=== PATIENT | male | born 1950 | race Caucasian/White ===

== ENCOUNTER 2024-11-26 22:10 | Inpatient (IN) ==
[2024-11-26] MEDS: ASPIRIN CHEW 324 MG ONE (22:35)
[2024-11-26 22:44] LABS: iSTAT Creatinine 1.2 mg/dl (0.6-1.3); iSTAT Hemoglobin 13.9 g/dl (14.0-18.0); iSTAT Ionized Calcium 1.13 mmol/l (1.12-1.32); iSTAT Potassium 4.6 mmol/L (3.3-5.0)
--- NOTE | 2024-11-26 22:50 | Emergency Department Note ---
Impression & Plan STEMI (ST elevation myocardial infarction), Tobacco use disorder, severe, dependence ED Provider Note CHIEF COMPLAINT: Fall, head injury, indigestion HISTORY OF PRESENT ILLNESS: This 74-year-old male patient past medical history of 1-1/2 pack/day smoker presents to the emergency department with complaints of an episode of nausea with dry heaves, subsequent lightheadedness and unwitnessed fall. Son states that the patient reported earlier that he may have lost consciousness for several seconds. He complains of a bit of nasal pain. Patient has been complaining of pain "just above the bellybutton." Patient denies any chest pain at this time. He states he does not have a family doctor, has not seen his doctor in 12 years. REVIEW OF SYSTEMS: A review of systems was performed with positives and pertinent negatives listed in the history of present illness. 10 systems were reviewed and are otherwise negative. ALLERGIES: see below MEDICATIONS: see below PMH: see below SOCIAL HISTORY: see below DDx: Acute coronary syndrome, aortic dissection, vasovagal syncope, cardiac arrhythmia, among others. PHYSICAL EXAM: Vital signs reviewed. General: Generally well-appearing 74-year-old male, in no significant distress. Thin HEENT: No scleral icterus, PERRLA, neck supple. Small contusion noted over the bridge of the nose. Cardiovascular: Bradycardic, occasional ectopy. No extra sounds. Pulmonary: Diminished breath sounds bilaterally, normal work of breathing. Abdomen: Soft, nontender, nondistended, positive bowel sounds. Musculoskeletal: Atraumatic, no peripheral edema. Neurologic: Patient awake alert and oriented x 3, speech is clear Skin: Warm, dry, no rash EMERGENCY DEPARTMENT COURSE/MDM: This patient was evaluated and appeared to be in no significant distress. Small contusion is noted over the bridge of the nose. The patient is complaining of some mid abdominal "indigestion" but no significant pain. He denies pain in through his back. EKG reveals large ST elevations consistent with ST elevation ID. A heart alert was called. Patient was given [address] imaging of the head and neck were performed due to his head injury/Syncope. CT imaging of the chest was performed to rule out dissection which is negative. Patient was informed of the findings and plan. Dr. Woods arrived at the patient's bedside with the Child Watch Attendant team. The patient was taken to the Child Watch Attendant for definitive management. Dr. Nuñez of the hospitalist service was contacted for admission and further management. MONITORING: An order for cardiac monitoring was placed and the patient is noted to be in a normal sinus rhythm at 71 beats per minute. RADIOLOGY: CT imaging of the head to my interpretation is negative for acute process, otherwise defer to radiology's over read. CT of the cervical spine is negative for acute fracture per radiology. Otherwise defer to radiology over read below CT imaging of the chest reveals no evidence of aortic dissection to my interpretation, otherwise see radiology's over read below. EKG: To my interpretation reveals a sinus bradycardia at [address] elevations in the anterior septal distribution, ST elevation ID. QTc of 477, no PVC, no PAC. DISPOSITION: Child Watch Attendant I have personally spent greater than 35 minutes of critical care time in the direct management of this patient. This includes bedside care, interpretation of diagnostic studies, and testing, discussion with consultants, patient, and family members, and other required patient management activities. This 35 minutes is in excess of all separately billable procedures. Past Med/Surg History Problem List (Updated 11/27/24 @ 12:16 by Michelle Herrera MD) COPD with emphysema NSVT (nonsustained ventricular tachycardia) Transaminitis Pulmonary nodule Elevated troponin Hypothyroidism (acquired) Tobacco use disorder, severe, dependence (Acute) STEMI (ST elevation myocardial infarction) (Acute) Social History Smoking Status: Current every day smoker Tobacco Type: Cigarettes Cigarettes Per Day: 30; Do You Dip or Chew Tobacco: No; Hx Alcohol Use: Yes Hx Substance Use: No Preferred Language: [place] Communication Ability: Effective Block Feeder Required: No Beliefs That Will Affect Care: None Current Living Situation: Spouse Feels Safe at Home: Yes Safety Concerns: Feels Safe At This Time Assistive Devices: Denture - Upper, Denture - Lower and Glasses Allergies Allergies Allergy/AdvReac Type Severity Reaction Status Date / Time No Known Allergies Allergy Unverified 11/27/24 00:59 Results & Data (ED) Vital Signs Vital Signs - 24 hr 11/26/24 22:13 11/26/24 22:29 11/26/24 22:30 Temperature 36.1 C L Temperature Source Temporal Artery Scan Pulse Rate 121 H 71 Pulse Rate [Apical] Pulse Rate from SpO2 Sensor Pulse Rhythm Pulse Rhythm [Apical] Pulse Strength [Apical] Respiratory Rate 14 Respiratory Effort / Characteristics Non-Labored Respiratory Depth Normal Respiratory Pattern Regular Blood Pressure 129/94 128/98 Blood Pressure [Right Radial Artery] Blood Pressure Mean 105 103 Blood Pressure Mean [Right Radial Artery] Blood Pressure Position [Right Radial Artery] Pulse Oximetry 99 Oxygen Delivery Method Room Air Oxygen Flow Rate Sepsis Recent Fever Within 48 Hours Yes Sepsis New/Unexplained Change in Mental Status N/A Sepsis Action Taken by Nursing No Action Required 11/26/24 22:38 11/26/24 22:45 11/26/24 22:46 Temperature Temperature Source Pulse Rate 85 Pulse Rate [Apical] Pulse Rate from SpO2 Sensor Pulse Rhythm Irregular Pulse Rhythm [Apical] Regular Pulse Strength [Apical] Normal Respiratory Rate 17 18 Respiratory Effort / Characteristics Non-Labored Respiratory Depth Normal Respiratory Pattern Regular Blood Pressure Blood Pressure [Right Radial Artery] 123/74 Blood Pressure Mean Blood Pressure Mean [Right Radial Artery] 90 Blood Pressure Position [Right Radial Artery] Sitting Pulse Oximetry 96 96 Oxygen Delivery Method Room Air Room Air Room Air Oxygen Flow Rate 96 Sepsis Recent Fever Within 48 Hours Sepsis New/Unexplained Change in Mental Status Sepsis Action Taken by Nursing 11/26/24 22:52 11/26/24 22:52 11/26/24 22:57 Temperature Temperature Source Pulse Rate 79 Pulse Rate [Apical] Pulse Rate from SpO2 Sensor 78 Pulse Rhythm Pulse Rhythm [Apical] Pulse Strength [Apical] Respiratory Rate 14 Respiratory Effort / Characteristics Respiratory Depth Respiratory Pattern Blood Pressure 151/107 H 151/107 H Blood Pressure [Right Radial Artery] Blood Pressure Mean 124 124 Blood Pressure Mean [Right Radial Artery] Blood Pressure Position [Right Radial Artery] Pulse Oximetry 97 Oxygen Delivery Method Oxygen Flow Rate Sepsis Recent Fever Within 48 Hours Sepsis New/Unexplained Change in Mental Status Sepsis Action Taken by Nursing 11/26/24 22:58 11/26/24 22:58 Temperature Temperature Source Pulse Rate Pulse Rate [Apical] 76 Pulse Rate from SpO2 Sensor Pulse Rhythm Pulse Rhythm [Apical] Pulse Strength [Apical] Respiratory Rate 20 Respiratory Effort / Characteristics Respiratory Depth Respiratory Pattern Blood Pressure 148/105 H Blood Pressure [Right Radial Artery] 148/105 H Blood Pressure Mean 117 Blood Pressure Mean [Right Radial Artery] 119 Blood Pressure Position [Right Radial Artery] Pulse Oximetry 95 Oxygen Delivery Method Room Air Oxygen Flow Rate Sepsis Recent Fever Within 48 Hours Sepsis New/Unexplained Change in Mental Status Sepsis Action Taken by Detention Medications Current Medication List: was personally reviewed by me Laboratory Data Attestation: I reviewed the patient's lab results. 11/27/24 04:22 11/27/24 04:22 Lab Results 11/26/24 11/26/24 Range/Units 22:28 22:31 WBC 13.24 H (4.8-10.8) K/ul RBC 4.72 (4.70-6.10) M/uL Hgb 13.6 L (14.0-18.0) g/dl POC Hgb 13.9 L (14.0-18.0) g/dl Hct 40.5 L (42.0-52.0) % POC Hct 41 L (42-52) % MCV 85.8 (80.0-100.0) fL MCH 28.8 (25.0-34.0) pg MCHC 33.6 (32.0-36.0) g/dL RDW Std Deviation 46.3 (36.4-46.3) fL RDW Coeff of Roseanne 14.6 H (11.5-14.5) % Plt Count 266 (130-400) K/uL MPV 9.1 L (9.4-12.4) fL Immature Gran % (Auto) 0.7 % Neut % (Auto) 74.7 % Lymph % (Auto) 16.5 % Harris % (Auto) 5.2 % Eos % (Auto) 2.1 % Baso % (Auto) 0.8 % Neut # (Auto) 9.89 H (1.40-6.50) K/uL Lymph # (Auto) 2.18 (1.20-3.40) K/uL Harris # (Auto) 0.69 H (0.11-0.59) K/uL Eos # (Auto) 0.28 (0.00-0.50) K/uL Baso # (Auto) 0.11 (0.00-0.20) K/uL Immature Gran # (Auto) 0.09 (0.01-0.20) K/uL PT 10.7 (9.0-12.0) Seconds INR 1.0 (0.9-1.1) APTT 24 (21-31) Seconds PTT Ratio 0.9 POC Sodium 139 (135-144) mmol/L Sodium 139 (136-145) mmol/L POC Potassium 4.6 (3.3-5.0) mmol/L Potassium 4.6 (3.5-5.1) mmol/L POC Chloride 107 (101-112) mmol/L Chloride 107 (98-107) mmol/L Carbon Dioxide 21 (21-32) mmol/L POC Total CO2 19 L (24-31) mmol/L Anion Gap 11 (3-11) POC Anion Gap 18.0 (16-25) mmol/L POC BUN 20 H (7-18) mg/dl BUN 21 (6-23) mg/dl Creatinine 1.21 (0.6-1.4) mg/dl POC Creatinine 1.2 (0.6-1.3) mg/dl Est Cr Clr Drug Dosing 44.4 ml/min eGFR 62.83 BUN/Creatinine Ratio 17.4 (10-20) Glucose 106 H (70-99(Fasting)) mg/dl POC Glucose (other) 100 H (70-99) mg/dl Calcium 9.6 (8.6-10.3) mg/dl POC Ioniz Calcium Dave 1.13 (1.12-1.32) mmol/l Magnesium 2.2 (1.7-2.4) mg/dl Total Bilirubin 0.5 (0.2-1.0) mg/dl AST 15 (13-39) U/L ALT 11 (7-52) U/L Alkaline Phosphatase 63 (34-104) U/L Total Creatine Kinase 152 (30-223) U/L Troponin I High Sens 108.3 H* (0-20) pg/ml B-Natriuretic Peptide 196 H (0-100) pg/ml Total Protein 7.6 (6.0-8.3) gm/dl Albumin 4.2 (3.4-5.0) gm/dl Globulin 3.4 (2.5-4.0) gm/dl Albumin/Globulin Ratio 1.2 (0.9-2) Lipase 18 (11-82) U/L TSH 10.959 H (0.300-4.500) uIu/ml Free T4 1.12 (0.61-1.60) ng/dl Administered Medications Aspirin ([facility]spirin 81 Mg Ectab) [facility] [place]: 12/27/24 08:59 Last Admin: 11/27/24 09:38 Dose: 81 mg Documented By: JAXSON Atorvastatin Calcium (Atorvastatin 40 Mg Tab) [address] [facility] Stop: 12/27/24 08:59 Last Admin: 11/27/24 09:37 Dose: 80 mg Documented By: JAXSON Lisinopril (Lisinopril 5 Mg Tab) [facility] [place] Stop: 12/27/24 08:59 Last Admin: 11/27/24 09:36 Dose: Not Given Documented By: JAXSON Metoprolol Tartrate (Metoprolol Tartrate 25 Mg Tab) 12.5 mg PO BID [facility] Stop: 12/27/24 08:59 Last Admin: 11/27/24 11:13 Dose: 12.5 mg Documented By: JAXSON Miscellaneous (Icu Protocol For Hyperglycemia) 1 each N/A ACHS [facility] Stop: 11/29/24 07:29 Last Admin: 11/27/24 11:14 Dose: Not Given Documented By: Admin: 11/27/24 08:00 Dose: Not Given Documented By: JAXSON Nicotine (Nicotine 21 Mg/24 Hr Tdsy) [address] [facility] Stop: 12/27/24 08:59 Last Admin: 11/27/24 09:38 Dose: Not Given Documented By: JAXSON Umeclidinium Pyote (Umeclidinium Pyote 62.5mcg/Blister 7 Puffs/Inhaler) 1 puffs INH DAILY [facility] Stop: 12/27/24 08:59 Last Admin: 11/27/24 09:38 Dose: Not Given Documented By: JAXSON Discontinued Medications Amiodarone HCl/Dextrose (Amiodarone 150mg / 100ml D5w) Confirm Administered Dose 150 mg IV .STK-MED ONE Stop: 11/26/24 23:15 Last Admin: 11/27/24 02:23 Dose: Not Given Documented By: SHADY Aspirin (Aspirin Chew 324 Mg) Confirm Administered Dose 324 mg .ROUTE .STK-MED ONE Stop: 11/26/24 22:35 Last Admin: 11/26/24 22:35 Dose: 324 mg Documented By: JULISA Aspirin (Aspirin Chew 324 Mg) 324 mg PO NOW STA Stop: 11/26/24 22:39 Last Admin: 11/26/24 22:51 Dose: Not Given Documented By: JULISA Eptifibatide (Eptifibatide 2 Mg/Ml 10 Ml Vial (Child Watch Attendant Use Only)) Confirm Administered Dose 20 mg IV .STK-MED ONE Stop: 11/26/24 23:30 Last Admin: 11/26/24 23:48 Dose: 20 mg Documented By: LOCO Eptifibatide (Eptifibatide 0.75 Mg/Ml 75mg Vial (Child Watch Attendant Use Only)) Confirm Administered Dose 75 mg IV .STK-MED ONE Stop: 11/26/24 23:30 Last Admin: 11/26/24 23:48 Dose: 75 mg Documented By: LOCO Fentanyl Citrate (Fentanyl Citrate Pf 100 Mcg/2 Ml Vial) Confirm Administered Dose 100 mcg .ROUTE .STK-MED ONE Stop: 11/26/24 22:51 Last Admin: 11/27/24 02:22 Dose: Not Given Documented By: SHADY Heparin Sodium (Porcine) (Heparin (Porcine) 1000 Unit/Ml 10 Ml (Child Watch Attendant Use Only)) Confirm Administered Dose 10,000 units .ROUTE .STK-MED ONE Stop: 11/26/24 22:51 Last Admin: 11/27/24 02:23 Dose: Not Given Documented By: SHADY Heparin Sodium/Sodium Chloride (Heparin In Nss Infusion 1000 Unit/500 Ml (2 U/Ml) Bag) Confirm Administered Dose 3,000 units IV .STK-MED ONE Stop: 11/26/24 22:51 Last Admin: 11/26/24 23:19 Dose: 3,000 units Documented By: CEDRIC Eptifibatide (Integrilin) 75 mg in 100 mls @ 4.688 mls/hr IV .[id number] [facility]; Protocol Stop: 11/27/24 02:30 Last Infusion: 11/27/24 02:21 Dose: Infused Documented By: SHADY Co-signed By: DAYRON Admin: 11/27/24 01:15 Dose: 1 mcg/kg/min, 4.7 mls/hr Documented By: SHADY Co-signed By: DAYRON Pantoprazole Sodium (Protonix) 40 mg in 10 mls @ 5 mls/min IV Q24H [facility] Stop: 12/27/24 08:59 Last Admin: 11/27/24 09:38 Dose: Not Given Documented By: JAXSON Ioversol (Optiray 350) Confirm Administered Dose 1 ml .ROUTE .STK-MED ONE Stop: 12/31/24 22:51 Last Admin: 11/27/24 02:23 Dose: Not Given Documented By: SHADY Ioversol (Optiray 320 125ml) 118 ml IV ONCE ONE Stop: 11/26/24 22:55 Last Admin: 11/26/24 22:55 Dose: 118 ml Documented By: WILFRED Metoprolol Tartrate (Metoprolol Tartrate 25 Mg Tab) 12.5 mg PO DAILY [facility] Stop: 11/26/24 22:38 Last Admin: 11/26/24 22:55 Dose: Not Given Documented By: JULISA Midazolam HCl (Midazolam Hcl 1 Mg/Ml 2ml Vial) Confirm Administered Dose 2 mg .ROUTE .STK-MED ONE Stop: 11/26/24 22:51 Last Admin: 11/27/24 02:23 Dose: Not Given Documented By: SHADY Nicardipine HCl (Nicardipine 2,000 Mcg/20 Ml Syr) Confirm Administered Dose 2,000 mcg .ROUTE .STK-MED ONE Stop: 11/26/24 22:52 Last Admin: 11/26/24 23:19 Dose: 2,000 mcg Documented By: CEDRIC Nitroglycerin/Dextrose (Nitroglycerin/D5w 100mcg/Ml 20ml Syr) Confirm Administered Dose 2,000 mcg .ROUTE .STK-MED ONE Stop: 11/26/24 22:52 Last Admin: 11/26/24 23:19 Dose: 2,000 mcg Documented By: CEDRIC Norepinephrine Bitartrate (Norepinephrine/D5w 4 Mg/250 Ml) Confirm Administered Dose 4 mg IV .STK-MED ONE Stop: 11/26/24 23:39 Last Admin: 11/26/24 23:49 Dose: 4 mg Documented By: LOCO Co-signed By: NATALIE Norepinephrine Bitartrate (Norepinephrine/D5w 4 Mg/250 Ml) Confirm Administered Dose 4 mg IV .STK-MED ONE Stop: 11/26/24 23:40 Last Admin: 11/26/24 23:49 Dose: Not Given Documented By: LOCO Ondansetron HCl (Ondansetron Inj 2 Mg/Ml 2 Ml Vial) Confirm Administered Dose 4 mg .ROUTE .STK-MED ONE Stop: 11/26/24 22:53 Last Admin: 11/26/24 22:54 Dose: 4 mg Documented By: JULISA Ondansetron HCl (Ondansetron Inj 2 Mg/Ml 2 Ml Vial) 4 mg IV NOW STA Stop: 11/26/24 22:54 Last Admin: 11/26/24 23:48 Dose: 4 mg Documented By: LOCO Oxymetazoline HCl (Oxymetazoline 0.05% 30 Ml Btl) 1 sprays NA NOW ONE Stop: 11/27/24 02:39 Last Admin: 11/27/24 03:19 Dose: 1 sprays Documented By: SHADY Pantoprazole Sodium (Pantoprazole 40 Mg Tab) 40 mg PO NOW STA Stop: 11/27/24 09:50 Last Admin: 11/27/24 11:13 Dose: Not Given Documented By: JAXSON Ticagrelor (Ticagrelor 90 Mg Tab) Confirm Administered Dose 180 mg .ROUTE .STK- MED ONE Stop: 11/26/24 23:04 Last Admin: 11/26/24 23:19 Dose: 180 mg Documented By: LOCO Discharge Plan Visit Data Chief Complaint: Abdominal Pain Stated Complaint: LIGHTHEADED, FELL ON FACE, SOB, ABD PAIN ED Provider: Michelle Herrera Discharge Problem: STEMI (ST elevation myocardial infarction), Tobacco use disorder, severe, dependence Discharge Instructions Interventions: ED Discharge Assessment Last Done: 11/26/24 22:58 Discharge Problem: STEMI (ST elevation myocardial infarction) Qualifiers: Involved coronary artery: LAD coronary artery Qualified Code(s): I21.02 - ST elevation (STEMI) myocardial infarction involving left anterior descending coronary artery
[2024-11-26] MEDS: ASPIRIN CHEW 324 MG PO STA (22:51)
[2024-11-26] MEDS: METOPROLOL TARTRATE 25 MG TAB PO STA (22:51)
[2024-11-26 22:53] LABS: Basophils # (auto) 0.11 K/uL (0.00-0.20); Basophils % (auto) 0.8 %; Eosinophils # (auto) 0.28 K/uL (0.00-0.50); Eosinophils % (auto) 2.1 %; Hematocrit (blood only) 40.5 % (42.0-52.0); Hemoglobin 13.6 g/dl (14.0-18.0); Immature Granulocytes # (auto) 0.09 K/uL (0.01-0.20); Immature Granulocytes % (auto) 0.7 %; Lymphocytes # (auto) 2.18 K/uL (1.20-3.40); Lymphocytes % (auto) 16.5 %; Mean Corpuscular Hemoglobin 28.8 pg (25.0-34.0); Mean Corpuscular Hgb Conc 33.6 g/dL (32.0-36.0); Mean Corpuscular Volume 85.8 fL (80.0-100.0); Mean Platelet Volume 9.1 fL (9.4-12.4); Monocytes # (auto) 0.69 K/uL (0.11-0.59); Monocytes % (auto) 5.2 %; Neutrophils # (auto) 9.89 K/uL (1.40-6.50); Neutrophils % (auto) 74.7 %; Platelet Count 266 K/uL (130-400); RDW Coefficient of Variation 14.6 % (11.5-14.5); RDW Standard Deviation 46.3 fL (36.4-46.3); Red Blood Count 4.72 M/uL (4.70-6.10); White Blood Count 13.24 K/ul (4.8-10.8)
[2024-11-26] MEDS: ONDANSETRON INJ 2 MG/ML 2 ML VIAL ONE (22:54)
[2024-11-26] MEDS: OPTIRAY 320 125ml IV ONE (22:55)
--- NOTE | 2024-11-26 23:07 | History & Physical Report ---
Date of Service November 26, 2024 Assessment & Plan (1) Tobacco use disorder, severe, dependence: (2) Hypothyroidism (acquired): (3) Elevated troponin: (4) STEMI (ST elevation myocardial infarction): Plan The patient is a 74-year-old male with past medical history significant for 1- 1/2 pack/day smoking, and has not been involved with medical care for the past 12 years. He presents to the emergency department with symptoms of an episode of nausea with dry heaves, lightheadedness, and had an unwitnessed fall. Upon presentation to the emergency department initial workup included an EKG, which showed STEMI involving inferior and lateral chest leads. He was given aspirin 324 mg, metoprolol tartrate 12.5 mg, and heart alert was called at that time. He was then taken to the cardiac catheterization lab by Dr. Vicente Woods, interventional cardiology, with separate report to follow #NSTEMI/heart alert- Admitted to intensive care unit Initial troponin 108.3 Order complete echocardiogram and serial laboratories Patient received stents x 2 for mid LAD occlusion There is an additional 75% circumflex lesion that patient may need to be taken back to the [facility] later in hospitalization He received aspirin 3 and 24 mg in the ED Continue aspirin 81 mg daily Metoprolol tartrate 12.5 mg p.o. twice daily Brilinta 90 mg p.o. twice daily Atorvastatin 80 mg daily Lisinopril 5 mg daily All of the cardiac medications per Dr. Woods Check a fasting lipid panel and hemoglobin A1c #Syncopal episode- CT scan of brain without contrast was unremarkable CT scan of cervical spine showed reversal of normal lordosis. Hypertrophic degenerative changes. Mild multilevel disc protrusions CTA PE protocol was negative for PE #Tobacco use disorder- 1.5 packs/day currently use NicoDerm patch #Hypothyroidism- Routine labs showed TSH 10.959 Can be addressed in the outpatient setting History of Present Illness Chief Complaint: The patient presented to the emergency department with an episode of nausea with dry heaves, lightheadedness, and then an unwitnessed fall. He was unsure of the length of time they have lost consciousness, but thinks was for several seconds. He also had complaint of nasal pain. Primary Care Provider: NO PCP The patient is a 74-year-old male with past medical history significant for 1- 1/2 pack/day smoking, and has not been involved with medical care for the past 12 years. He presents to the emergency department with symptoms of an episode of nausea with dry heaves, lightheadedness, and had an unwitnessed fall. Upon presentation to the emergency department initial workup included an EKG, which showed STEMI involving inferior and lateral chest leads. He was given aspirin 324 mg, metoprolol tartrate 12.5 mg, and heart alert was called at that time. He was then taken to the cardiac catheterization lab by Dr. Vicente Woods, interventional cardiology, with separate report to follow Allergies Allergy/AdvReac Type Severity Reaction Status Date / Time No Known Allergies Allergy Unverified 11/27/24 00:59 Past Med/Surg History Problem List (Updated 11/27/24 @ 04:57 by Mejia Anthony MD) Elevated troponin Hypothyroidism (acquired) Tobacco use disorder, severe, dependence STEMI (ST elevation myocardial infarction) Social History Smoking Status: Current every day smoker Tobacco Type: Cigarettes Cigarettes Per Day: 30; Do You Dip or Chew Tobacco: No; Hx Alcohol Use: Yes Hx Substance Use: No Preferred Language: Comoran Communication Ability: Effective Boiler Tender Required: No Beliefs That Will Affect Care: None Current Living Situation: Spouse Feels Safe at Home: Yes Safety Concerns: Feels Safe At This Time Assistive Devices: Denture - Upper, Denture - Lower and Glasses Review of Systems Review of Systems: The patient denies palpitations, lower extremity swelling, sore throat, fevers, chills, sweats, weight change, fatigue, nausea, vomiting, diarrhea , constipation, abdominal pain, pelvic pain, blood in urine or stool, dysuria, urinary frequency or urgency, lightheadedness, dizziness, headache, rash, abnormal bruising or bleeding, focal weakness, numbness or tingling in arms or legs, generalized arthralgias or myalgias, back or neck pain, or night sweats. The review of systems is otherwise negative other than for that already noted above, and at least 10 systems have been reviewed. Physical Exam Physical Exam: The patient is awake, alert and oriented 3, well developed and well nourished, normocephalic and atraumatic, lying in bed and in no acute distress. HEENT--PERRL, EOMI, mucous membranes and oropharynx mildly dry. Neck--supple. No JVD. No bruits. Thyroid normal, trachea midline, no adenopathy. Heart--normal S1 and S2. No murmurs, rubs or gallops. Lungs--decreased breath sounds throughout. No respiratory distress, no accessory muscle use. Abdomen--normal bowel sounds and soft. Nontender. Nondistended, no hernias or masses, no organomegaly. Extremities--no cyanosis or clubbing. No edema. There are good distal pulses b/l. Dermatologic--normal skin turgor, normal color, no abnormal lymph nodes, no rash. Neurologic--cranial nerves II through XII grossly intact. Rheumatologic--normal range of motion. Psychiatric--normal affect. Results & Data Results & Data Vital Signs (Past 12 Hours) Vital Signs Temp Pulse Pulse Resp BP BP Pulse Ox 11/26/24 22:58 76 20 148/105 H 95 11/26/24 22:46 18 123/74 96 11/26/24 22:45 11/26/24 22:38 85 17 96 11/26/24 22:30 71 11/26/24 22:13 36.1 C L 121 H 14 129/94 99 O2 Del Method O2 Flow Rate 11/26/24 22:58 Room Air 11/26/24 22:46 Room Air 11/26/24 22:45 Room Air 96 11/26/24 22:38 Room Air 11/26/24 22:30 11/26/24 22:13 Room Air Laboratory Results Laboratory Results WBC 13.47 K/ul (4.8-10.8) H 11/27/24 04:22 RBC 4.32 M/uL (4.70-6.10) L 11/27/24 04:22 Hgb 12.5 g/dl (14.0-18.0) L 11/27/24 04:22 POC Hgb 13.9 g/dl (14.0-18.0) L 11/26/24 22:31 Hct 37.3 % (42.0-52.0) L 11/27/24 04:22 POC Hct 41 % (42-52) L 11/26/24 22:31 MCV 86.3 fL (80.0-100.0) 11/27/24 04:22 MCH 28.9 pg (25.0-34.0) 11/27/24 04:22 MCHC 33.5 g/dL (32.0-36.0) 11/27/24 04:22 RDW Std Deviation 46.5 fL (36.4-46.3) H 11/27/24 04:22 RDW Coeff of Roseanne 14.6 % (11.5-14.5) H 11/27/24 04:22 Plt Count 260 K/uL (130-400) 11/27/24 04:22 MPV 8.9 fL (9.4-12.4) L 11/27/24 04:22 Immature Gran % (Auto) 0.4 % 11/27/24 04:22 Neut % (Auto) 82.7 % 11/27/24 04:22 Lymph % (Auto) 10.4 % 11/27/24 04:22 O'Brien % (Auto) 5.6 % 11/27/24 04:22 Eos % (Auto) 0.4 % 11/27/24 04:22 Baso % (Auto) 0.5 % 11/27/24 04:22 Neut # (Auto) 11.12 K/uL (1.40-6.50) H 11/27/24 04:22 Lymph # (Auto) 1.40 K/uL (1.20-3.40) 11/27/24 04:22 O'Brien # (Auto) 0.76 K/uL (0.11-0.59) H 11/27/24 04:22 Eos # (Auto) 0.06 K/uL (0.00-0.50) 11/27/24 04:22 Baso # (Auto) 0.07 K/uL (0.00-0.20) 11/27/24 04:22 Immature Gran # (Auto) 0.06 K/uL (0.01-0.20) 11/27/24 04:22 PT 10.7 Seconds (9.0-12.0) 11/26/24 22:28 INR 1.0 (0.9-1.1) 11/26/24 22: APTT 24 Seconds (21-31) 11/26/24 22: PTT Ratio 0.9 11/26/24 22:28 POC Sodium 139 mmol/L (135-144) 11/26/24 22:31 Sodium 139 mmol/L (136-145) 11/26/24 22:28 POC Potassium 4.6 mmol/L (3.3-5.0) 11/26/24 22: Potassium 4.6 mmol/L (3.5-5.1) 11/26/24 22:28 POC Chloride 107 mmol/L (101-112) 11/26/24 22: Chloride 107 mmol/L (98-107) 11/26/24 22:28 Carbon Dioxide 21 mmol/L (21-32) 11/26/24 22: POC Total CO2 19 mmol/L (24-31) L 11/26/24 22: Anion Gap 11 (3-11) 11/26/24 22:28 POC Anion Gap 18.0 mmol/L (16-25) 11/26/24 22:31 POC BUN 20 mg/dl (7-18) H 11/26/24 22: BUN 21 mg/dl (6-23) 11/26/24 22: Creatinine 1.21 mg/dl (0.6-1.4) 11/26/24 22: POC Creatinine 1.2 mg/dl (0.6-1.3) 11/26/24 22: Est Cr Clr Drug Dosing 44.4 ml/min 11/26/24 22: eGFR 62.83 11/26/24 22:28 BUN/Creatinine Ratio 17.4 (10-20) 11/26/24 22:28 Glucose 106 mg/dl (70-99(Fasting)) H 11/26/24 22:28 POC Glucose 101 mg/dl (70-99) H 11/27/24 01:24 POC Glucose (other) 100 mg/dl (70-99) H 11/26/24 22: Calcium 9.6 mg/dl (8.6-10.3) 11/26/24 22:28 POC Ioniz Calcium Dave 1.13 mmol/l (1.12-1.32) 11/26/24 22: Magnesium 2.2 mg/dl (1.7-2.4) 11/26/24 22:28 Total Bilirubin 0.5 mg/dl (0.2-1.0) 11/26/24 22:28 AST 15 U/L (13-39) 11/26/24 22: ALT 11 U/L (7-52) 11/26/24 22:28 Alkaline Phosphatase 63 U/L (34-104) 11/26/24 22:28 Total Creatine Kinase 152 U/L (30-223) 11/26/24 22:28 Troponin I High Sens 702353.2 pg/ml (0-20) H* D 11/27/24 00:34 B-Natriuretic Peptide 196 pg/ml (0-100) H 11/26/24 22:28 Total Protein 7.6 gm/dl (6.0-8.3) 11/26/24 22:28 Albumin 4.2 gm/dl (3.4-5.0) 11/26/24 22:28 Globulin 3.4 gm/dl (2.5-4.0) 11/26/24 22:28 Albumin/Globulin Ratio 1.2 (0.9-2) 11/26/24 22:28 Lipase 18 U/L (11-82) 11/26/24 22:28 TSH 10.959 uIu/ml (0.300-4.500) H 11/26/24 22:28 Free T4 1.12 ng/dl (0.61-1.60) 11/26/24 22:28 Nasal Screen MRSA (PCR) Negative (Negative) 11/27/24 00:[address] 11/26/24 22:24 Exam(s): CT C SPINE EXAM: CT Cervical Spine Without Intravenous Contrast CLINICAL HISTORY: Reason for exam: trauma. TECHNIQUE: Axial computed tomography images of the cervical spine without intravenous contrast. Automated exposure control was utilized for the study. A dose lowering technique was utilized adhering to the principles of ALARA. COMPARISON: No relevant prior studies available. FINDINGS: Vertebrae: There is reversal of the normal cervical lordosis. No acute fracture. There are hypertrophic degenerative changes. Discs/spinal canal/neural foramina: There are mild multilevel disc protrusions.. Soft tissues: There are retained foodstuffs within the esophagus. IMPRESSION: Reversal of normal cervical lordosis. Hypertrophic degenerative changes. There are mild multilevel disc protrusions. If further evaluation is clinically necessary, consider correlation with MRI Electronically signed by: Osmani Rosa MD 11/26/24 23:[address] 11/26/24 22:24 Exam(s): CT HEAD Without Contrast EXAM: CT Head Without Intravenous Contrast CLINICAL HISTORY: Reason for exam: CHI. TECHNIQUE: Axial computed tomography images of the head/brain without intravenous contrast. Automated exposure control was utilized for the study. A dose lowering technique was utilized adhering to the principles of ALARA. COMPARISON: No relevant prior studies available. FINDINGS: Brain: No acute intracranial hemorrhage. No significant white matter disease. No edema. Ventricles: Unremarkable. No ventriculomegaly. Bones/joints: Unremarkable. No acute fracture. Soft tissues: Unremarkable. Sinuses: There is a retention polyp or cyst noted within the left maxillary sinus.. Mastoid air cells: Unremarkable as visualized. No mastoid effusion. IMPRESSION: Unremarkable noncontrast CT scan of the brain Electronically signed by: Osmani Rosa MD 11/26/24 23:25 PM Chest CTA 11/26/24 22:33 Exam(s): CTA CHEST W/WO Contrast IV Amt: 118 cc's optiray 320 EXAM: CT Angiography Chest Without and With Intravenous Contrast CLINICAL HISTORY: Reason for exam: CP, STEMI, ABD pain. TECHNIQUE: Axial computed tomographic angiography images of the chest without and with intravenous contrast. CTDI is 8.88 mGy and DLP is 1888.58 mGy-cm. Automated exposure control was utilized for the study. A dose lowering technique was utilized adhering to the principles of ALARA. MIP reconstructed images were created and reviewed. CONTRAST: Patient received 118 cc's optiray 320 of IV contrast COMPARISON: No relevant prior studies available. FINDINGS: Aorta: There is ectasia and calcification noted of the thoracic aorta.. No thoracic aortic aneurysm or dissection is seen. Lungs: There are emphysematous changes. There is dependent atelectasis with possible bibasilar scarring.. Pleural space: No significant effusion. No pneumothorax. Heart: The heart is normal in size.. Bones/joints: There are degenerative changes in the spine. Soft tissues: Unremarkable. Lymph nodes: No enlarged lymph nodes. IMPRESSION: No thoracic aortic aneurysm or dissection is seen. See discussion above Electronically signed by: Osmani Rosa MD 11/26/24 23:14 PM Code Status & VTE Plan Code Status Full code VTE Prophylaxis Plan VTE Prophylaxis will be ordered: Yes Critical Care Time 50 minutes PG Care Time/CCT Total # of Minutes Spent Total Time Spent with Patient: Total time spent is greater than 50% in coordination of care (as documented) at patient's floor/unit and/or counseling patient: Coding Level of Care Code 82105 INT INP/OBS CARE MIN Diagnoses Tobacco use disorder, severe, dependence F17.200 Hypothyroidism (acquired) E03.9 Elevated troponin R79.89 STEMI (ST elevation myocardial infarction) I21.3
--- NOTE | 2024-11-26 23:09 | Pre Anesthesia Assessment ---
Date of Service November 26, 2024 Pre Sedation Assessment Vital Signs Temp Pulse Pulse Resp BP BP Pulse Ox 11/26/24 22:58 76 20 148/105 H 95 11/26/24 22:46 18 123/74 96 11/26/24 22:45 11/26/24 22:38 85 17 96 11/26/24 22:30 71 11/26/24 22:13 97.0 F L 121 H 14 129/94 99 O2 Del Method O2 Flow Rate 11/26/24 22:58 Room Air 11/26/24 22:46 Room Air 11/26/24 22:45 Room Air 96 11/26/24 22:38 Room Air 11/26/24 22:30 11/26/24 22:13 Room Air Cardiovascular + regular rate Respiratory + respiratory effort normal Pre-Sedation Airway Assessment Smoking Status: Current every day smoker Hx Sleep Apnea: No Hx Difficult Intubation: No Short, Thick Neck: No Thyromental Distance: < 3.5 Finger Breadths Oral Cavity: + WNL Mallampati Class: III ASA: ASA4 Procedure Planning Contraindications for Sedation: none Current Medications Reviewed: Yes Notes The planned sedation has been discussed with the patient. Informed Consent was obtained. I have identified the patient, determined the appropriateness of sedation and have assessed the patient immediately prior to the procedure. All medicine(s) and interventions are by my order.
[2024-11-26 23:11] LABS: Albumin Globulin Ratio 1.2 (0.9-2); Albumin Level 4.2 gm/dl (3.4-5.0); BUN Creatinine Ratio 17.4 (10-20); Bilirubin,Total 0.5 mg/dl (0.2-1.0); Calcium 9.6 mg/dl (8.6-10.3); Creatinine Clr Calc Pharmacy 44.4 ml/min; Globulin 3.4 gm/dl (2.5-4.0); Magnesium 2.2 mg/dl (1.7-2.4); Potassium 4.6 mmol/L (3.5-5.1); Total Protein 7.6 gm/dl (6.0-8.3)
--- NOTE | 2024-11-26 23:12 | Cardiology Consultation ---
Date of Consultation November 26, 2024 Assessment & Plan (1) STEMI (ST elevation myocardial infarction): Unusual presentation but ECG consistent with inferolateral STEMI and having increased ventricular ectopy on telemetry. Recommend proceeding with emergent cardiac catheterization and likely primary PCI. No apparent contraindications to procedure. Discussed risks, benefits, alternatives of procedure with patient and they are willing to proceed. Further recommendations pending findings of coronary angiography. History of Present Illness History of Present Illness 74-year-old man here with abdominal pain, vomiting and abnormal ECG consistent with inferolateral [place]. Patient seen emergently in the ED after heart alert activated in ED. No prior cardiac history. Cardiac risk factors include ongoing tobacco use (1 to 1.5 packs/day). Other medical issues include prostate issues, colonic polyps with rare GI bleeding but takes no medications and does not see a doctor regularly. Denies any recent chest pain. States he has been having intermittent epigastric abdominal pain more so after meals for months. Symptoms worse over the last 2 days. Has been limiting food intake to reduce symptoms. Tonight developed discomfort followed by nausea with dry heaving. Went to bathroom where while trying to vomit seem to pass out striking his nose on floor/toilet. Continued to have epigastric pain and brought to the ED by son. On arrival here still chest pain-free. ECG showed sinus rhythm with ST elevation inferior and greater than 3 mm laterally. Initial HS TropI 108, BNP 196. Head CT unremarkable. Chest CT negative for dissection. Family history: No history of premature CAD Social history: Active long-term smoker. Drinks more than 50 ounces of coffee a day. 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 . Patient History Social History Smoking Status: Current every day smoker Tobacco Type: Cigarettes Preferred Language: Albanian Feels Safe at Home: Yes Review of Systems Review of Systems: Not obtained in the setting of emergent situation Physical Exam Physical Exam: General: Comfortable HEENT: Sclerae anicteric Lungs: Clear anteriorly Cardiac: Regular rate and rhythm, no murmurs. Vascular: 2+ radial Abdomen: Soft, tender in epigastric region Extremities: Well perfused, no peripheral edema Neuro: Nonfocal Psych: Alert orient x3, normal affect and mood Results & Data Vital Signs (Past 12 Hours) Vital Signs Temp Pulse Pulse Resp BP BP Pulse Ox 11/26/24 22:58 76 20 148/105 H 95 11/26/24 22:46 18 123/74 96 11/26/24 22:45 11/26/24 22:38 85 17 96 11/26/24 22:30 71 11/26/24 22:13 97.0 F L 121 H 14 129/94 99 O2 Del Method O2 Flow Rate 11/26/24 22:58 Room Air 11/26/24 22:46 Room Air 11/26/24 22:45 Room Air 96 11/26/24 22:38 Room Air 11/26/24 22:30 11/26/24 22:13 Room Air PG Care Time/CCT Total # of Minutes Spent Total Time Spent with Patient: Total time spent is greater than 50% in coordination of care (as documented) at patient's floor/unit and/or counseling patient: Coding Level of Care Code 82603 OFFICE CONSULT LVL Diagnoses STEMI (ST elevation myocardial infarction) I21.3
--- NOTE | 2024-11-26 23:16 | CT Scan Report ---
Exam(s): CTA CHEST W/WO Contrast IV Amt: 118 cc's optiray 320 EXAM: CT Angiography Chest Without and With Intravenous Contrast CLINICAL HISTORY: Reason for exam: CP, STEMI, ABD pain. TECHNIQUE: Axial computed tomographic angiography images of the chest without and with intravenous contrast. CTDI is 8.88 mGy and DLP is 1888.58 mGy-cm. Automated exposure control was utilized for the study. A dose lowering technique was utilized adhering to the principles of ALARA. MIP reconstructed images were created and reviewed. CONTRAST: Patient received 118 cc's optiray 320 of IV contrast COMPARISON: No relevant prior studies available. FINDINGS: Aorta: There is ectasia and calcification noted of the thoracic aorta.. No thoracic aortic aneurysm or dissection is seen. Lungs: There are emphysematous changes. There is dependent atelectasis with possible bibasilar scarring.. Pleural space: No significant effusion. No pneumothorax. Heart: The heart is normal in size.. Bones/joints: There are degenerative changes in the spine. Soft tissues: Unremarkable. Lymph nodes: No enlarged lymph nodes. IMPRESSION: No thoracic aortic aneurysm or dissection is seen. See discussion above Electronically signed by: Osmani Rosa MD 11/26/24 23:14 PM
[2024-11-26] MEDS: niCARdipine 2,000 MCG/20 ML SYR ONE (23:19)
[2024-11-26] MEDS: NITROGLYCERIN/D5W 100MCG/ML 20ML SYR ONE (23:19)
[2024-11-26] MEDS: TICAGRELOR 90 MG TAB ONE (23:19)
--- NOTE | 2024-11-26 23:26 | CT Scan Report ---
Exam(s): CT HEAD Without Contrast EXAM: CT Head Without Intravenous Contrast CLINICAL HISTORY: Reason for exam: CHI. TECHNIQUE: Axial computed tomography images of the head/brain without intravenous contrast. Automated exposure control was utilized for the study. A dose lowering technique was utilized adhering to the principles of ALARA. COMPARISON: No relevant prior studies available. FINDINGS: Brain: No acute intracranial hemorrhage. No significant white matter disease. No edema. Ventricles: Unremarkable. No ventriculomegaly. Bones/joints: Unremarkable. No acute fracture. Soft tissues: Unremarkable. Sinuses: There is a retention polyp or cyst noted within the left maxillary sinus.. Mastoid air cells: Unremarkable as visualized. No mastoid effusion. IMPRESSION: Unremarkable noncontrast CT scan of the brain Electronically signed by: Osmani Rosa MD 11/26/24 23:25 PM
[2024-11-26 23:27] LABS: Thyroid Stimulating Hormone 10.959 uIu/ml (0.300-4.500)
[2024-11-26 23:28] LABS: Troponin I High Sensitivity 108.3 pg/ml (0-20)
--- NOTE | 2024-11-26 23:30 | CT Scan Report ---
Exam(s): CT C SPINE EXAM: CT Cervical Spine Without Intravenous Contrast CLINICAL HISTORY: Reason for exam: trauma. TECHNIQUE: Axial computed tomography images of the cervical spine without intravenous contrast. Automated exposure control was utilized for the study. A dose lowering technique was utilized adhering to the principles of ALARA. COMPARISON: No relevant prior studies available. FINDINGS: Vertebrae: There is reversal of the normal cervical lordosis. No acute fracture. There are hypertrophic degenerative changes. Discs/spinal canal/neural foramina: There are mild multilevel disc protrusions.. Soft tissues: There are retained foodstuffs within the esophagus. IMPRESSION: Reversal of normal cervical lordosis. Hypertrophic degenerative changes. There are mild multilevel disc protrusions. If further evaluation is clinically necessary, consider correlation with MRI Electronically signed by: Osmani Rosa MD 11/26/24 23:29 PM
[2024-11-26 23:32] LABS: Partial Thromboplastin Ratio 0.9; Partial Thromboplastin Time 24 Seconds (21-31); Prothrombin Time 10.7 Seconds (9.0-12.0)
[2024-11-26] MEDS: ONDANSETRON INJ 2 MG/ML 2 ML VIAL IV STA (23:48)
[2024-11-26] MEDS: EPTIFIBATIDE 0.75 MG/ML 75MG VIAL (CATH LAB USE ONLY) IV ONE (23:48)
[2024-11-26] MEDS: EPTIFIBATIDE 2 MG/ML 10 ML VIAL (CATH LAB USE ONLY) IV ONE (23:48)
[2024-11-26] MEDS: NOREPINEPHRINE/D5W 4 MG/250 ML IV ONE ×2 (23:49)
[2024-11-27 00:02] LABS: T4 Free Thyroxine 1.12 ng/dl (0.61-1.60)
[2024-11-27] MEDS ORDERED: ACETAMINOPHEN 325 MG TAB PO PRN (00:17)
[2024-11-27] MEDS ORDERED: EPTIFIBATIDE BOLUS/DRIP IV STA (00:21)
[2024-11-27] MEDS ORDERED: ONDANSETRON INJ 2 MG/ML 2 ML VIAL IV PRN ×2 (00:21→00:59)
--- NOTE | 2024-11-27 00:31 | Post Anesthesia Assessment ---
Date of Service November 27, 2024 Post Sedation Assessment Vital Signs Temp Pulse Pulse Resp BP BP Pulse Ox 11/26/24 22:58 76 20 148/105 H 95 11/26/24 22:46 18 123/74 96 11/26/24 22:45 11/26/24 22:38 85 17 96 11/26/24 22:30 71 11/26/24 22:13 97.0 F L 121 H 14 129/94 99 O2 Del Method O2 Flow Rate 11/26/24 22:58 Room Air 11/26/24 22:46 Room Air 11/26/24 22:45 Room Air 96 11/26/24 22:38 Room Air 11/26/24 22:30 11/26/24 22:13 Room Air Recovery Score Activity: Moves 4 extremities Respiration: Deep Breath/Cough Circulation: +/-20% PreAnes Value Consciousness: Fully Awake Oxygen Saturation: O2 needed for >90% Discharge Sedation Level of Care: Fast Track Phase II Post Sedation Plan On clinical assessment, the patient appears to have tolerated the sedation without complications. Patient is recovering as anticipated. Patient will continue to be monitored by nursing and may be discharged when sedation discharge criteria are met per below protocol. Upon Completions of procedure up to 15 minutes continue every 5 minute vital signs and the P.A.R. score; then discharge to a Phase I or Fast Track to Phase II per the following guidelines: * Discharge Patient to appropriate Phase II area if PAR is 8 or greater or return to pre- procedure baseline. The post - procedure orders will be as directed. * If PAR score is less than 8 or not return to pre-procedure baseline then patient will follow Phase I monitoring till PAR is reached for Phase II. The Phase I may be done in procedure room or may call to secure a Phase I area. * If naloxone or flumazenil are used for reversal, hold in Phase I for continued monitoring from when last reversal dose was given for a minimum of 60 minutes or longer pending the nurse and/or physician discretion of patient condition before discharge to Phase II. Please call the Sedation Physician to re-evaluate and complete post-note for discharge to Phase II area. Do NOT discharge from procedure sedation or Phase 1 until post- sedation evaluation note is complete by procedure /sedation MD Sedation Discharge Instructions to be given to the patient at discharge to home.
--- NOTE | 2024-11-27 00:37 | Cardiac Catheterization ---
[facility] Data: [facility] [employer] Cardiac Status Clinical evaluation leading to the procedure CAD Presenation: STEMI Anginal Classification: CCS IV Diagnostic Physicians Name: Vicente Woods MD Closure Device Recommendations: PCI without planned CABG Cardiac Cath Procedure Full Procedure Date November 27, 2024 Pre-Procedure Diagnosis Pre-Procedure Diagnosis: STEMI AUC Score AUC Score: 9 Post-Procedure Diagnosis Post-Procedure Diagnosis: Severe CAD Procedure(s) Performed Procedure(s) Performed: Coronary Angiography, Left Heart Cath and Drug Eluting Stent Inspector Circuitry Negative Vicente Woods MD Emergency Services Dispatcher(s) Vince Estimated Blood Loss Estimated Blood Loss: 15 Medication(s) Medication(s): Fentanyl, Heparin, Integrilin, Lidocaine 1%, Nicardipine, Nitroglycerin, Norepinephrine and Versed Medication(s): ticagrelor Summary of Findings Indication: STEMI/Heart Alert Access: 6 Fr right radial artery Catheters: [employer] left 3.5 guide Findings: LM -normal caliber, no significant disease LAD -large-caliber, acute 100% mid occlusion Circumflex -dominant, large caliber, 70-80% mid stenosis just after takeoff of OM 2. Remainder of AV groove circumflex without significant disease. PLB and small left PDA without significant disease. Bifurcating OM 2 with 60% proximal stenosis RCA -smallmedium, nondominant, 50% proximal, small distal vessel without significant disease LVEDP -20 -- PCI -- Antithrombotic therapy: Heparin, ticagrelor, Integrilin Procedure: Left main cannulated with Ikari left 3.5 guide Mapper 50 wire passed across lesion into what was initially thought to be LAD but later noted to be septal Mid LAD gently dilated with 2.5 balloon Second wire (BMW) navigated into true LAD and mid LAD predilated with 2.5 traction power engineer 50 redirected into small to medium caliber second diagonal Ostium of D2 dilated with 2.0 balloon Dilated LAD lesion stented with 3.0 x 22 mm [place] drug-eluting stent Stent post-dilated with 3.5 noncompliant balloon IC vasodilators administered for spasm Sluggish flow with haziness in mid segment just after stent Second JESUS (2.5 x 18 mm Óscar) placed to mid LAD overlapping distal aspect of initial stent Stent postdilated with stent balloon to high atmospheres Post procedure ELÍAS 3 flow, stents well expanded with minimal residual stenosis. Residual stenosis in jailed smallmedium D2 but ELÍAS-3 flow and no other apparent cardiac complications. Arterial Closure: TR band Summary: 1. Acute 100% mid segment occlusion of large wraparound LAD 2. Severe non-culprit coronary artery disease -70-80% mid circumflex after takeoff of OM2. 60% proximal OM2 50% proximal nondominant RCA 3. Elevated intracardiac filling pressure 4. Successful PCI of mid LAD with 2 drug-eluting stents (3.0 x 22, 2.5 x [address] [place] [address]: Postdilated with 3.5 NC). Recommendations: Admit to ICU for continued monitoring Loaded with ticagrelor 180 mg in [employer] Continue Integrilin infusion for 2 hours Continue dual-antiplatelet therapy for at least 1 year. Trend troponins until peak, Check Echo Uptitrate beta-bhupinder/EVA as BP allows High-dose statin Consult cardiac Rehab Smoking cessation Hemodynamics Rest Ao:: 111/68/85 Final Ao: 119/63/79 LV: 112/20 Recommendations Recommendations: PCI without planned CABG Radiation Exposure (mGy) Fasciotomy Contrast (mls) 150 Anesthesia Moderate 6804-6593 Procedural Complication(s) None Disposition ICU I attest to the content of the Intraoperative Record and any orders documented therein. Any exceptions are noted below. [facility] Card Cath Procedure Codes Cardiac Catheterization Procedure 1: Cardiovascular Cath Procedures: 09746 Coronaries and LHC (+/-LV) Moderate Sedation Procedure 1: Sedation/Anesthesia: 69984 Mod Sedation by the same physician;Init15 Min Child Age 5 & Up Procedure 2: Sedation/Anesthesia: 50995 Mod Sedation by the same physician; Ea [id number] Minutes Stenting Procedure 1: Cardiovascular Stent Procedures: 35195 Perc transluminal revascularization of acute sub/total occl, aMI PG Care Time/CCT Total # of Minutes Spent Total Time Spent with Patient: Total time spent is greater than 50% in coordination of care (as documented) at patient's floor/unit and/or counseling patient:
[2024-11-27] MEDS ORDERED: ACETAMINOPHEN 1000 MG/100 ML IV IV PRN (00:59)
[2024-11-27] MEDS ORDERED: ALBUT/IPRATROP 3MG/0.5MG NEB 3 ML VIAL NEB PRN (00:59)
[2024-11-27] MEDS: EPTIFIBATIDE 75 MG/100 ML VIAL IV SCH (01:15)
[2024-11-27] MEDS: fentaNYL citrate PF 100 MCG/2 ML VIAL ONE (02:22)
[2024-11-27] MEDS: AMIODARONE 150MG / 100ML D5W IV ONE (02:23)
[2024-11-27] MEDS: HEPARIN (PORCINE) 1000 UNIT/ML 10 ML (CATH LAB USE ONLY) ONE (02:23)
[2024-11-27] MEDS: MIDAZOLAM HCL 1 MG/ML 2ML VIAL ONE (02:23)
[2024-11-27] MEDS: OPTIRAY 350 ONE (02:23)
[2024-11-27] MEDS: OXYMETAZOLINE 0.05% 30 ML BTL ONE (03:19)
[2024-11-27 04:51] LABS: Basophils # (auto) 0.07 K/uL (0.00-0.20); Basophils % (auto) 0.5 %; Eosinophils # (auto) 0.06 K/uL (0.00-0.50); Eosinophils % (auto) 0.4 %; Hematocrit (blood only) 37.3 % (42.0-52.0); Hemoglobin 12.5 g/dl (14.0-18.0); Immature Granulocytes # (auto) 0.06 K/uL (0.01-0.20); Immature Granulocytes % (auto) 0.4 %; Lymphocytes % (auto) 10.4 %; Mean Corpuscular Hemoglobin 28.9 pg (25.0-34.0); Mean Corpuscular Hgb Conc 33.5 g/dL (32.0-36.0); Mean Corpuscular Volume 86.3 fL (80.0-100.0); Mean Platelet Volume 8.9 fL (9.4-12.4); Monocytes # (auto) 0.76 K/uL (0.11-0.59); Monocytes % (auto) 5.6 %; Neutrophils # (auto) 11.12 K/uL (1.40-6.50); Neutrophils % (auto) 82.7 %; Platelet Count 260 K/uL (130-400); RDW Coefficient of Variation 14.6 % (11.5-14.5); RDW Standard Deviation 46.5 fL (36.4-46.3); Red Blood Count 4.32 M/uL (4.70-6.10); White Blood Count 13.47 K/ul (4.8-10.8)
--- NOTE | 2024-11-27 05:07 | Billing Data ---
Date of Service November 27, 2024 Coding Level of Care Code 66398 CRITICAL CARE
[2024-11-27 05:09] LABS: Albumin Globulin Ratio 1.3 (0.9-2); Albumin Level 3.7 gm/dl (3.4-5.0); BUN Creatinine Ratio 18.8 (10-20); Bilirubin,Total 0.6 mg/dl (0.2-1.0); Calcium 8.7 mg/dl (8.6-10.3); Chol HDL Ratio 3.7 (0-5); Creatinine Clr Calc Pharmacy 47.8 ml/min; Globulin 2.8 gm/dl (2.5-4.0); Magnesium 2.2 mg/dl (1.7-2.4); Potassium 4.8 mmol/L (3.5-5.1); Total Protein 6.5 gm/dl (6.0-8.3)
[2024-11-27 05:18] LABS: Partial Thromboplastin Time 28 Seconds (21-31); Prothrombin Time 10.8 Seconds (9.0-12.0)
--- NOTE | 2024-11-27 06:08 | Critical Care Consultation ---
Date of Consultation November 26, 2024 Assessment & Plan (1) STEMI (ST elevation myocardial infarction): EKG with inferior ST elevation. Now presents to the ICU s/p cardiac cath where he underwent PCI with JESUS x 2 to the LAD. Patient also noted to have 70 to 80% stenosis of the circumflex artery. May require additional PCI. - And continue Integrilin drip for 2 hours per cardiology recommendations - Statin, EVA, BB, Brilinta, ASA - Follow-up TTE -Trend troponins for peak - Continuous monitoring on telemetry. Will monitor in ICU overnight. (2) Tobacco use disorder, severe, dependence: Encouraged cessation. Patient may have underlying COPD and would likely benefit from PFTs in the outpatient. History of Present Illness Attending Physician: Mejia Anthony MD History of Present Illness Patient is a 74-year-old male H significant for cigarette smoking ( 1-1.5 PPD for 50 years) who presented to the emergency department earlier today with intermittent epigastric pain, development of nausea and vomiting, and syncopal episode in the bathroom which she struck his nose on the toilet. EKG showed ST elevation in inferior leads, and initial troponin was elevated at 108. CTA chest was negative for dissection. He was taken to the [facility] emergently and underwent PCI x 2 to the LAD. Patient also noted to have 70 to 80% occlusion of the circumflex artery. Patient now admitted to ICU post cath. On arrival to the ICU the patient is alert and oriented, no acute distress, and hemodynamically stable. He is currently maintaining oxygen saturations on room air. He denies chest pain or palpitations, shortness of breath, abdominal pain, further nausea or vomiting, diarrhea. He denies headache, dizziness, sore throat, fevers. He denies any changes in gait or swelling of feet. He is noted to have ecchymosis of the nose from fall earlier this evening. Patient reports having a cough when she was treated with antibiotics in September but is otherwise been in his normal state of health. Allergies Allergy/AdvReac Type Severity Reaction Status Date / Time No Known Allergies Allergy Unverified 11/27/24 00:59 Patient History Social History Smoking Status: Current every day smoker Tobacco Type: Cigarettes Cigarettes Per Day: 30; Do You Dip or Chew Tobacco: No; Hx Alcohol Use: Yes Hx Substance Use: No Preferred Language: Slovak Communication Ability: Effective Java Manager Required: No Beliefs That Will Affect Care: None Current Living Situation: Spouse Feels Safe at Home: Yes Safety Concerns: Feels Safe At This Time Assistive Devices: Denture - Upper, Denture - Lower and Glasses Review of Systems Review of Systems: All systems reviewed & are unremarkable except as noted in HPI & below Physical Exam Constitutional: cooperative and comfortable Eyes: PERRL, conjunctivae normal, anicteric sclerae ENMT: external ear and nose normal, oropharynx normal Neck: trachea midline, no thyromegaly Respiratory: normal respiratory effort, lungs clear to auscultation Cardiovascular: RRR, no murmur, no edema Gastrointestinal (Abdomen): normal bowel sounds, soft, nontender, no hepatosplenomegaly Musculoskeletal: no cyanosis or clubbing, extremities motor strength 5/5 Skin: no rashes, warm and dry Neurologic: PERRL, EOMI, accommodation nl, no face palsy, no dysarthria Psychiatric: A+Ox3, euthymic affect Results & Data Results & Data Vital Signs (Past 12 Hours) Vital Signs Temp Pulse Pulse Resp BP BP BP 11/27/24 02:25 107/84 11/27/24 02:25 107/84 11/27/24 02:21 76 12 11/27/24 02:00 71 14 11/27/24 01:59 114/79 11/27/24 01:59 114/79 11/27/24 01:57 76 17 11/27/24 01:37 36.4 C L 76 12 112/47 L 11/27/24 01:27 74 14 11/27/24 01:27 76 18 97/71 L 11/27/24 01:25 97/71 L 11/27/24 01:25 97/71 L 11/27/24 01:15 74 18 11/27/24 01:09 77 12 11/27/24 00:59 72 11/27/24 00:26 112/47 L 11/27/24 00:26 112/47 L 11/27/24 00:26 112/47 L 11/27/24 00:26 112/47 L 11/27/24 00:26 36.4 C 75 16 112/47 L 11/26/24 22:58 148/105 H 11/26/24 22:58 76 20 148/105 H 11/26/24 22:57 79 14 11/26/24 22:52 151/107 H 11/26/24 22:52 151/107 H 11/26/24 22:46 18 123/74 11/26/24 22:45 11/26/24 22:38 85 17 11/26/24 22:30 71 11/26/24 22:29 128/98 11/26/24 22:13 36.1 C L 121 H 14 129/94 Pulse Ox O2 Del Method O2 Flow Rate 11/27/24 02:25 11/27/24 02:25 11/27/24 02:21 96 11/27/24 02:00 97 11/27/24 01:59 11/27/24 01:59 11/27/24 01:57 97 11/27/24 01:37 99 Room Air 11/27/24 01:27 97 11/27/24 01:27 97 Room Air 11/27/24 01:25 11/27/24 01:25 11/27/24 01:15 98 11/27/24 01:09 97 11/27/24 00:59 11/27/24 00:26 11/27/24 00:26 11/27/24 00:26 11/27/24 00:26 11/27/24 00:26 98 Room Air 11/26/24 22:58 11/26/24 22:58 95 Room Air 11/26/24 22:57 97 11/26/24 22:52 11/26/24 22:52 11/26/24 22:46 96 Room Air 11/26/24 22:45 Room Air 96 11/26/24 22:38 96 Room Air 11/26/24 22:30 11/26/24 22:29 11/26/24 22:13 99 Room Air Coding Level of Care Code 42735 IN/OBS CONSULT LVL 2,35M Diagnoses STEMI (ST elevation myocardial infarction) I21.3 Tobacco use disorder, severe, dependence F17.200 Time Spent (min) 43
[2024-11-27 07:06] LABS: Estimated Average Glucose 117 mg/dl; Hemoglobin A1C 5.7 % (4.5-5.6)
--- NOTE | 2024-11-27 07:47 | Hospitalist Progress Note ---
Date of Service November 27, 2024 Assessment & Plan (1) Tobacco use disorder, severe, dependence: (2) Hypothyroidism (acquired): (3) Elevated troponin: (4) STEMI (ST elevation myocardial infarction): Plan The patient is a 74-year-old male with past medical history significant for 1-1 /2 pack/day smoking, and has not been involved with medical care for the past 12 years. He presents to the emergency department with symptoms of an episode of nausea with dry heaves, lightheadedness, and had an unwitnessed fall. Upon presentation to the emergency department initial workup included an EKG, which showed STEMI involving inferior and lateral chest leads. He was given aspirin 324 mg, metoprolol tartrate 12.5 mg, and heart alert was called at that time. He was then taken to the cardiac catheterization lab by Dr. Vicente Woods, interventional cardiology, with separate report to follow #STEMI - currently in ICU - initial trop 108.3 - ECHO showing EF: 25-30%, apical akinesis, mid anterior / anteroseptal / septal akinesis, severely hypokinetic mid inferior / lateral segments, BNP 196, HA1c: 5.7 - cards on board, s/p 2 stents to mid LAD occlusion - poss return to cath lab technologist later in hospitalization for 75% circumflex lesion - s/p aspirin 324mg in the ED, cont asp 81 mg daily - cont metoprolol tartrate 12.5mg BID - Brilinta 90mg po BID - fasting lipid panel reviewed, cont atorvastatin 80mg daily - lisinopril 5mg daily #Syncopal episode - CT brain w/o contrast unremarkable - CT C-spine showed reversal of normal lordosis, hypertrophic degenerative changes, mild multilevel disc protrusions - CTA PE neg for PE #Abnormal AST / ALT - normal on admission - hep C ab negative - like in the setting of STEMI - trend at this time #Tobacco use d/o - currently 1/2 ppd smoker - nicoderm patch #Hypothyroidism - TSH 10.959 - follow up as outpatient #Syncopal episode- - CT scan of brain without contrast was unremarkable - CT scan of cervical spine showed reversal of normal lordosis. Hypertrophic degenerative changes. Mild multilevel disc protrusions - CTA PE protocol was negative for PE #Tobacco use disorder- - 1.5 packs/day currently use - NicoDerm patch #Hypothyroidism- - Routine labs showed TSH 10.959 / FT4: 1.12 - Can be addressed in the outpatient setting Admission and Anticipated Discharge Date Admission Date: November 26, 2024 Subjective Cardiac stent placed yesterday Currently no new complaints. states he is anxious to get home Review of Systems Review of Systems: Comprehensive ROS neg Physical Exam Physical Exam: Gen: NAD, lying in bed comfortable HEENT: wound on the nose healing, MMM CVS: s1s2nl, RRR Lungs: CTAB Abd: soft, NT, nl BS Ext: no edema Results & Data Results & Data Vital Signs (Past 12 Hours) Vital Signs Temp Pulse Pulse Resp BP BP BP 11/27/24 06:00 62 20 101/71 11/27/24 05:07 36.7 C 66 16 98/69 L 11/27/24 04:07 78 18 94/71 L 11/27/24 03:37 98/73 L 11/27/24 03:33 66 16 11/27/24 03:27 93 H 17 11/27/24 03:07 99/67 L 11/27/24 02:57 63 13 11/27/24 02:36 72 27 H 11/27/24 02:25 107/84 11/27/24 02:25 107/84 11/27/24 02:21 76 12 11/27/24 02:00 71 14 11/27/24 01:59 114/79 11/27/24 01:59 114/79 11/27/24 01:57 76 17 11/27/24 01:37 36.4 C L 76 12 112/47 L 11/27/24 01:27 74 14 11/27/24 01:27 76 18 97/71 L 11/27/24 01:25 97/71 L 11/27/24 01:25 97/71 L 11/27/24 01:15 74 18 11/27/24 01:09 77 12 11/27/24 00:59 72 11/27/24 00:30 11/27/24 00:26 112/47 L 11/27/24 00:26 112/47 L 11/27/24 00:26 112/47 L 11/27/24 00:26 112/47 L 11/27/24 00:26 36.4 C 75 16 112/47 L 11/26/24 22:58 148/105 H 11/26/24 22:58 76 20 148/105 H 11/26/24 22:57 79 14 11/26/24 22:52 151/107 H 11/26/24 22:52 151/107 H 11/26/24 22:46 18 123/74 11/26/24 22:45 11/26/24 22:38 85 17 11/26/24 22:30 71 11/26/24 22:29 128/98 11/26/24 22:13 36.1 C L 121 H 14 129/94 Pulse Ox O2 Del Method O2 Flow Rate 11/27/24 06:00 98 Room Air 11/27/24 05:07 99 Room Air 11/27/24 04:07 98 Room Air 11/27/24 03:37 11/27/24 03:33 99 11/27/24 03:27 96 11/27/24 03:07 11/27/24 02:57 97 11/27/24 02:36 96 11/27/24 02:25 11/27/24 02:25 11/27/24 02:21 96 11/27/24 02:00 97 11/27/24 01:59 11/27/24 01:59 11/27/24 01:57 97 11/27/24 01:37 99 Room Air 11/27/24 01:27 97 11/27/24 01:27 97 Room Air 11/27/24 01:25 11/27/24 01:25 11/27/24 01:15 98 11/27/24 01:09 97 11/27/24 00:59 11/27/24 00:30 Room Air 11/27/24 00:26 11/27/24 00:26 11/27/24 00:26 11/27/24 00:26 11/27/24 00:26 98 Room Air 11/26/24 22:58 11/26/24 22:58 95 Room Air 11/26/24 22:57 97 11/26/24 22:52 11/26/24 22:52 11/26/24 22:46 96 Room Air 11/26/24 22:45 Room Air 96 11/26/24 22:38 96 Room Air 11/26/24 22:30 11/26/24 22:29 11/26/24 22:13 99 Room Air PG Care Time/CCT Total # of Minutes Spent Total Time Spent with Patient: Total time spent is greater than 50% in coordination of care (as documented) at patient's floor/unit and/or counseling patient: Coding Level of Care Code 44980 SUB INP/OBS CARE 2/35MIN Diagnoses Tobacco use disorder, severe, dependence F17.200 Hypothyroidism (acquired) E03.9 Elevated troponin R79.89 STEMI (ST elevation myocardial infarction) I21.02 Involved coronary artery: LAD coronary artery (4) STEMI (ST elevation myocardial infarction) Involved coronary artery: LAD coronary artery Qualified Code(s): I21.02 - ST elevation (STEMI) myocardial infarction involving left anterior descending coronary artery
[2024-11-27] MEDS: ICU Protocol for HYPERglycemia SCH (08:00)
--- NOTE | 2024-11-27 08:51 | Critical Care Progress Note ---
Date of Service November 27, 2024 Assessment & Plan (1) STEMI (ST elevation myocardial infarction): (2) Tobacco use disorder, severe, dependence: Plan: Encouraged cessation. Patient may have underlying COPD and would likely benefit from PFTs in the outpatient. (3) Pulmonary nodule: (4) Transaminitis: (5) NSVT (nonsustained ventricular tachycardia): (6) COPD with emphysema: Plan CT chest 11/26/2024 personally reviewed: Centrilobular and paraseptal emphysema appreciated bilaterally Left upper lobe peripheral mixed nodule already Dependent atelectasis bilateral lower lobes No significant mediastinal lymphadenopathy -- STEMI S/p PCI with JESUS x 2 to the LAD 11/26/2024 S/p Integrilin drip Continue with statin, EVA, BB, Brilinta, ASA Continue to trend troponin --Nonsustained V. tach Likely secondary to cardiac intervention Continue with beta-blockers --COPD with emphysema, active smoker Not on any inhalers at home Recommend Stiolto or Anoro to be used on discharge --Left upper lobe pulmonary nodule Would recommend to have a repeat CAT scan of the chest in 3 months --Transaminitis Elevation of AST as well as ALT Could be a sequela to STEMI Continue to monitor --Prophylaxis VTE: IPC GI: Pantoprazole Lines: Peripheral Diet: Cardiac Plan: In/out: -524, urine output 800 mL Start the patient on Incruse while in the hospital On discharge recommend Stiolto or Anoro Repeat CAT scan of the chest in 3 months for the pulmonary nodule Continue with beta-bhupinder, statin, lisinopril Please note the above document was generated using voice recognition software. It may contain grammatical, syntax or spelling errors.Any formal questions or concerns about the content, text or information contained within the body of this dictation should be directly addressed to the provider for clarification. Admission and Anticipated Discharge Date Admission Date: November 26, 2024 Subjective Patient seen and examined at bedside. No acute distress, no adverse events overnight He did have some nonsustained V. tach Denied any chest pain, no shortness of breath Saturating 97% on room air Systolic blood pressure was in the 118, MAP in the high 60s to low 70s Denied any nausea or vomiting, fair appetite Review of Systems 2 Review of Systems: All systems reviewed & are unremarkable except as noted in Subjective Physical Exam 2 Physical Exam: Constitutional: No acute distress HEENT: EOMI, PERRLA Respiratory system: Decreased air entry bilaterally, no wheeze, no rhonchi, mild crackles bilateral lower lobes CVS: S1-S2 positive, no murmurs or gallops Abdomen: Soft, nontender, nondistended, positive bowel sounds x4 Extremities: +2 pulses bilaterally radialis/ dorsalis pedis, no cyanosis, no edema Neuro: Awake alert oriented x3 Psych: Normal mood and affect G/U: No Bolanos Skin: no rashes, warm and dry Lymphatic: no cervical or axillary lymphadenopathy Results & Data Results & Data Vital Signs (Past 12 Hours) Vital Signs Temp Pulse Pulse Resp BP BP BP 11/27/24 07:37 109/79 11/27/24 07:30 78 18 11/27/24 07:18 65 17 11/27/24 07:07 112/77 11/27/24 06:00 62 20 101/71 11/27/24 05:07 36.7 C 66 16 98/69 L 11/27/24 04:07 78 18 94/71 L 11/27/24 03:37 98/73 L 11/27/24 03:33 66 16 11/27/24 03:27 93 H 17 11/27/24 03:07 99/67 L 11/27/24 02:57 63 13 11/27/24 02:36 72 27 H 11/27/24 02:25 107/84 11/27/24 02:25 107/84 11/27/24 02:21 76 12 11/27/24 02:00 71 14 11/27/24 01:59 114/79 11/27/24 01:59 114/79 11/27/24 01:57 76 17 11/27/24 01:37 36.4 C L 76 12 112/47 L 11/27/24 01:27 74 14 11/27/24 01:27 76 18 97/71 L 11/27/24 01:25 97/71 L 11/27/24 01:25 97/71 L 11/27/24 01:15 74 18 11/27/24 01:09 77 12 11/27/24 00:59 72 11/27/24 00:30 11/27/24 00:26 112/47 L 11/27/24 00:26 112/47 L 11/27/24 00:26 112/47 L 11/27/24 00:26 112/47 L 11/27/24 00:26 36.4 C 75 16 112/47 L 11/26/24 22:58 148/105 H 11/26/24 22:58 76 20 148/105 H 11/26/24 22:57 79 14 11/26/24 22:52 151/107 H 11/26/24 22:52 151/107 H 11/26/24 22:46 18 123/74 11/26/24 22:45 11/26/24 22:38 85 17 11/26/24 22:30 71 11/26/24 22:29 128/98 11/26/24 22:13 36.1 C L 121 H 14 129/94 Pulse Ox O2 Del Method O2 Flow Rate 11/27/24 07:37 11/27/24 07:30 97 11/27/24 07:18 97 11/27/24 07:07 11/27/24 06:00 98 Room Air 11/27/24 05:07 99 Room Air 11/27/24 04:07 98 Room Air 11/27/24 03:37 11/27/24 03:33 99 11/27/24 03:27 96 11/27/24 03:07 11/27/24 02:57 97 11/27/24 02:36 96 11/27/24 02:25 11/27/24 02:25 11/27/24 02:21 96 11/27/24 02:00 97 11/27/24 01:59 11/27/24 01:59 11/27/24 01:57 97 11/27/24 01:37 99 Room Air 11/27/24 01:27 97 11/27/24 01:27 97 Room Air 11/27/24 01:25 11/27/24 01:25 11/27/24 01:15 98 11/27/24 01:09 97 11/27/24 00:59 11/27/24 00:30 Room Air 11/27/24 00:26 11/27/24 00:26 11/27/24 00:26 11/27/24 00:26 11/27/24 00:26 98 Room Air 11/26/24 22:58 11/26/24 22:58 95 Room Air 11/26/24 22:57 97 11/26/24 22:52 11/26/24 22:52 11/26/24 22:46 96 Room Air 11/26/24 22:45 Room Air 96 11/26/24 22:38 96 Room Air 11/26/24 22:30 11/26/24 22:29 11/26/24 22:13 99 Room Air Laboratory Results 11/27/24 04:22 11/27/24 04:22 Coding Level of Care Code 23726 SUB INP/OBS CARE 3/50MIN Diagnoses STEMI (ST elevation myocardial infarction) I21.3 Tobacco use disorder, severe, dependence F17.200 Pulmonary nodule R91.1 Transaminitis R74.01 NSVT (nonsustained ventricular tachycardia) I47.29 COPD with emphysema J43.9
[2024-11-27] MEDS ORDERED: ATORVASTATIN 40 MG TAB PO SCH (09:00)
[2024-11-27] MEDS: lisinopril 5 MG TAB PO SCH (09:36)
[2024-11-27] MEDS: ATORVASTATIN 40 MG TAB PO SCH (09:37)
[2024-11-27] MEDS: PANTOprazole 40 MG/10 ML SYR IV SCH (09:38)
[2024-11-27] MEDS: UMECLIDINIUM BROMIDE 62.5MCG/BLISTER 7 PUFFS/INHALER INH SCH (09:38)
[2024-11-27] MEDS: ASPIRIN 81 MG ECTAB PO SCH (09:38)
[2024-11-27] MEDS: NICOTINE 21 MG/24 HR TDSY TD SCH (09:38)
--- NOTE | 2024-11-27 11:07 | XCELERA ---
[id number] [id number]
[2024-11-27] MEDS: PANTOprazole 40 MG TAB PO STA (11:13)
[2024-11-27] MEDS: METOPROLOL TARTRATE 25 MG TAB PO SCH (11:13)
[2024-11-27] MEDS: TICAGRELOR 90 MG TAB PO ONE (16:46)
[2024-11-27] MEDS: HEPARIN SODIUM/DEXTROSE 25,000 UNITS/500 ML BAG IV SCH (16:46)
[2024-11-27] MEDS: Heparin IV Adult Wt-Based Low-Dose w/ INITIAL Bolus Protocol IV SCH (16:49)
[2024-11-27] MEDS: HEPARIN SOD (PORCINE) 1000 UNIT/ML IV ONE (17:52)
[2024-11-27] MEDS: TICAGRELOR 90 MG TAB PO SCH (20:34)
--- NOTE | 2024-11-27 20:57 | Cardiology Progress Note ---
Date of Service November 27, 2024 Assessment & Plan (1) CAD (coronary artery disease): Plan: Acute MI100% mid LADpost 2 JESUS 80% mid LCx. 60% OM 2 2. Severe LV dysfunctionEF 25 to 30% with apical akinesis 3. Nonsustained VT 4. Tobacco abuse 5. Hypothyroidism 6. Transaminitis 7. Small pericardial effusion 8. Mild pulmonary hypertension Chest pain-free today Significant troponin elevation, >200, but now downtrending No signs of heart failure on exam. No apparent access site complications Frequent NSVT on telemetry Large anterior/apical wall motion abnormality with dense akinesis on echofeel he is high risk to develop LV thrombus Will start heparin infusion today. Long-term plan on anticoagulation with Eliquis Continue DAPT with aspirin/ticagrelor. Likely home on dual therapy (clopidogrel, Xarelto) Up titrate metoprolol as able Start lisinopril as BP allows Will consider spironolactone tomorrow. Add SGLT2 at some point Monitor need for additional diuretic. Likely home 1. Lasix Continue current statin Plan for staged PCI of severe mid circumflex disease tomorrow. Please keep n.p.o. past midnight. Hold heparin on-call to [facility]. Will plan on repeating echo later in hospitalization but discussed possible need of LifeVest. He and his will discuss. Appreciate ICU and hospital medicine team care. Admission and Anticipated Discharge Date Admission Date: November 26, 2024 Subjective Patient seen this morning. Denied any chest pain. Reported feeling tired. No abdominal pain. Telemetryfrequent runs of nonsustained VT, longest run 10 beats per Review of Systems Review of Systems: All systems reviewed & are unremarkable except as noted in HPI & below Physical Exam Physical Exam: General: Comfortable HEENT: Sclerae anicteric Lungs: Clear to auscultation bilaterally Cardiac: Regular rate and rhythm, no murmurs. Vascular: Right radial artery access site with no ecchymosis, hematoma. Distal pulse and sensation intact. Abdomen: Soft, nontender Extremities: Well perfused, no peripheral edema Neuro: Nonfocal Psych: Alert orient x3, normal affect and mood Results & Data Vital Signs (Past 12 Hours) Vital Signs Pulse Resp BP Pulse Ox 11/27/24 20:00 74 26 H 96 11/27/24 19:37 101/72 01/01/25 19:37 101/72 11/27/24 19:36 64 20 96 11/27/24 19:30 78 12 96 11/27/24 19:03 67 22 95 11/27/24 11:07 104/77 11/27/24 11:03 78 22 96 11/27/24 10:07 101/70 11/27/24 10:00 61 23 97 11/27/24 09:37 108/77 11/27/24 09:33 70 19 98 PG Care Time/CCT Total # of Minutes Spent Total Time Spent with Patient: Total time spent is greater than 50% in coordination of care (as documented) at patient's floor/unit and/or counseling patient: Coding Level of Care Code 61743 SUB INP/OBS CARE 3/50MIN Diagnoses CAD (coronary artery disease) I25.10
--- NOTE | 2024-11-27 23:13 | Electrocardiogram Report ---
Test Reason : Blood Pressure : */* mmHG Vent. Rate : 59 BPM Atrial Rate : 59 BPM P-R Int : 162 ms QRS Dur : 70 ms QT Int : 452 ms P-R-T Axes : 75 13 73 degrees QTcB Int : 447 ms Sinus bradycardia Low voltage QRS Acute Anterior infarct ST elevation consider anterior injury or acute infarct Inferolateral injury pattern ACUTE [place] / STEMI Abnormal ECG No previous ECGs available Confirmed by Jose Alicea ([id number]) on 11/27/2024 11:13:21 PM Referred By: NO PCP Confirmed By: Jose Alicea
--- NOTE | 2024-11-27 23:14 | Electrocardiogram Report ---
Test Reason : Blood Pressure : */* mmHG Vent. Rate : 75 BPM Atrial Rate : 74 BPM P-R Int : 168 ms QRS Dur : 70 ms QT Int : 424 ms P-R-T Axes : 68 -50 54 degrees QTcB Int : 473 ms Sinus rhythm Premature ventricular complexes Left axis deviation Anterior infarct When compared with ECG of 26-Nov-2024 22:24, QRS axis Shifted left Questionable change in initial forces of Septal leads ST no longer elevated in Inferior leads ST less elevated in Anterior leads T wave inversion now evident in Anterior leads Confirmed by Jose Alicea ([id number]) on 11/27/2024 11:14:08 PM Referred By: MELVIN PCP Confirmed By: Jose Alicea
[2024-11-28 04:54] LABS: Basophils # (auto) 0.06 K/uL (0.00-0.20); Basophils % (auto) 0.5 %; Eosinophils # (auto) 0.15 K/uL (0.00-0.50); Eosinophils % (auto) 1.4 %; Hematocrit (blood only) 35.4 % (42.0-52.0); Hemoglobin 12.1 g/dl (14.0-18.0); Immature Granulocytes # (auto) 0.04 K/uL (0.01-0.20); Immature Granulocytes % (auto) 0.4 %; Lymphocytes # (auto) 2.02 K/uL (1.20-3.40); Lymphocytes % (auto) 18.5 %; Mean Corpuscular Hgb Conc 34.2 g/dL (32.0-36.0); Mean Corpuscular Volume 84.9 fL (80.0-100.0); Mean Platelet Volume 9.2 fL (9.4-12.4); Monocytes # (auto) 0.87 K/uL (0.11-0.59); Neutrophils # (auto) 7.77 K/uL (1.40-6.50); Neutrophils % (auto) 71.2 %; Platelet Count 228 K/uL (130-400); RDW Coefficient of Variation 14.6 % (11.5-14.5); RDW Standard Deviation 45.6 fL (36.4-46.3); Red Blood Count 4.17 M/uL (4.70-6.10); White Blood Count 10.91 K/ul (4.8-10.8)
[2024-11-28 05:09] LABS: Albumin Globulin Ratio 1.2 (0.9-2); Albumin Level 3.4 gm/dl (3.4-5.0); Bilirubin,Total 0.7 mg/dl (0.2-1.0); Calcium 8.6 mg/dl (8.6-10.3); Creatinine Clr Calc Pharmacy 45.1 ml/min; Globulin 2.9 gm/dl (2.5-4.0); Magnesium 2.2 mg/dl (1.7-2.4); Potassium 4.1 mmol/L (3.5-5.1); Total Protein 6.3 gm/dl (6.0-8.3)
[2024-11-28 05:44] LABS: ANTI-Xa, UFH(UnfractionatedHep 0.13 IU/ml (0.3-0.7); Partial Thromboplastin Ratio 1.1; Partial Thromboplastin Time 30 Seconds (21-31); Prothrombin Time 10.9 Seconds (9.0-12.0)
[2024-11-28] MEDS: HEPARIN IV BOLUS 2,000 UNITS in SYRINGE 0 ML IV STA (06:44)
--- NOTE | 2024-11-28 07:29 | Hospitalist Progress Note ---
Date of Service November 28, 2024 Assessment & Plan (1) Tobacco use disorder, severe, dependence: (2) Hypothyroidism (acquired): (3) Elevated troponin: (4) STEMI (ST elevation myocardial infarction): Plan The patient is a 74-year-old male with past medical history significant for 1-1 /2 pack/day smoking, and has not been involved with medical care for the past 12 years. He presents to the emergency department with symptoms of an episode of nausea with dry heaves, lightheadedness, and had an unwitnessed fall. Upon presentation to the emergency department initial workup included an EKG, which showed STEMI involving inferior and lateral chest leads. He was given aspirin 324 mg, metoprolol tartrate 12.5 mg, and heart alert was called at that time. He was then taken to the cardiac catheterization lab by Dr. Vicente Woods, interventional cardiology, with separate report to follow #STEMI #Severe LV dysfunction #Nonsustained VTach - currently in ICU - initial trop 108.3, peaked to > 200k (in the setting of intervention) but now downtrending - ECHO showing EF: 25-30%, apical akinesis, mid anterior / anteroseptal / septal akinesis, severely hypokinetic mid inferior / lateral segments, BNP 196, HA1c: 5.7 - cards on board, s/p 2 stents to mid LAD occlusion - s/p stent to mid circ lesion on 11/28/24 - rpt ECHO tomorrow - s/p aspirin 324mg in the ED, cont asp 81mg and brilinta - cont metoprolol tartrate 12.5mg BID and lisinopril 2.5mg - started on Empagliflozin - fasting lipid panel reviewed, cont atorvastatin 80mg daily - hep gtt transitioned to Eliquis by cardiology for severe LV dysfunction and increased risk of LV thrombus #Syncopal episode - CT brain w/o contrast unremarkable - CT C-spine showed reversal of normal lordosis, hypertrophic degenerative changes, mild multilevel disc protrusions - CTA PE neg for PE #Abnormal AST / ALT - improving - normal on admission - hep C ab negative - like in the setting of STEMI - trending down #Tobacco use d/o #COPD with emphysema #Pulmonary nodule - currently 1/2 ppd smoker - nicoderm patch - pulm on board, recs Stiolto or Anoro on discharge , PFTs as outpatient - repeat CT chest in 3 months for pulm nodule eval #Hypothyroidism - TSH 10.959 - follow up as outpatient Dispo: potential d/c on 11/29 once pt gets lifevest and cardiology clearance 11/28: and children at bedside Admission and Anticipated Discharge Date Admission Date: November 26, 2024 Subjective Pt currently stable Not offering any new complaints Review of Systems Review of Systems: Comprehensive ROS neg Physical Exam Physical Exam: Gen: NAD, lying in bed comfortable HEENT: wound on the nose healing, MMM CVS: s1s2nl, RRR Lungs: CTAB Abd: soft, NT, nl BS Ext: no edema Results & Data Results & Data Vital Signs (Past 12 Hours) Vital Signs Temp Pulse Resp BP Pulse Ox O2 Del Method 11/28/24 06:39 64 21 98 11/28/24 06:39 36.7 C 91/55 L 11/28/24 06:39 91/55 L 11/28/24 06:39 91/55 L 11/28/24 06:27 62 20 96 11/28/24 05:37 111/75 11/28/24 05:37 111/75 11/28/24 05:33 63 12 98 11/28/24 05:27 63 20 98 11/28/24 04:37 102/69 11/28/24 04:15 58 L 16 96 11/28/24 04:00 74 11 L 96 11/28/24 03:12 36.5 C 79 25 H 96 11/28/24 02:37 101/73 11/28/24 02:36 73 21 98 11/28/24 02:15 60 21 97 11/28/24 01:37 96/67 L 11/28/24 01:37 96/67 L 11/28/24 01:27 56 L 13 99 11/28/24 01:12 66 17 95 11/28/24 01:04 94/72 L 11/28/24 00:39 59 L 21 96 11/28/24 00:37 102/68 11/28/24 00:37 102/68 11/28/24 00:36 60 20 95 11/28/24 00:30 61 22 95 11/28/24 00:27 56 L 11/28/24 00:00 36.5 C 56 L 18 97 11/27/24 23:45 63 13 98 11/27/24 23:37 95/70 L 11/27/24 23:12 56 L 16 97 11/27/24 23:06 60 19 99 11/27/24 22:37 93/63 L 11/27/24 22:37 93/63 L 11/27/24 22:37 93/63 L 11/27/24 22:36 62 22 98 11/27/24 22:30 58 L 13 97 11/27/24 22:03 36.8 C 65 21 97 11/27/24 21:42 61 21 97 11/27/24 21:30 73 23 118/86 97 Room Air 11/27/24 21:00 66 21 97 11/27/24 20:37 99/72 L 11/27/24 20:37 99/72 L 11/27/24 20:37 99/72 L 11/27/24 20:37 99/72 L 11/27/24 20:33 63 20 97 11/27/24 20:33 102/74 11/27/24 20:00 74 26 H 96 11/27/24 19:37 101/72 11/27/24 19:37 101/72 11/27/24 19:36 64 20 96 11/27/24 19:30 78 12 96 PG Care Time/CCT Total # of Minutes Spent Total Time Spent with Patient: Total time spent is greater than 50% in coordination of care (as documented) at patient's floor/unit and/or counseling patient: Coding Level of Care Code 72630 SUB INP/OBS CARE 3/50MIN Diagnoses Tobacco use disorder, severe, dependence F17.200 Hypothyroidism (acquired) E03.9 Elevated troponin R79.89 STEMI (ST elevation myocardial infarction) I21.02 Involved coronary artery: LAD coronary artery (4) STEMI (ST elevation myocardial infarction) Involved coronary artery: LAD coronary artery Qualified Code(s): I21.02 - ST elevation (STEMI) myocardial infarction involving left anterior descending coronary artery
[2024-11-28] MEDS: PANTOprazole 40 MG TAB PO SCH (07:42)
--- NOTE | 2024-11-28 07:49 | Critical Care Progress Note ---
Date of Service November 28, 2024 Assessment & Plan (1) STEMI (ST elevation myocardial infarction): (2) Tobacco use disorder, severe, dependence: Plan: Encouraged cessation. Patient may have underlying COPD and would likely benefit from PFTs in the outpatient. (3) Pulmonary nodule: (4) Transaminitis: (5) NSVT (nonsustained ventricular tachycardia): (6) COPD with emphysema: Plan CT chest 11/26/2024 personally reviewed: Centrilobular and paraseptal emphysema appreciated bilaterally Left upper lobe peripheral mixed nodule already Dependent atelectasis bilateral lower lobes No significant mediastinal lymphadenopathy -- STEMI S/p PCI with JESUS x 2 to the LAD 11/26/2024 S/p Integrilin drip Continue with statin, EVA, BB, Brilinta, ASA Continue to trend troponin --Nonsustained V. tach Likely secondary to cardiac intervention Continue with beta-blockers --COPD with emphysema, active smoker Not on any inhalers at home Recommend Stiolto or Anoro to be used on discharge --Left upper lobe pulmonary nodule Would recommend to have a repeat CAT scan of the chest in 3 months --Transaminitis Elevation of AST as well as ALT Could be a sequela to STEMI Continue to monitor --Prophylaxis VTE: Heparin drip GI: Pantoprazole Lines: Peripheral Diet: Cardiac Plan: In/out: -691, urine output 1250 Patient is supposed to go for cardiac cath today Repeat CAT scan of the chest in 3 months for the pulmonary nodule Continue with beta-bhupinder, statin, lisinopril Disposition as per cardiology and primary team Please note the above document was generated using voice recognition software. It may contain grammatical, syntax or spelling errors.Any formal questions or concerns about the content, text or information contained within the body of this dictation should be directly addressed to the provider for clarification. Admission and Anticipated Discharge Date Admission Date: November 26, 2024 Subjective Patient seen and examined at bedside. No acute distress, no adverse events overnight Denied any chest pain No shortness of breath Is n.p.o. for cardiac cath today Denies any abdominal pain Review of Systems 2 Review of Systems: All systems reviewed & are unremarkable except as noted in Subjective Physical Exam 2 Physical Exam: Constitutional: No acute distress HEENT: EOMI, PERRLA Respiratory system: Decreased air entry bilaterally, no wheeze, no rhonchi, mild crackles bilateral lower lobes CVS: S1-S2 positive, no murmurs or gallops Abdomen: Soft, nontender, nondistended, positive bowel sounds x4 Extremities: +2 pulses bilaterally radialis/ dorsalis pedis, no cyanosis, no edema Neuro: Awake alert oriented x3 Psych: Normal mood and affect G/U: No Bolanos Skin: no rashes, warm and dry Lymphatic: no cervical or axillary lymphadenopathy Results & Data Results & Data Vital Signs (Past 12 Hours) Vital Signs Temp Pulse Resp BP Pulse Ox O2 Del Method 11/28/24 06:39 64 21 98 11/28/24 06:39 36.7 C 91/55 L 11/28/24 06:39 91/55 L 11/28/24 06:39 91/55 L 11/28/24 06:27 62 20 96 11/28/24 05:37 111/75 11/28/24 05:37 111/75 11/28/24 05:33 63 12 98 11/28/24 05:27 63 20 98 11/28/24 04:37 102/69 11/28/24 04:15 58 L 16 96 11/28/24 04:00 74 11 L 96 11/28/24 03:12 36.5 C 79 25 H 96 11/28/24 02:37 101/73 11/28/24 02:36 73 21 98 11/28/24 02:15 60 21 97 11/28/24 01:37 96/67 L 11/28/24 01:37 96/67 L 11/28/24 01:27 56 L 13 99 11/28/24 01:12 66 17 95 11/28/24 01:04 94/72 L 11/28/24 00:39 59 L 21 96 11/28/24 00:37 102/68 11/28/24 00:37 102/68 11/28/24 00:36 60 20 95 11/28/24 00:30 61 22 95 11/28/24 00:27 56 L 11/28/24 00:00 36.5 C 56 L 18 97 11/27/24 23:45 63 13 98 11/27/24 23:37 95/70 L 11/27/24 23:12 56 L 16 97 11/27/24 23:06 60 19 99 11/27/24 22:37 93/63 L 11/27/24 22:37 93/63 L 11/27/24 22:37 93/63 L 11/27/24 22:36 62 22 98 11/27/24 22:30 58 L 13 97 11/27/24 22:03 36.8 C 65 21 97 11/27/24 21:42 61 21 97 11/27/24 21:30 73 23 118/86 97 Room Air 11/27/24 21:00 66 21 97 11/27/24 20:37 99/72 L 11/27/24 20:37 99/72 L 11/27/24 20:37 99/72 L 11/27/24 20:37 99/72 L 11/27/24 20:33 63 20 97 11/27/24 20:33 102/74 11/27/24 20:00 74 26 H 96 Laboratory Results 11/28/24 04:28 11/28/24 04:28 Coding Level of Care Code 18310 SUB INP/OBS CARE 3/50MIN Diagnoses STEMI (ST elevation myocardial infarction) I21.02 Involved coronary artery: LAD coronary artery Tobacco use disorder, severe, dependence F17.200 Pulmonary nodule R91.1 Transaminitis R74.01 NSVT (nonsustained ventricular tachycardia) I47.29 COPD with emphysema J43.9 (1) STEMI (ST elevation myocardial infarction) Involved coronary artery: LAD coronary artery Qualified Code(s): I21.02 - ST elevation (STEMI) myocardial infarction involving left anterior descending coronary artery
--- NOTE | 2024-11-28 09:15 | Pre Anesthesia Assessment ---
Date of Service November 28, 2024 Pre Sedation Assessment Vital Signs Temp Pulse Resp BP Pulse Ox O2 Del Method 11/28/24 08:00 74 18 103/73 97 11/28/24 07:36 57 L 17 95/62 L 96 11/28/24 06:39 64 21 98 11/28/24 06:39 98.1 F 91/55 L 11/28/24 06:39 91/55 L 11/28/24 06:39 91/55 L 11/28/24 06:27 62 20 96 11/28/24 05:37 111/75 11/28/24 05:37 111/75 11/28/24 05:33 63 12 98 11/28/24 05:27 63 20 98 11/28/24 04:37 102/69 11/28/24 04:15 58 L 16 96 11/28/24 04:00 74 11 L 96 11/28/24 03:12 97.7 F 79 25 H 96 11/28/24 02:37 101/73 11/28/24 02:36 73 21 98 11/28/24 02:15 60 21 97 11/28/24 01:37 96/67 L 11/28/24 01:37 96/67 L 11/28/24 01:27 56 L 13 99 11/28/24 01:12 66 17 95 11/28/24 01:04 94/72 L 11/28/24 00:39 59 L 21 96 11/28/24 00:37 102/68 11/28/24 00:37 102/68 11/28/24 00:36 60 20 95 11/28/24 00:30 61 22 95 11/28/24 00:27 56 L 11/28/24 00:00 97.7 F 56 L 18 97 11/27/24 23:45 63 13 98 11/27/24 23:37 95/70 L 11/27/24 23:12 56 L 16 97 11/27/24 23:06 60 19 99 11/27/24 22:37 93/63 L 11/27/24 22:37 93/63 L 11/27/24 22:37 93/63 L 11/27/24 22:36 62 22 98 11/27/24 22:30 58 L 13 97 11/27/24 22:03 98.2 F 65 21 97 11/27/24 21:42 61 21 97 11/27/24 21:30 73 23 118/86 97 Room Air 11/27/24 21:00 66 21 97 11/27/24 20:37 99/72 L 11/27/24 20:37 99/72 L 11/27/24 20:37 99/72 L 11/27/24 20:37 99/72 L 11/27/24 20:33 63 20 97 11/27/24 20:33 102/74 11/27/24 20:00 74 26 H 96 11/27/24 19:37 101/72 11/27/24 19:37 101/72 11/27/24 19:36 64 20 96 11/27/24 19:30 78 12 96 11/27/24 19:03 67 22 95 11/27/24 11:07 104/77 11/27/24 11:03 78 22 96 11/27/24 10:07 101/70 11/27/24 10:00 61 23 97 11/27/24 09:37 108/77 11/27/24 09:33 70 19 98 Cardiovascular + regular rate Respiratory + respiratory effort normal Pre-Sedation Airway Assessment Smoking Status: Current every day smoker Hx Sleep Apnea: No Hx Difficult Intubation: No Short, Thick Neck: No Thyromental Distance: < 3.5 Finger Breadths Oral Cavity: + WNL Mallampati Class: III ASA: ASA4 Procedure Planning Contraindications for Sedation: none Current Medications Reviewed: Yes Notes The planned sedation has been discussed with the patient. Informed Consent was obtained. I have identified the patient, determined the appropriateness of sedation and have assessed the patient immediately prior to the procedure. All medicine(s) and interventions are by my order.
[2024-11-28] MEDS: niCARdipine 2,000 MCG/20 ML SYR ONE (09:23)
[2024-11-28] MEDS: NITROGLYCERIN/D5W 100MCG/ML 20ML SYR ONE (09:24)
[2024-11-28] MEDS: OPTIRAY 350 ONE (09:51)
[2024-11-28] MEDS: HEPARIN (PORCINE) 1000 UNIT/ML 10 ML (CATH LAB USE ONLY) ONE (09:51)
[2024-11-28] MEDS: MIDAZOLAM HCL 1 MG/ML 2ML VIAL ONE (09:51)
[2024-11-28] MEDS: fentaNYL citrate PF 100 MCG/2 ML VIAL ONE (09:51)
--- NOTE | 2024-11-28 10:00 | Post Anesthesia Assessment ---
Date of Service November 28, 2024 Post Sedation Assessment Vital Signs Temp Pulse Resp BP Pulse Ox O2 Del Method 11/28/24 08:00 74 18 103/73 97 11/28/24 07:36 57 L 17 95/62 L 96 11/28/24 06:39 64 21 98 11/28/24 06:39 98.1 F 91/55 L 11/28/24 06:39 91/55 L 11/28/24 06:39 91/55 L 11/28/24 06:27 62 20 96 11/28/24 05:37 111/75 11/28/24 05:37 111/75 11/28/24 05:33 63 12 98 11/28/24 05:27 63 20 98 11/28/24 04:37 102/69 11/28/24 04:15 58 L 16 96 11/28/24 04:00 74 11 L 96 11/28/24 03:12 97.7 F 79 25 H 96 11/28/24 02:37 101/73 11/28/24 02:36 73 21 98 11/28/24 02:15 60 21 97 11/28/24 01:37 96/67 L 11/28/24 01:37 96/67 L 11/28/24 01:27 56 L 13 99 11/28/24 01:12 66 17 95 11/28/24 01:04 94/72 L 11/28/24 00:39 59 L 21 96 11/28/24 00:37 102/68 11/28/24 00:37 102/68 11/28/24 00:36 60 20 95 11/28/24 00:30 61 22 95 11/28/24 00:27 56 L 11/28/24 00:00 97.7 F 56 L 18 97 11/27/24 23:45 63 13 98 11/27/24 23:37 95/70 L 11/27/24 23:12 56 L 16 97 11/27/24 23:06 60 19 99 11/27/24 22:37 93/63 L 11/27/24 22:37 93/63 L 11/27/24 22:37 93/63 L 11/27/24 22:36 62 22 98 11/27/24 22:30 58 L 13 97 11/27/24 22:03 98.2 F 65 21 97 11/27/24 21:42 61 21 97 11/27/24 21:30 73 23 118/86 97 Room Air 11/27/24 21:00 66 21 97 11/27/24 20:37 99/72 L 11/27/24 20:37 99/72 L 11/27/24 20:37 99/72 L 11/27/24 20:37 99/72 L 11/27/24 20:33 63 20 97 11/27/24 20:33 102/74 11/27/24 20:00 74 26 H 96 11/27/24 19:37 101/72 11/27/24 19:37 101/72 11/27/24 19:36 64 20 96 11/27/24 19:30 78 12 96 11/27/24 19:03 67 22 95 11/27/24 11:07 104/77 11/27/24 11:03 78 22 96 11/27/24 10:07 101/70 Recovery Score Activity: Moves 4 extremities Respiration: Deep Breath/Cough Circulation: +/-20% PreAnes Value Consciousness: Fully Awake Oxygen Saturation: O2 needed for >90% Discharge Sedation Level of Care: Fast Track Phase II Post Sedation Plan On clinical assessment, the patient appears to have tolerated the sedation without complications. Patient is recovering as anticipated. Patient will continue to be monitored by nursing and may be discharged when sedation discharge criteria are met per below protocol. Upon Completions of procedure up to 15 minutes continue every 5 minute vital signs and the P.A.R. score; then discharge to a Phase I or Fast Track to Phase II per the following guidelines: * Discharge Patient to appropriate Phase II area if PAR is 8 or greater or return to pre- procedure baseline. The post - procedure orders will be as directed. * If PAR score is less than 8 or not return to pre-procedure baseline then patient will follow Phase I monitoring till PAR is reached for Phase II. The Phase I may be done in procedure room or may call to secure a Phase I area. * If naloxone or flumazenil are used for reversal, hold in Phase I for continued monitoring from when last reversal dose was given for a minimum of 60 minutes or longer pending the nurse and/or physician discretion of patient condition before discharge to Phase II. Please call the Sedation Physician to re-evaluate and complete post-note for discharge to Phase II area. Do NOT discharge from procedure sedation or Phase 1 until post- sedation evaluation note is complete by procedure /sedation MD Sedation Discharge Instructions to be given to the patient at discharge to home.
--- NOTE | 2024-11-28 10:11 | Cardiac Catheterization ---
[facility] Data: Data Warehouse Consultant Cardiac Status Clinical evaluation leading to the procedure CAD Presenation: STEMI Diagnostic Physicians Name: Vicente Woods MD Closure Device Recommendations: PCI without planned CABG Cardiac Cath Procedure Full Procedure Date November 28, 2024 Pre-Procedure Diagnosis Pre-Procedure Diagnosis: CAD AUC Score AUC Score: 7 Post-Procedure Diagnosis Post-Procedure Diagnosis: Severe CAD, Successful PCI and Elevated Intracardiac Pressures Procedure(s) Performed Procedure(s) Performed: Coronary Angiography, Left Heart Cath and Drug Eluting Stent Card Feeder Vicente Woods MD Manager Architectural(s) Vince Estimated Blood Loss Estimated Blood Loss: 5 Medication(s) Medication(s): Fentanyl, Heparin, Nicardipine, Nitroglycerin and Versed Medication(s): Ticagrelor Summary of Findings Indication: Staged PCI of mid circumflex Access: 6 Fr right radial artery Catheters: EBU 3.5 guide, pigtail Findings: LM -normal caliber, no significant disease LAD -large-caliber, mLAD stents widely patent, distal vessel with sluggish flow (ELÍAS II-III) but widely patent and wraps around apex. Small jailed D2 with 90+% ostial stenosis but similar ELÍAS II-III flow as LAD. Circumflex -dominant, large caliber, 70-80% mid stenosis just after takeoff of OM 2. Remainder of AV groove circumflex without significant disease. PLB and small left PDA without significant disease. Bifurcating OM2 with 60% proximal stenosis RCA -not visualized on current study. Previously noted to be smallmedium caliber, nondominant, 50% proximal, small distal vessel without significant disease LVEDP - 22 -- PCI -- Antithrombotic therapy: Heparin, ticagrelor Procedure: Left main cannulated with EBU 3.5 guide [place] blue wire placed into distal circumflex Commercial Sales Consultant 50 wire navigated into OM 2 Mid circumflex dilated with 3.0 balloon Dilated mid circumflex stented with 3.5 x 18 mm Ector drug-eluting stent Stent post-dilated with 4.0 noncompliant balloon Post procedure ELÍAS 3 flow, stent well expanded with minimal residual stenosis. Mild ostial stenosis of OM 2 but ELÍAS-3 flow and no other apparent cardiac complications. Arterial Closure: TR band Summary: 1. Successful staged PCI of mid circumflex with single drug-eluting stent (3.5 x 18 mm [place]scar [place]: Postdilated with 4.0 NC). 2. Widely patent LAD stents. Jailed small D2 with 90% ostial stenosis 3. Elevated intracardiac filling pressure Recommendations: Medically manage small jailed diagonal. Continue antiplatelet therapy with ticagrelor, aspirin Anticoagulation with Eliquis starting this evening Continue GDMT for ICM Hemodynamics Rest Ao:: 88/50/65 Final Ao: 98/55/75 LV: 100/22 Recommendations Recommendations: PCI without planned CABG Radiation Exposure (mGy) 1145 Contrast (mls) 65 Anesthesia Moderate 1261-1683 Procedural Complication(s) None Disposition ICU I attest to the content of the Intraoperative Record and any orders documented therein. Any exceptions are noted below. [facility] Card Cath Procedure Codes Cardiac Catheterization Procedure 1: Cardiovascular Cath Procedures: 62051 Left Heart Cath (+/-LV) Moderate Sedation Procedure 1: Sedation/Anesthesia: 86414 Mod Sedation by the same physician;Init15 Min Child Age 5 & Up Procedure 2: Sedation/Anesthesia: 48914 Mod Sedation by the same physician; Ea [id number] Minutes Stenting Procedure 1: Cardiovascular Stent Procedures: 25251 Perc transcatheter placement of intracoronary stent(s), with ang PG Care Time/CCT Total # of Minutes Spent Total Time Spent with Patient: Total time spent is greater than 50% in coordination of care (as documented) at patient's floor/unit and/or counseling patient:
--- NOTE | 2024-11-28 10:39 | Cardiology Progress Note ---
Date of Service November 28, 2024 Assessment & Plan (1) CAD (coronary artery disease): Plan: Acute MI100% mid LADpost 2 JESUS 80% mid LCx. Post staged PCI with additional JESUS 11/28/2024 2. Severe LV dysfunctionEF 25 to 30% with apical akinesis 3. Nonsustained VT 4. Tobacco abuse 5. Hypothyroidism 6. Transaminitisresolved 7. Small pericardial effusion 8. Mild pulmonary hypertension Post successful staged PCI of circumflex today Remains chest pain-free LV filling pressures mildly elevated Blood pressures remain relatively low Plan on medically managing remaining CAD (60% OM, jailed diagonal) Will continue triple therapy while in hospital (ticagrelor, aspirin, anticoagulation). Stop heparin drip, start Eliquis tonight. Continue current metoprolol, Toprol-XL on discharge Start low-dose lisinopril 2.5 mg today Start empagliflozin 10 mg daily Continue current statin With elevated LVEDP If dyspnea recommend diuresis. Likely home with as needed Lasix Okay with transfer to telemetry today Plan on repeat limited echo tomorrow. Will need LifeVest for possible discharge tomorrow. Appreciate ICU and hospital medicine team care. Admission and Anticipated Discharge Date Admission Date: November 26, 2024 Subjective Feeling well this morning. Denies any chest pain. No abdominal pain. Appetite near baseline. Underwent successful PCI of mid circumflex this morning. Review of Systems Review of Systems: All systems reviewed & are unremarkable except as noted in HPI & below Physical Exam Physical Exam: General: Comfortable HEENT: Sclerae anicteric Lungs: Clear to auscultation bilaterally Cardiac: Regular rate and rhythm, no murmurs. Vascular: Right radial artery access site with mild ecchymosis, no hematoma. Distal pulse and sensation intact. Abdomen: Soft, nontender Extremities: Well perfused, no peripheral edema Neuro: Nonfocal Psych: Alert orient x3, normal affect and mood Results & Data Vital Signs (Past 12 Hours) Vital Signs Temp Pulse Pulse Resp BP BP Pulse Ox 11/28/24 10:22 59 L 14 91/72 L 94 11/28/24 10:07 59 L 14 94 11/28/24 08:00 74 18 103/73 97 11/28/24 07:36 57 L 17 95/62 L 96 11/28/24 06:39 64 21 98 11/28/24 06:39 98.1 F 91/55 L 11/28/24 06:39 91/55 L 11/28/24 06:39 91/55 L 11/28/24 06:27 62 20 96 11/28/24 05:37 111/75 11/28/24 05:37 111/75 11/28/24 05:33 63 12 98 11/28/24 05:27 63 20 98 11/28/24 04:37 102/69 11/28/24 04:15 58 L 16 96 11/28/24 04:00 74 11 L 96 11/28/24 03:12 97.7 F 79 25 H 96 11/28/24 02:37 101/73 11/28/24 02:36 73 21 98 11/28/24 02:15 60 21 97 11/28/24 01:37 96/67 L 11/28/24 01:37 96/67 L 11/28/24 01:27 56 L 13 99 11/28/24 01:12 66 17 95 11/28/24 01:04 94/72 L 11/28/24 00:39 59 L 21 96 11/28/24 00:37 102/68 11/28/24 00:37 102/68 11/28/24 00:36 60 20 95 11/28/24 00:30 61 22 95 11/28/24 00:27 56 L 11/28/24 00:00 97.7 F 56 L 18 97 11/27/24 23:45 63 13 98 11/27/24 23:37 95/70 L 11/27/24 23:12 56 L 16 97 11/27/24 23:06 60 19 99 11/27/24 22:37 93/63 L 11/27/24 22:37 93/63 L 11/27/24 22:37 93/63 L 11/27/24 22:36 62 22 98 O2 Del Method 11/28/24 10:22 Room Air 11/28/24 10:07 Room Air 11/28/24 08:00 11/28/24 07:36 11/28/24 06:39 11/28/24 06:39 11/28/24 06:39 11/28/24 06:39 11/28/24 06:27 11/28/24 05:37 11/28/24 05:37 11/28/24 05:33 11/28/24 05:27 11/28/24 04:37 11/28/24 04:15 11/28/24 04:00 11/28/24 03:12 11/28/24 02:37 11/28/24 02:36 11/28/24 02:15 11/28/24 01:37 11/28/24 01:37 11/28/24 01:27 11/28/24 01:12 11/28/24 01:04 11/28/24 00:39 11/28/24 00:37 11/28/24 00:37 11/28/24 00:36 11/28/24 00:30 11/28/24 00:27 11/28/24 00:00 11/27/24 23:45 11/27/24 23:37 11/27/24 23:12 11/27/24 23:06 11/27/24 22:37 11/27/24 22:37 11/27/24 22:37 11/27/24 22:36 PG Care Time/CCT Total # of Minutes Spent Total Time Spent with Patient: Total time spent is greater than 50% in coordination of care (as documented) at patient's floor/unit and/or counseling patient: Coding Level of Care Code 42760 SUB INP/OBS CARE 3/50MIN Diagnoses CAD (coronary artery disease) I25.10
[2024-11-28] MEDS: EMPAGLIFLOZIN 10 MG TAB PO SCH (11:41)
[2024-11-28] MEDS: lisinopril 2.5 MG TAB PO SCH (11:41)
--- NOTE | 2024-11-28 14:16 | Electrocardiogram Report ---
Test Reason : Blood Pressure : */* mmHG Vent. Rate : 54 BPM Atrial Rate : 54 BPM P-R Int : 162 ms QRS Dur : 98 ms QT Int : 516 ms P-R-T Axes : 82 -75 256 degrees QTcB Int : 489 ms Poor data quality, interpretation may be adversely affected Sinus bradycardia Left axis deviation Low voltage QRS Inferior infarct , possibly acute Anterior infarct , possibly acute ACUTE [place] / STEMI Abnormal ECG When compared with ECG of 27-Nov-2024 01:37, Significant changes have occurred Confirmed by Mau Hernández ([id number]) on 11/28/2024 2:15:42 PM Referred By: NO PCP Confirmed By: Mau Hernández
[2024-11-28] MEDS: APIXABAN 5 MG TABLET PO SCH (20:08)
[2024-11-28] MEDS ORDERED: NITROGLYCERIN SL 0.4 MG/TAB TAB SL PRN (22:56)
[2024-11-28] MEDS: METOPROLOL TARTRATE 25 MG TAB PO STA (23:46)
[2024-11-29] LABS: BUN Creatinine Ratio 24.5 (10-20); Calcium 8.8 mg/dl (8.6-10.3); Magnesium 2.2 mg/dl (1.7-2.4); Potassium 4.4 mmol/L (3.5-5.1)
--- NOTE | 2024-11-29 04:18 | Communication Note ---
Date of Service: November 29, 2024 Was notified by nursing that patient appeared to be in a junctional rhythm on telemetry, no p waves visible. I ordered an EKG which was obtained, automatic read was anteroseptal infarct, acute ME/STEMI. Patient reported to nurse he was having some mild left sided epigastric pain. I went to bedside, patient in no acute distress- CV- regular rate and rhythm on auscultation, no abdominal pain on exam. Patient reports that he thinks it was just some discomfort after eating, is resolved. I contacted the on-call cardiology laboratory chemist physician, I shared the images of the EKG and tele strips. On-call physician advised that the tele monitor was showing accelerated idioventricular rhythm which can happen with ME. Electrolytes were checked, mag and K at goal. Recommended to maximize beta-bhupinder, additional 12.5 of metoprolol was administered. Encouraged patient contact nurse with any changes in symptoms. Resident Activity Tracking Resident Involvement: Resident Care Provided Care Provided: Adult Hospital Medicine
[2024-11-29 07:39] LABS: Basophils # (auto) 0.07 K/uL (0.00-0.20); Basophils % (auto) 0.7 %; Eosinophils # (auto) 0.18 K/uL (0.00-0.50); Eosinophils % (auto) 1.8 %; Hematocrit (blood only) 35.6 % (42.0-52.0); Hemoglobin 11.9 g/dl (14.0-18.0); Immature Granulocytes # (auto) 0.05 K/uL (0.01-0.20); Immature Granulocytes % (auto) 0.5 %; Lymphocytes # (auto) 1.96 K/uL (1.20-3.40); Lymphocytes % (auto) 19.7 %; Mean Corpuscular Hemoglobin 28.9 pg (25.0-34.0); Mean Corpuscular Hgb Conc 33.4 g/dL (32.0-36.0); Mean Corpuscular Volume 86.4 fL (80.0-100.0); Mean Platelet Volume 9.5 fL (9.4-12.4); Monocytes # (auto) 0.78 K/uL (0.11-0.59); Monocytes % (auto) 7.9 %; Neutrophils # (auto) 6.89 K/uL (1.40-6.50); Neutrophils % (auto) 69.4 %; Platelet Count 227 K/uL (130-400); RDW Coefficient of Variation 14.5 % (11.5-14.5); RDW Standard Deviation 46.5 fL (36.4-46.3); Red Blood Count 4.12 M/uL (4.70-6.10); White Blood Count 9.93 K/ul (4.8-10.8)
[2024-11-29 07:55] LABS: Partial Thromboplastin Time 27 Seconds (21-31); Prothrombin Time 10.9 Seconds (9.0-12.0)
[2024-11-29 07:59] LABS: Albumin Globulin Ratio 1.3 (0.9-2); Albumin Level 3.6 gm/dl (3.4-5.0); Bilirubin,Total 0.6 mg/dl (0.2-1.0); Calcium 8.7 mg/dl (8.6-10.3); Creatinine Clr Calc Pharmacy 37.2 ml/min; Globulin 2.8 gm/dl (2.5-4.0); Magnesium 2.3 mg/dl (1.7-2.4); Total Protein 6.4 gm/dl (6.0-8.3)
--- NOTE | 2024-11-29 13:27 | Electrocardiogram Report ---
Test Reason : Blood Pressure : */* mmHG Vent. Rate : 67 BPM Atrial Rate : 67 BPM P-R Int : 154 ms QRS Dur : 72 ms QT Int : 458 ms P-R-T Axes : 75 -56 108 degrees QTcB Int : 483 ms Normal sinus rhythm Left axis deviation Low voltage QRS Inferior infarct , age undetermined Anterior infarct ACUTE [place] / STEMI Abnormal ECG When compared with ECG of 28-Nov-2024 10:36, Significant changes have occurred Confirmed by Mau Hernández ([id number]) on 11/29/2024 1:27:07 PM Referred By: NO PCP Confirmed By: Mau Hernández
--- NOTE | 2024-11-29 15:55 | Cardiology Progress Note ---
Date of Service November 29, 2024 Assessment & Plan (1) CAD (coronary artery disease): Plan: Acute MI100% mid LADpost 2 JESUS 80% mid LCx. Post staged PCI with additional JESUS 11/28/2024 60% OM, jailed diagonalmedical management 2. Severe LV dysfunctionEF 25 to 30% with apical akinesis. LifeVest in place 3. Nonsustained VT/AIVR 4. Tobacco abuse 5. Hypothyroidism 6. Transaminitisresolved 7. Small pericardial effusionresolved on repeat echo 8. Mild pulmonary hypertension 9. Mild TYRESE Remains chest pain-free. Blood pressure is borderline in the 80s to 90s but asymptomatic. Periods of brief NSVT and accelerated idioventricular rhythm on telemetry, again asymptomatic. Plan to monitor on telemetry overnight with target discharge tomorrow morning if BP stable, no significant ventricular ectopy. Home on dual therapy with ticagrelor, Eliquis GDMT with Toprol-XL 25 mg daily, empagliflozin. Unable to tolerate EVA, MRA due to low BP, TYRESE, borderline potassium. Continue current statin Monitor daily weights. Lasix 20 mg as needed as needed for weight gain >2 pounds in a day. Discharged with LifeVest. Repeat echo to assess LV function 1 month Follow-up with me in 1 week Appreciate hospital medicine team care. Admission and Anticipated Discharge Date Admission Date: November 26, 2024 Subjective Feeling well today. Denies any chest pain. Blood pressure is borderline in the 80s to 90s with no associated symptoms. States has been up walking to the bathroom without dizziness/lightheadedness. Telemetry reviewedbrief NSVT. Periods of accelerated idioventricular rhythm yesterday evening. Per report had some mild epigastric discomfort at that time. Reviewed repeat echocardiogram today. LV function unchanged. Still with apical akinesis and signs of stagnant apical blood flow (smoke). Review of Systems Review of Systems: All systems reviewed & are unremarkable except as noted in HPI & below Physical Exam Physical Exam: General: Comfortable HEENT: Sclerae anicteric Lungs: Clear to auscultation bilaterally Cardiac: Regular rate and rhythm, no murmurs. Vascular: Right radial artery access site with mild ecchymosis, no hematoma. Distal pulse and sensation intact. Abdomen: Soft, nontender Extremities: Well perfused, no peripheral edema Neuro: Nonfocal Psych: Alert orient x3, normal affect and mood Results & Data Vital Signs (Past 12 Hours) Vital Signs Temp Pulse Pulse Resp BP BP Pulse Ox 11/29/24 15:51 97.2 F L 77 19 109/71 96 11/29/24 14:00 72 11/29/24 12:16 97.5 F L 70 18 92/64 L 93 11/29/24 10:00 86/58 L 84/58 L 11/29/24 09:30 76/48 L 84/56 L 11/29/24 07:46 97.5 F L 70 20 91/57 L 93 11/29/24 07:00 O2 Del Method 11/29/24 15:51 Room Air 11/29/24 14:00 11/29/24 12:16 Room Air 11/29/24 10:00 11/29/24 09:30 11/29/24 07:46 Room Air 11/29/24 07:00 Room Air PG Care Time/CCT Total # of Minutes Spent Total Time Spent with Patient: Total time spent is greater than 50% in coordination of care (as documented) at patient's floor/unit and/or counseling patient: Coding Level of Care Code 71034 SUB INP/OBS CARE 3/50MIN Diagnoses CAD (coronary artery disease) I25.10
--- NOTE | 2024-11-29 18:11 | Hospitalist Progress Note ---
Date of Service November 29, 2024 Assessment & Plan (1) Tobacco use disorder, severe, dependence: (2) Hypothyroidism (acquired): (3) Elevated troponin: (4) STEMI (ST elevation myocardial infarction): Plan The patient is a 74-year-old male with past medical history significant for 1-1 /2 pack/day smoking, and has not been involved with medical care for the past 12 years. He presents to the emergency department with symptoms of an episode of nausea with dry heaves, lightheadedness, and had an unwitnessed fall. Upon presentation to the emergency department initial workup included an EKG, which showed STEMI involving inferior and lateral chest leads. He was given aspirin 324 mg, metoprolol tartrate 12.5 mg, and heart alert was called at that time. He was then taken to the cardiac catheterization lab by Dr. Vicente Woods, interventional cardiology, with separate report to follow #STEMI #Severe LV dysfunction #Nonsustained VTach - medsurge tele - initial trop 108.3, peaked to > 200k (in the setting of intervention) but now downtrending - ECHO showing EF: 25-30%, apical akinesis, mid anterior / anteroseptal / septal akinesis, severely hypokinetic mid inferior / lateral segments, BNP 196, HA1c: 5.7 - cards on board, s/p 2 stents to mid LAD occlusion - s/p stent to mid circ lesion on 11/28/24 - rpt ECHO unchanged - s/p aspirin 324mg in the ED, cont brilinta, asp discontinued - cont metoprolol tartrate 12.5mg BID (XL 25mg daily starting tomorrow), and lisinopril 2.5mg discontinued due to hypotension - started on Empagliflozin - fasting lipid panel reviewed, cont atorvastatin 80mg daily - Eliquis by cardiology for severe LV dysfunction and increased risk of LV thrombus - pt fitted for lifevest #Syncopal episode - CT brain w/o contrast unremarkable - CT C-spine showed reversal of normal lordosis, hypertrophic degenerative changes, mild multilevel disc protrusions - CTA PE neg for PE #Abnormal AST / ALT - improving - normal on admission - hep C ab negative - like in the setting of STEMI - trending down #Tobacco use d/o #COPD with emphysema #Pulmonary nodule - currently 1/2 ppd smoker - nicoderm patch - pulm on board, recs Stiolto or Anoro on discharge , PFTs as outpatient - repeat CT chest in 3 months for pulm nodule eval #Hypothyroidism - TSH 10.959 - follow up as outpatient Dispo: potential d/c on 11/30 1: and children at bedside 11/29: and son at bedside Admission and Anticipated Discharge Date Admission Date: November 26, 2024 Subjective During the day, he had SBP in the 80s without symptoms Review of Systems Review of Systems: Comprehensive ROS neg Physical Exam Physical Exam: Gen: NAD, lying in bed comfortable HEENT: wound on the nose healing, MMM CVS: s1s2nl, RRR Lungs: CTAB Abd: soft, NT, nl BS Ext: no edema Results & Data Results & Data Vital Signs (Past 12 Hours) Vital Signs Temp Pulse Pulse Resp BP BP Pulse Ox 11/29/24 15:51 36.2 C L 77 19 109/71 96 11/29/24 14:00 72 11/29/24 12:16 36.4 C L 70 18 92/64 L 93 11/29/24 10:00 86/58 L 84/58 L 11/29/24 09:30 76/48 L 84/56 L 11/29/24 07:46 36.4 C L 70 20 91/57 L 93 11/29/24 07:00 O2 Del Method 11/29/24 15:51 Room Air 11/29/24 14:00 11/29/24 12:16 Room Air 11/29/24 10:00 11/29/24 09:30 11/29/24 07:46 Room Air 11/29/24 07:00 Room Air PG Care Time/CCT Total # of Minutes Spent Total Time Spent with Patient: Total time spent is greater than 50% in coordination of care (as documented) at patient's floor/unit and/or counseling patient: Coding Level of Care Code 05666 SUB INP/OBS CARE 3/50MIN Diagnoses Tobacco use disorder, severe, dependence F17.200 Hypothyroidism (acquired) E03.9 Elevated troponin R79.89 STEMI (ST elevation myocardial infarction) I21.02 Involved coronary artery: LAD coronary artery (4) STEMI (ST elevation myocardial infarction) Involved coronary artery: LAD coronary artery Qualified Code(s): I21.02 - ST elevation (STEMI) myocardial infarction involving left anterior descending coronary artery
--- NOTE | 2024-11-29 23:20 | XCELERA ---
[id number]
[2024-11-30 07:15] VITALS: RESP 18
[2024-11-30] MEDS: METOPROLOL SUCC 25MG EXT REL TAB PO SCH (09:24)
[2024-11-30 11:19] VITALS: PULSE 73; TEMP 97.6; O2SAT 94
--- NOTE | 2024-11-30 12:47 | Discharge Summary ---
Discharge Summary Date of Service November 30, 2024 Principal Dx & Hospital Course #1 = Principal Diagnosis (1) Tobacco use disorder, severe, dependence: (2) Hypothyroidism (acquired): (3) Elevated troponin: (4) STEMI (ST elevation myocardial infarction): Plan The patient is a 74-year-old male with past medical history significant for 1- 1/2 pack/day smoking, and has not been involved with medical care for the past 12 years. He presents to the emergency department with symptoms of an episode of nausea with dry heaves, lightheadedness, and had an unwitnessed fall. Upon presentation to the emergency department initial workup included an EKG, which showed STEMI involving inferior and lateral chest leads. He was given aspirin 324 mg, metoprolol tartrate 12.5 mg, and heart alert was called at that time. He was then taken to the cardiac catheterization lab by Dr. Vicente Woods, interventional cardiology, with separate report to follow #STEMI #Severe LV dysfunction #Nonsustained VTach - medsurge tele - initial trop 108.3, peaked to > 200k (in the setting of intervention) but now downtrending - ECHO showing EF: 25-30%, apical akinesis, mid anterior / anteroseptal / septal akinesis, severely hypokinetic mid inferior / lateral segments, BNP 196, HA1c: 5.7 - cards on board, s/p 2 stents to mid LAD occlusion - s/p stent to mid circ lesion on 11/28/24 - rpt ECHO unchanged - discharge on brilinta, metoprolol xl 25mg daily, empagliflozin, atorvastatin - Eliquis by cardiology for severe LV dysfunction and increased risk of LV thrombus - pt fitted for lifevest #Syncopal episode - CT brain w/o contrast unremarkable - CT C-spine showed reversal of normal lordosis, hypertrophic degenerative changes, mild multilevel disc protrusions - CTA PE neg for PE #Abnormal AST / ALT - improving - normal on admission - hep C ab negative - like in the setting of STEMI - trending down #Tobacco use d/o #COPD with emphysema #Pulmonary nodule - currently 1/2 ppd smoker - nicoderm patch - pulm on board, recs Stiolto or Anoro on discharge , PFTs as outpatient - repeat CT chest in 3 months for pulm nodule eval #Hypothyroidism - TSH 10.959 - follow up as outpatient Dispo: potential d/c on 11/30 1: and children at bedside 11/29: and son at bedside Admission HPI Per Admitting Provider The patient is a 74-year-old male with past medical history significant for 1- 1/2 pack/day smoking, and has not been involved with medical care for the past 12 years. He presents to the emergency department with symptoms of an episode o f nausea with dry heaves, lightheadedness, and had an unwitnessed fall. Upon presentation to the emergency department initial workup included an EKG, which showed STEMI involving inferior and lateral chest leads. He was given aspirin 324 mg, metoprolol tartrate 12.5 mg, and heart alert was called at that time. He was then taken to the cardiac catheterization lab by Dr. Vicente Woods, interventional cardiology, with separate report to follow Discharge Plan Discharge Items Patient Disposition: Home - Self-Care Reason For Visit: STEMI Discharge Diagnosis: STEMI Activity: As commented below Activity Comment: very minimal activity until cleared by cardiology Lifting: No more than 5 pounds Non-emergency contact: Graduate Student Instructor Call non-emergency contact if: you have any medication questions and your symptoms worsen Follow-up/Referrals: Chris Howell, [Primary Care Provider] - Diet: Heart Healthy and Low Sodium (2gm) Addtl Attending Provider Instructions: 1. Follow up with Dr. Vicente Woods (cardiology) within one week 2. Do not return to work until cleared by cardiology 3. <2g of salt to prevent water retention in your body 4. Weigh daily in the morning on empty bladder and minimal to no clothing 5. If chest pain or shortness of breath develops, return to hospital 6. Maintain LifeVest as instructed 7. Monitor your blood pressure daily 8. 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 Quit smoking Pending Studies at Discharge: No Stand-Alone Forms: My [facility], Smoking Cessation Medications and DC Order Prescriptions: New nicotine [Nicoderm CQ] 21 mg/24 hr Patch 24 Hour 1 patch transdermal QAM Qty: 28 0RF Stiolto Respimat 2.5-2.5 mcg/actuation mist 2 puff inhalation DAILY Qty: 4 0RF atorvastatin 40 mg Tablet 80 mg PO QAM Qty: 30 0RF pantoprazole 40 mg Tablet,Delayed Release (Dr/Ec) 40 mg PO QAM Qty: 30 0RF nitroglycerin [Nitrostat] 0.4 mg Tablet, Sublingual 0.4 mg sublingual Q5M PRN (Reason: chest pain) Qty: 30 0RF metoprolol succinate 25 mg Tablet Extended Release 24 Hr 25 mg PO QAM Qty: 30 0RF Brilinta 90 mg Tablet 90 mg PO BID Qty: 60 0RF Eliquis 5 mg Tablet 5 mg PO BID Qty: 60 0RF Jardiance 10 mg Tablet 10 mg PO DAILY Qty: 30 0RF Continued .Prevagen 1 tab PO DAILY Discontinued naproxen sodium 220 mg Tablet 220 mg PO BID PRN (Reason: Pain) Admission Data Admit Date/Time: 11/26/24 23:05 Attending Provider: Joellen Le Admit Provider: Mejia Anthony Primary Care Provider: Chris Howell Other Providers: Mejia Anthony; Raleigh Guo; Daniel Kerns; Cam Barker; Mau Hernández; Rafael Thompson; Adonis Jenkins; Orlando Centeno Jr; Jose Alicea; Monica Rocha; Bianka Raza; Vicente Woods; Vicente Mota; Sanjeev Yanez; Silvia Cabrera; Prince Parra; Sunshine Zeng; Fadi Brown; Prince Whitten; Jones Lopes; Estiven Marinelli Hospital Stay Data Consultations 11/26/24 23:07 ED Decision to Admit Stat 11/27/24 00:59 Consult Senior Mainframe Developer Routine 11/27/24 19:25 Consult Cardiology Routine Procedures Performed Operation Date: 11/28/24 10:30 Actual Procedures p Cineradiography w/Routine Exam - Vicente Woods MD p Drug Eluting Stent SGl Vessel - Vicente Woods MD Diagnostic Imagining Performed 11/26/24 22:24 CT cervical spine wo con Stat CT head/brain wo con Stat 11/26/24 22:33 CT angio chest dissec wo/w con Stat 11/26/24 22:49 CL Cath Imgs for PACS use only Stat 11/28/24 08:48 CL Cath Imgs for PACS use only Routine Discharge Instructions Given to Patient (Per Discharging Provider) 1. Follow up with Dr. Vicente Woods (cardiology) within one week 2. Do not return to work until cleared by cardiology 3. <2g of salt to prevent water retention in your body 4. Weigh daily in the morning on empty bladder and minimal to no clothing 5. If chest pain or shortness of breath develops, return to hospital 6. Maintain LifeVest as instructed 7. Monitor your blood pressure daily 8. 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 Quit smoking Total Time Total Time Spent Total Time Spent (In Minutes): 50 Coding Level of Care Code 16217 INP/OBS DISCH >30 MIN Diagnoses Tobacco use disorder, severe, dependence F17.200 Hypothyroidism (acquired) E03.9 Elevated troponin R79.89 STEMI (ST elevation myocardial infarction) I21.02 Involved coronary artery: LAD coronary artery
[2024-11-30 13:07] VITALS: BP 101/68
[2024-11-30] MEDS ORDERED: TICAGRELOR 90 MG HOME PACK PO SCH (13:41)
[2024-11-30] MEDS ORDERED: TICAGRELOR 90 MG HOME PACK PO STA (13:41)
[2024-11-30] MEDS ORDERED: APIXABAN 5 MG TABLET PO SCH ×2 (13:45→21:00)
[2024-11-30] MEDS ORDERED: TICAGRELOR 90 MG TAB PO SCH (21:00)
--- NOTE | 2024-11-30 21:22 | Cardiology Progress Note ---
Date of Service November 30, 2024 Assessment & Plan (1) CAD (coronary artery disease): Plan: Acute MI100% mid LADpost 2 JESUS 80% mid LCx. Post staged PCI with additional JESUS 11/28/2024 60% OM, jailed diagonalmedical management 2. Severe LV dysfunctionEF 25 to 30% with apical akinesis. LifeVest in place 3. Nonsustained VT/AIVR 4. Tobacco abuse 5. Hypothyroidism 6. Transaminitisresolved 7. Small pericardial effusionresolved on repeat echo 8. Mild pulmonary hypertension 9. Mild TYRESE Remains chest pain-free. Blood pressure stable Electrically stable. From a cardiac standpoint okay with discharge today. Home on dual therapy with ticagrelor, Eliquis GDMT with Toprol-XL 25 mg daily, empagliflozin. Unable to tolerate EVA, MRA due to low BP, TYRESE, borderline potassium. Will try to restart as an outpatient. Continue current statin Monitor daily weights. Lasix 20 mg as needed as needed for weight gain >2 pounds in a day. Discharged with LifeVest. Repeat echo to assess LV function 1 month Follow-up with me in 1 week Appreciate hospital medicine team care. Admission and Anticipated Discharge Date Admission Date: November 26, 2024 Subjective Feeling well today. No new concerns. Electrically stable overnight. No hypotension today. Review of Systems Review of Systems: All systems reviewed & are unremarkable except as noted in HPI & below Physical Exam Physical Exam: General: Comfortable HEENT: Sclerae anicteric Lungs: LifeVest in place. Clear to auscultation bilaterally Cardiac: Regular rate and rhythm, no murmurs. Vascular: Right radial artery access site with mild ecchymosis, no hematoma. Distal pulse and sensation intact. Abdomen: Soft, nontender Extremities: Well perfused, no peripheral edema Neuro: Nonfocal Psych: Alert orient x3, normal affect and mood Results & Data Vital Signs (Past 12 Hours) Vital Signs Temp Pulse Pulse Resp BP BP Pulse Ox 11/30/24 13:59 97.6 F 73 18 101/68 94 11/30/24 13:03 97.6 F 73 18 101/68 94 11/30/24 11:17 97.6 F 73 18 90/54 L 94 11/30/24 10:49 66 O2 Del Method 11/30/24 13:59 11/30/24 13:03 11/30/24 11:17 Room Air 11/30/24 10:49 PG Care Time/CCT Total # of Minutes Spent Total Time Spent with Patient: Total time spent is greater than 50% in coordination of care (as documented) at patient's floor/unit and/or counseling patient: Coding Level of Care Code 89213 SUB INP/OBS CARE 2/35MIN Diagnoses CAD (coronary artery disease) I25.10
== END 2024-11-30 15:03 | disposition home or self-care (01) | DRG 322 ==
LOC: ED 22:10 → 1E 23:05 → SUATTDRO 23:05 → 2S 11-28 21:21

== ENCOUNTER 2024-12-15 21:25 | Inpatient (IN) ==
[2024-12-15 21:53] LABS: Basophils % (auto) 0.8 %; Eosinophils # (auto) 0.15 K/uL (0.00-0.50); Eosinophils % (auto) 1.2 %; Hematocrit (blood only) 34.9 % (42.0-52.0); Hemoglobin 11.9 g/dl (14.0-18.0); Immature Granulocytes # (auto) 0.07 K/uL (0.01-0.20); Immature Granulocytes % (auto) 0.5 %; Lymphocytes # (auto) 1.71 K/uL (1.20-3.40); Lymphocytes % (auto) 13.3 %; Mean Corpuscular Hemoglobin 29.5 pg (25.0-34.0); Mean Corpuscular Hgb Conc 34.1 g/dL (32.0-36.0); Mean Corpuscular Volume 86.4 fL (80.0-100.0); Mean Platelet Volume 9.3 fL (9.4-12.4); Monocytes # (auto) 0.54 K/uL (0.11-0.59); Monocytes % (auto) 4.2 %; Neutrophils # (auto) 10.33 K/uL (1.40-6.50); Platelet Count 354 K/uL (130-400); RDW Coefficient of Variation 14.7 % (11.5-14.5); RDW Standard Deviation 46.5 fL (36.4-46.3); Red Blood Count 4.04 M/uL (4.70-6.10)
[2024-12-15 22:11] LABS: Albumin Globulin Ratio 1.4 (0.9-2); Albumin Level 4.1 gm/dl (3.4-5.0); BUN Creatinine Ratio 12.4 (10-20); Bilirubin,Total 0.4 mg/dl (0.2-1.0); Calcium 9.1 mg/dl (8.6-10.3); Creatinine Clr Calc Pharmacy 31.7 ml/min; Magnesium 2.1 mg/dl (1.7-2.4); Potassium 4.1 mmol/L (3.5-5.1); Total Protein 7.1 gm/dl (6.0-8.3)
[2024-12-15 22:20] LABS: Troponin I High Sensitivity 109.9 pg/ml (0-20)
[2024-12-15 22:27] LABS: Thyroid Stimulating Hormone 2.847 uIu/ml (0.300-4.500)
[2024-12-15 22:35] LABS: Partial Thromboplastin Time 28 Seconds (21-31); Prothrombin Time 11.2 Seconds (9.0-12.0)
--- NOTE | 2024-12-15 22:46 | Emergency Department Note ---
Impression & Plan V tach, Uses LifeVest defibrillator, History of CAD (coronary artery disease) ED Provider Note Provider: Sergio Zavala MD CHIEF COMPLAINT: LifeVest fired x 2 HISTORY OF PRESENT ILLNESS: Patient is a 74-year-old gentleman history of recent STEMI reduced EF as well as a history of COPD presenting here today referred by cardiology. Patient had a STEMI on [place] and 2 stent placements. Patient had a reduced EF and went home with a LifeVest. Has been doing quite well. 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 States it did hurt them but no other chest pain. Patient then recovered and finish the tow assignments. Talked with his doctor and came here for further evaluation. He did upload his ZOLL LifeVest to the [email or web address]. Was not again under significant exertion driving when this happened. Does states that the device has buzzed over the last week occasionally when has been exerting myself a bit but has never shocked him before tonight. PAST MEDICAL HISTORY: As noted above MEDICATIONS: Reviewed home medications and states compliance SOCIAL HISTORY: PHYSICAL EXAM: GENERAL: alert and oriented in no acute distress on stretcher Head: normocephalic and atraumatic EYES: No injection, discharge or icterus. NECK: Trachea midline. ENT: Mucous membranes pink and moist. LUNGS: Airway patent. No retractions or tachypnea HEART: Regular rate and rhythm. LifeVest system in place. ABDOMEN: Soft and non-tender, without guarding or rebound. SKIN: Acyanotic, warm, dry, without rashes EXTREMITIES: Without swelling, tenderness or deformity NEUROLOGICAL: No focal deficits. No aphasia. No facial droop or slurred speech. Ambulatory. EK beats. Normal sinus rhythm. No PVC. No acute ST segment elevation with some lateral T wave inversions. Left axis and QTc of 495 CONTINUOUS CARDIAC MONITORING: was ordered and showed a heart rate of 70s to 80s bpm in normal sinus rhythm occasional PVC Patient's laboratory studies and imaging reviewed. Differential includes Cardiac ischemia, aortic dissection, pulmonary embolism, pneumothorax, pneumonia, pericarditis, myocarditis, esophageal rupture, GERD, cholecystitis, pancreatitis, musculoskeletal, as well as other pathologies. IMPRESSION/MEDICAL DECISION MAKING: Patient with from the ZOLL device appear to have episode of prolonged V. tach. Terminated after 2 shocks with the device. Sent here by cardiology. They recommended telemetry overnight and evaluation in the morning to determine if antiarrhythmics or more permanent device is indicated. Patient here without significant chest pain or complaint at this time. Troponin mildly elevated but could still be downtrending will need to follow. No significant electrolyte abnormality noted. Creatinine 1.7 not far off what looks like a recent baseline of 1.4-1.5. Denies other recent illness. States compliance with his home medication. Per cardiology recommendation telemetry evaluation tomorrow, discussed with the hospitalist for further care here. DIAGNOSIS: V. tach, LifeVest defibrillation, history of CAD and reduced EF DISPOSITION: Hospitalist will evaluate Patient was agreeable with this plan. Past Med/Surg History Problem List (Updated 12/15/24 @ 22:51 by Sergio Zavala M.D.) History of CAD (coronary artery disease) (Acute) Uses LifeVest defibrillator (Acute) V tach (Acute) CAD (coronary artery disease) COPD with emphysema NSVT (nonsustained ventricular tachycardia) Transaminitis Pulmonary nodule Elevated troponin Hypothyroidism (acquired) Tobacco use disorder, severe, dependence (Acute) STEMI (ST elevation myocardial infarction) (Acute) Social History Smoking Status: Current every day smoker Tobacco Type: Cigarettes Cigarettes Per Day: 30; Do You Dip or Chew Tobacco: No; Hx Alcohol Use: Yes Hx Substance Use: No Preferred Language: Ugandan Communication Ability: Effective Software Tester Required: No Beliefs That Will Affect Care: None Current Living Situation: Spouse Feels Safe at Home: Yes Assistive Devices: None Allergies Allergies Allergy/AdvReac Type Severity Reaction Status Date / Time No Known Allergies Allergy Unverified 12/09/24 15:31 Home Meds Home Medications Medication Instructions Recorded Confirmed .Prevagen 1 tab PO DAILY 11/27/24 12/15/24 Stiolto Respimat 2 puff DAILY 12/15/24 12/15/24 Previous Rx's Medication Instructions Recorded nitroglycerin 0.4 mg sublingual 0.4 mg sublingual Q5M PRN chest 11/30/24 tablet (Nitrostat) pain #30 tabs apixaban 5 mg tablet (Eliquis) 5 mg PO BID #180 tabs 12/09/24 atorvastatin 80 mg tablet 80 mg PO DAILY #90 tabs 12/09/24 empagliflozin 10 mg tablet 10 mg PO DAILY #90 tabs 12/09/24 (Jardiance) losartan 25 mg tablet 12.5 mg (1/2 x 25 mg) PO DAILY #30 12/09/24 tabs metoprolol succinate 25 mg 25 mg PO QAM #90 tabs 12/09/24 tablet,extended release 24 hr pantoprazole 40 mg tablet,delayed 40 mg PO QAM #30 tabs 12/09/24 release ticagrelor 90 mg tablet (Brilinta) 90 mg PO BID #180 tabs 12/09/24 Results & Data (ED) Vital Signs Vital Signs - 24 hr 12/15/24 21:25 12/15/24 21:26 12/15/24 21:40 Temperature 36.4 C L Temperature Source Temporal Artery Scan Pulse Rate 99 H 83 Pulse Rate [Apical] Pulse Rhythm [Apical] Pulse Strength [Apical] Respiratory Rate 18 Respiratory Effort / Characteristics Non-Labored Spontaneous Respiratory Depth Normal Respiratory Pattern Blood Pressure 100/66 Blood Pressure [Right Arm] Blood Pressure Mean 77 Blood Pressure Mean [Right Arm] Blood Pressure Position Sitting Blood Pressure Position [Right Arm] Pulse Oximetry 98 95 Oxygen Delivery Method Room Air Room Air Sepsis Recent Fever Within 48 Hours No Sepsis New/Unexplained Change in Mental Status No Sepsis Action Taken by Nursing No Action Required 12/15/24 22:02 Temperature Temperature Source Pulse Rate Pulse Rate [Apical] 83 Pulse Rhythm [Apical] Regular Pulse Strength [Apical] Normal Respiratory Rate 18 Respiratory Effort / Characteristics Non-Labored Respiratory Depth Normal Respiratory Pattern Regular Blood Pressure Blood Pressure [Right Arm] 94/66 L Blood Pressure Mean Blood Pressure Mean [Right Arm] 75 Blood Pressure Position Blood Pressure Position [Right Arm] Sitting Pulse Oximetry 98 Oxygen Delivery Method Room Air Sepsis Recent Fever Within 48 Hours Sepsis New/Unexplained Change in Mental Status Sepsis Action Taken by Nursing Laboratory Data 12/15/24 21:40 12/15/24 21:40 Lab Results 12/15/24 Range/Units 21:40 WBC 12.90 H (4.8-10.8) K/ul RBC 4.04 L (4.70-6.10) M/uL Hgb 11.9 L (14.0-18.0) g/dl Hct 34.9 L (42.0-52.0) % MCV 86.4 (80.0-100.0) fL MCH 29.5 (25.0-34.0) pg MCHC 34.1 (32.0-36.0) g/dL RDW Std Deviation 46.5 H (36.4-46.3) fL RDW Coeff of Roseanne 14.7 H (11.5-14.5) % Plt Count 354 (130-400) K/uL MPV 9.3 L (9.4-12.4) fL Immature Gran % (Auto) 0.5 % Neut % (Auto) 80.0 % Lymph % (Auto) 13.3 % [place] % (Auto) 4.2 % Eos % (Auto) 1.2 % Baso % (Auto) 0.8 % Neut # (Auto) 10.33 H (1.40-6.50) K/uL Lymph # (Auto) 1.71 (1.20-3.40) K/uL [place] # (Auto) 0.54 (0.11-0.59) K/uL Eos # (Auto) 0.15 (0.00-0.50) K/uL Baso # (Auto) 0.10 (0.00-0.20) K/uL Immature Gran # (Auto) 0.07 (0.01-0.20) K/uL PT 11.2 (9.0-12.0) Seconds INR 1.0 (0.9-1.1) APTT 28 (21-31) Seconds PTT Ratio 1.0 Sodium 137 (136-145) mmol/L Potassium 4.1 (3.5-5.1) mmol/L Chloride 109 H (98-107) mmol/L Carbon Dioxide 22 (21-32) mmol/L Anion Gap 6 (3-11) BUN 22 (6-23) mg/dl Creatinine 1.78 H (0.6-1.4) mg/dl Est Cr Clr Drug Dosing 31.7 ml/min eGFR 39.54 BUN/Creatinine Ratio 12.4 (10-20) Glucose 103 H (70-99(Fasting)) mg/dl Calcium 9.1 (8.6-10.3) mg/dl Magnesium 2.1 (1.7-2.4) mg/dl Total Bilirubin 0.4 (0.2-1.0) mg/dl AST 16 (13-39) U/L ALT 14 (7-52) U/L Alkaline Phosphatase 66 (34-104) U/L Troponin I High Sens 109.9 H* (0-20) pg/ml Total Protein 7.1 (6.0-8.3) gm/dl Albumin 4.1 (3.4-5.0) gm/dl Globulin 3.0 (2.5-4.0) gm/dl Albumin/Globulin Ratio 1.4 (0.9-2) TSH 2.847 (0.300-4.500) uIu/ml Discharge Plan Visit Data Chief Complaint: Cardiac Assessment Stated Complaint: LIFE VEST WENT OFF SENT BY PCP ED Provider: Sergio Zavala Discharge Problem: V tach, Uses LifeVest defibrillator, History of CAD (coronary artery disease) Patient Disposition: Being Evaluated by Hospitalist Forms Stand Alone Forms: My [facility] [place] [facility] Prescriptions Prescriptions: No Action Eliquis 5 mg tablet 5 mg PO BID Qty: 180 3RF atorvastatin 80 mg tablet 80 mg PO DAILY Qty: 90 3RF Jardiance 10 mg tablet 10 mg PO DAILY Qty: 90 3RF metoprolol succinate 25 mg tablet extended release 24 hr 25 mg PO QAM Qty: 90 3RF Brilinta 90 mg tablet 90 mg PO BID Qty: 180 3RF pantoprazole 40 mg tablet,delayed release (DR/EC) 40 mg PO QAM Qty: 30 6RF losartan 25 mg tablet 12.5 mg PO DAILY Qty: 30 6RF .Prevagen 1 tab PO DAILY nitroglycerin [Nitrostat] 0.4 mg Tablet, Sublingual 0.4 mg sublingual Q5M PRN (Reason: chest pain) Qty: 30 0RF Stiolto Respimat inhaler 2 puff DAILY Referrals Referrals: Chris Howell DO [Primary Care Provider] -
[2024-12-15 23:39] LABS: Adenovirus PCR Not Detected (NotDetected); Bordetella parapertussis PCR Not Detected (NotDetected); Bordetella pertussis PCR Not Detected (NotDetected); Chlamydia pneumoniae PCR Not Detected (NotDetected); Coronavirus 229E PCR Not Detected (NotDetected); Coronavirus CoV-2 (COVID19)PCR Not Detected (NotDetected); Coronavirus HKU1 PCR Not Detected (NotDetected); Coronavirus NL63 PCR Not Detected (NotDetected); Coronavirus OC43PCR Not Detected (NotDetected); Human Metapneumovirus PCR Not Detected (NotDetected); Influenza A PCR Not Detected (NotDetected); Influenza B PCR Not Detected (NotDetected); Mycoplasma pneumoniae PCR Not Detected (NotDetected); Parainfluenza Virus 1 PCR Not Detected (NotDetected); Parainfluenza Virus 2 PCR Not Detected (NotDetected); Parainfluenza Virus 3 PCR Not Detected (NotDetected); Parainfluenza Virus 4 PCR Not Detected (NotDetected); Respiratory Syncytial VirusPCR Not Detected (NotDetected); Rhinovirus/Enterovirus PCR Not Detected (NotDetected)
--- NOTE | 2024-12-15 23:41 | History & Physical Report ---
Date of Service December 15, 2024 Assessment & Plan (1) Uses LifeVest defibrillator: (2) V tach: (3) Ventricular fibrillation: (4) History of placement of stent in LAD coronary artery: Plan The patient is a 74-year-old male with a past medical history including STEMI, severe LV dysfunction, nonsustained V. tach, tobacco use disorder, COPD with emphysema, transaminitis, pulmonary nodule, hypothyroidism. The patient had been admitted from 11/26/24-11/30/24, during which time he was found to have an acute DC, with a 100% mid LAD lesion that required 2 JESUS. 80% mid left circumflex post staged PCI with additional JESUS on 11/28/2024. 60% OM, jailed diagonal-medical management. Severe LV dysfunction with EF 25 to 30% with apical akinesis. Life vest in place. The patient presented to the emergency department as a referral from cardiology due to LifeVest defibrillation earlier this evening. Request from cardiology is that the patient be admitted to the hospital, with further potential management to be performed as needed this hospitalization. The patient reports that he has been shoveling snow, and has been running tobacco, he reports that there have been about 6 instances where he is noted a buzzing over the battery pack, but thought that maybe there was a loose connection. This evening he noted that there was a loud pop, he was out for about 30 seconds, and then came to, and was brought to the ED for assessment. #LifeVest defibrillation for episodes of ventricular fibrillation- Patient was noted to have episodes of defibrillation by his LifeVest earlier this evening, and was referred to the emergency department for admission by cardiology N.p.o. except medications Hold Eliquis, with last dose having been the morning of 12/15 Heparin drip standard dose without bolus Continue metoprolol succinate Continue Brilinta, with next dose due this evening to be given now Hold losartan due to borderline low blood pressure and acute kidney injury The patient will be admitted to telemetry for serial cardiac enzymes, serial EKG's, cardiac rhythm monitoring Consult cardiology Dr. Vicente Woods Serial CBC with differential, chemistry profile, PT/PTT/INR and troponin Troponin elevated at 109.9 Acute kidney injury- Creatinine 1.78, with base 1.18 Holding losartan 12.5 mg daily NSS at 80 mL/h x 1 L Recheck laboratories in the a.m. Chronic medical issues: Hyperlipidemia-Continue atorvastatin Diabetes mellitus/CHF-temporarily hold empagliflozin as this evening due to renal issues, can restart in the a.m. if appropriate GERD-continue pantoprazole COPD-continue Stiolto Respimat History of Present Illness Chief Complaint: The patient is referred to the emergency department by cardiology, after his LifeVest was found to have shocked him out of ventricular fibrillation earlier this evening. Primary Care Provider: Chris Howell DO The patient is a 74-year-old male with a past medical history including STEMI, severe LV dysfunction, nonsustained V. tach, tobacco use disorder, COPD with emphysema, transaminitis, pulmonary nodule, hypothyroidism. The patient had been admitted from 11/26/24-11/30/24, during which time he was found to have an acute DC, with a 100% mid LAD lesion that required 2 JESUS. 80% mid left circumflex post staged PCI with additional JESUS on 11/28/2024. 60% OM, jailed diagonal-medical management. Severe LV dysfunction with EF 25 to 30% with apical akinesis. Life vest in place. The patient presented to the emergency department as a referral from cardiology due to LifeVest defibrillation earlier this evening. Request from cardiology is that the patient be admitted to the hospital, with further potential management to be performed as needed this hospitalization. The patient reports that he has been shoveling snow, and has been running tobacco, he reports that there have been about 6 instances where he is noted a buzzing over the battery pack, but thought that maybe there was a loose connection. This evening he noted that there was a loud pop, he was out for about 30 seconds, and then came to, and was brought to the ED for assessment. Allergies Allergy/AdvReac Type Severity Reaction Status Date / Time No Known Allergies Allergy Unverified 12/09/24 15:31 Home Medications Medication Instructions Recorded Confirmed Type .Prevagen 1 tab PO DAILY 11/27/24 12/15/24 History nitroglycerin 0.4 mg sublingual 0.4 mg sublingual Q5M PRN chest 11/30/24 12/15/24 Rx tablet (Nitrostat) pain #30 tabs apixaban 5 mg tablet (Eliquis) 5 mg PO BID #180 tabs 12/09/24 12/15/24 Rx atorvastatin 80 mg tablet 80 mg PO DAILY #90 tabs 12/09/24 12/15/24 Rx empagliflozin 10 mg tablet 10 mg PO DAILY #90 tabs 12/09/24 12/15/24 Rx (Jardiance) losartan 25 mg tablet 12.5 mg (1/2 x 25 mg) PO DAILY #30 12/09/24 12/15/24 Rx tabs metoprolol succinate 25 mg 25 mg PO QAM #90 tabs 12/09/24 12/15/24 Rx tablet,extended release 24 hr pantoprazole 40 mg tablet,delayed 40 mg PO QAM #30 tabs 12/09/24 12/15/24 Rx release ticagrelor 90 mg tablet (Brilinta) 90 mg PO BID #180 tabs 12/09/24 12/15/24 Rx Stiolto Respimat 2 puff DAILY 12/15/24 12/15/24 History Past Med/Surg History Problem List (Updated 12/16/24 @ 04:27 by Mejia Anthony MD) History of placement of stent in LAD coronary artery Ventricular fibrillation History of CAD (coronary artery disease) (Acute) Uses LifeVest defibrillator (Acute) V tach (Acute) CAD (coronary artery disease) COPD with emphysema NSVT (nonsustained ventricular tachycardia) Transaminitis Pulmonary nodule Elevated troponin Hypothyroidism (acquired) Tobacco use disorder, severe, dependence (Acute) STEMI (ST elevation myocardial infarction) (Acute) Social History Smoking Status: Current every day smoker Tobacco Type: Cigarettes Cigarettes Per Day: 30; Do You Dip or Chew Tobacco: No; Hx Alcohol Use: Yes Hx Substance Use: No Preferred Language: Kiswahili Communication Ability: Effective Autocutter Required: No Beliefs That Will Affect Care: None Current Living Situation: Spouse Other Information That Helps Us Care for You: No Feels Safe at Home: Yes Safety Concerns: Feels Safe At This Time Assistive Devices: Denture - Upper, Denture - Lower and Glasses Review of Systems Review of Systems: The patient denies chest pain, palpitations, shortness of breath, dyspnea on exertion, cough, lower extremity swelling, sore throat, fevers, chills, sweats, weight change, fatigue, nausea, vomiting, diarrhea , constipation, abdominal pain, pelvic pain, blood in urine or stool, dysuria, urinary frequency or urgency, lightheadedness, dizziness, headache, rash, abnormal bruising or bleeding, imbalance, focal or generalized weakness, numbness or tingling in arms or legs, generalized arthralgias or myalgias, back or neck pain, or night sweats. The review of systems is otherwise negative other than for that already noted above, and at least 10 systems have been reviewed. Physical Exam Physical Exam: The patient is awake, alert and oriented 3, well developed and well nourished, normocephalic and atraumatic, lying in bed and in no acute distress. HEENT--PERRL, EOMI, mucous membranes and oropharynx mildly dry. Neck--supple. No JVD. No bruits. Thyroid normal, trachea midline, no adenopathy. Heart--normal S1 and S2. No murmurs, rubs or gallops. Lungs--clear bilaterally, no respiratory distress, no accessory muscle use. Abdomen--normal bowel sounds and soft. Nontender. Nondistended, no hernias or masses, no organomegaly. Extremities--no cyanosis or clubbing. No edema. There are good distal pulses b/l. Dermatologic--normal skin turgor, normal color, no abnormal lymph nodes, no rash. Neurologic--cranial nerves II through XII grossly intact. Rheumatologic--normal range of motion. Psychiatric--normal affect. Results & Data Results & Data Vital Signs (Past 12 Hours) Vital Signs Temp Pulse Pulse Resp BP BP Pulse Ox 12/15/24 22:02 83 18 94/66 L 98 12/15/24 21:40 83 12/15/24 21:26 36.4 C L 99 H 18 100/66 95 12/15/24 21:25 98 O2 Del Method 12/15/24 22:02 Room Air 12/15/24 21:40 12/15/24 21:26 Room Air 12/15/24 21:25 Room Air Laboratory Results Laboratory Results WBC 12.90 K/ul (4.8-10.8) H 12/15/24 21:40 RBC 4.04 M/uL (4.70-6.10) L 12/15/24 21:40 Hgb 11.9 g/dl (14.0-18.0) L 12/15/24 21:40 Hct 34.9 % (42.0-52.0) L 12/15/24 21:40 MCV 86.4 fL (80.0-100.0) 12/15/24 21:40 MCH 29.5 pg (25.0-34.0) 12/15/24 21:40 MCHC 34.1 g/dL (32.0-36.0) 12/15/24 21:40 RDW Std Deviation 46.5 fL (36.4-46.3) H 12/15/24 21:40 RDW Coeff of Roseanne 14.7 % (11.5-14.5) H 12/15/24 21:40 Plt Count 354 K/uL (130-400) 12/15/24 21:40 MPV 9.3 fL (9.4-12.4) L 12/15/24 21:40 Immature Gran % (Auto) 0.5 % 12/15/24 21:40 Neut % (Auto) 80.0 % 12/15/24 21:40 Lymph % (Auto) 13.3 % 12/15/24 21:40 [place] % (Auto) 4.2 % 12/15/24 21:40 Eos % (Auto) 1.2 % 12/15/24 21:40 Baso % (Auto) 0.8 % 12/15/24 21:40 Neut # (Auto) 10.33 K/uL (1.40-6.50) H 12/15/24 21:40 Lymph # (Auto) 1.71 K/uL (1.20-3.40) 12/15/24 21:40 [place] # (Auto) 0.54 K/uL (0.11-0.59) 12/15/24 21:40 Eos # (Auto) 0.15 K/uL (0.00-0.50) 12/15/24 21:40 Baso # (Auto) 0.10 K/uL (0.00-0.20) 12/15/24 21:40 Immature Gran # (Auto) 0.07 K/uL (0.01-0.20) 12/15/24 21:40 PT 11.2 Seconds (9.0-12.0) 12/15/24 21:40 INR 1.0 (0.9-1.1) 12/15/24 21:40 APTT 28 Seconds (21-31) 12/15/24 21:40 PTT Ratio 1.0 12/15/24 21:40 Heparin Anti-Xa, LM Wt 0.76 IU/ML (< 0.10) 12/15/24 21:40 Sodium 137 mmol/L (136-145) 12/15/24 21:40 Potassium 4.1 mmol/L (3.5-5.1) 12/15/24 21:40 Chloride 109 mmol/L (98-107) H 12/15/24 21:40 Carbon Dioxide 22 mmol/L (21-32) 12/15/24 21:40 Anion Gap 6 (3-11) 12/15/24 21:40 BUN 22 mg/dl (6-23) 12/15/24 21:40 Creatinine 1.78 mg/dl (0.6-1.4) H 12/15/24 21:40 Est Cr Clr Drug Dosing 31.7 ml/min 12/15/24 21:40 eGFR 39.54 12/15/24 21:40 BUN/Creatinine Ratio 12.4 (10-20) 12/15/24 21:40 Glucose 103 mg/dl (70-99(Fasting)) H 12/15/24 21:40 Calcium 9.1 mg/dl (8.6-10.3) 12/15/24 21:40 Magnesium 2.1 mg/dl (1.7-2.4) 12/15/24 21:40 Total Bilirubin 0.4 mg/dl (0.2-1.0) 12/15/24 21:40 AST 16 U/L (13-39) 12/15/24 21:40 ALT 14 U/L (7-52) 12/15/24 21:40 Alkaline Phosphatase 66 U/L (34-104) 12/15/24 21:40 Troponin I High Sens 95.4 pg/ml (0-20) H* D 12/16/24 00:15 Total Protein 7.1 gm/dl (6.0-8.3) 12/15/24 21:40 Albumin 4.1 gm/dl (3.4-5.0) 12/15/24 21:40 Globulin 3.0 gm/dl (2.5-4.0) 12/15/24 21:40 Albumin/Globulin Ratio 1.4 (0.9-2) 12/15/24 21:40 TSH 2.847 uIu/ml (0.300-4.500) 12/15/24 21:40 Adenovirus (PCR) Not Detected (NotDetected) 12/15/24 22:08 B. pertussis DNA (PCR) Not Detected (NotDetected) 12/15/24 22:08 B.parapertussis DNA PCR Not Detected (NotDetected) 12/15/24 22:08 C. pneumoniae DNA (PCR) Not Detected (NotDetected) 12/15/24 22:08 Coronavirus OC43 (PCR) Not Detected (NotDetected) 12/15/24 22:08 Coronavirus HKU1 (PCR) Not Detected (NotDetected) 12/15/24 22:08 Coronavirus 229E (PCR) Not Detected (NotDetected) 12/15/24 22:08 SARS-CoV-2 (PCR) Not Detected (NotDetected) 12/15/24 22:08 Coronavirus NL63 (PCR) Not Detected (NotDetected) 12/15/24 22:08 Human Metapneumovir PCR Not Detected (NotDetected) 12/15/24 22:08 Influenza Type A (PCR) Not Detected (NotDetected) 12/15/24 22:08 Influenza Type B (PCR) Not Detected (NotDetected) 12/15/24 22:08 M. pneumoniae (PCR) Not Detected (NotDetected) 12/15/24 22:08 Parainfluenza 1 (PCR) Not Detected (NotDetected) 12/15/24 22:08 Parainfluenza 2 (PCR) Not Detected (NotDetected) 12/15/24 22:08 Parainfluenza 3 (PCR) Not Detected (NotDetected) 12/15/24 22:08 Parainfluenza 4 (PCR) Not Detected (NotDetected) 12/15/24 22:08 RSV (PCR) Not Detected (NotDetected) 12/15/24 22:08 Entero/Rhino (PCR) Not Detected (NotDetected) 12/15/24 22:08 Code Status & VTE Plan Code Status Full code VTE Prophylaxis Plan VTE Prophylaxis will be ordered: Yes PG Care Time/CCT Total # of Minutes Spent Total Time Spent with Patient: Total time spent is greater than 50% in coordination of care (as documented) at patient's floor/unit and/or counseling patient: Coding Level of Care Code 40235 INT INP/OBS CARE 3/75MIN Diagnoses Uses LifeVest defibrillator Z95.810 V tach I47.20 Ventricular fibrillation I49.01 History of placement of stent in LAD coronary artery Z95.5
[2024-12-15 23:45] LABS: ANTI-Xa, LMWH(Low Molecular Wt 0.76 IU/ML (< 0.10)
[2024-12-15] MEDS: HEPARIN 25000 UNIT/500 ML 25,000 UNITS/500 ML BAG IV SCH (23:45)
[2024-12-15] MEDS: TICAGRELOR 90 MG TAB PO ONE (23:55)
[2024-12-15] MEDS: SODIUM CHLORIDE 0.9% 1,000 ML IV SCH (23:56)
[2024-12-16] MEDS: Heparin IV Adult Wt-Based Standard *NO* INITIAL Bolus Protocol IV SCH (00:02)
[2024-12-16] MEDS ORDERED: ACETAMINOPHEN 1000 MG/100 ML IV IV PRN (03:14)
[2024-12-16] MEDS ORDERED: NITROGLYCERIN SL 0.4 MG/TAB TAB SL PRN (03:14)
[2024-12-16 06:33] LABS: Basophils # (auto) 0.07 K/uL (0.00-0.20); Basophils % (auto) 0.8 %; Eosinophils # (auto) 0.24 K/uL (0.00-0.50); Eosinophils % (auto) 2.8 %; Hematocrit (blood only) 29.9 % (42.0-52.0); Hemoglobin 9.8 g/dl (14.0-18.0); Immature Granulocytes # (auto) 0.05 K/uL (0.01-0.20); Immature Granulocytes % (auto) 0.6 %; Lymphocytes # (auto) 2.07 K/uL (1.20-3.40); Lymphocytes % (auto) 24.4 %; Mean Corpuscular Hemoglobin 28.2 pg (25.0-34.0); Mean Corpuscular Hgb Conc 32.8 g/dL (32.0-36.0); Mean Corpuscular Volume 86.2 fL (80.0-100.0); Mean Platelet Volume 9.1 fL (9.4-12.4); Monocytes # (auto) 0.57 K/uL (0.11-0.59); Monocytes % (auto) 6.7 %; Neutrophils % (auto) 64.7 %; Platelet Count 274 K/uL (130-400); RDW Coefficient of Variation 14.6 % (11.5-14.5); RDW Standard Deviation 46.1 fL (36.4-46.3); Red Blood Count 3.47 M/uL (4.70-6.10)
[2024-12-16 06:51] LABS: Albumin Globulin Ratio 1.4 (0.9-2); Albumin Level 3.4 gm/dl (3.4-5.0); BUN Creatinine Ratio 16.7 (10-20); Bilirubin,Total 0.3 mg/dl (0.2-1.0); Calcium 8.6 mg/dl (8.6-10.3); Creatinine Clr Calc Pharmacy 35.4 ml/min; Globulin 2.4 gm/dl (2.5-4.0); Magnesium 2.1 mg/dl (1.7-2.4); Total Protein 5.8 gm/dl (6.0-8.3)
[2024-12-16 06:59] LABS: ANTI-Xa, UFH(UnfractionatedHep 0.56 IU/ml (0.3-0.7); Partial Thromboplastin Ratio 1.4; Partial Thromboplastin Time 39 Seconds (21-31); Prothrombin Time 11.2 Seconds (9.0-12.0)
[2024-12-16 07:12] LABS: Troponin I High Sensitivity 102.9 pg/ml (0-20)
[2024-12-16] MEDS: TICAGRELOR 90 MG TAB PO SCH (07:49)
[2024-12-16] MEDS: ATORVASTATIN 40 MG TAB PO SCH (07:50)
[2024-12-16] MEDS: PANTOprazole 40 MG TAB PO SCH (07:50)
[2024-12-16] MEDS: METOPROLOL SUCC 25MG EXT REL TAB PO SCH (07:50)
[2024-12-16] MEDS: UMECLIDINIUM/VILANTEROL 62.5/25MCG 7 PUFFS/INHALER INH SCH (07:52)
--- NOTE | 2024-12-16 10:52 | Cardiology Consultation ---
Date of Consultation December 16, 2024 Assessment & Plan (1) Ventricular fibrillation: (2) CAD (coronary artery disease): (3) Ischemic cardiomyopathy: Plan 1. Ventricular fibrillation: I reviewed the transmission from his vest. He did appear to develop an episode of ventricular fibrillation that was successfully terminated by his device. Subsequently he seemed to have a narrow complex rhythm possibly atrial fibrillation which was terminated with a second therapy. He certainly has substrate for additional malignant ventricular arrhythmias. While it is possible that his risk for ventricular fibrillation is attenuated over time with medical therapy and improvement in LV function, I think oriented position now to recommend a defibrillator for secondary prevention. I discussed this with the patient. Shared decision-making was employed. He has elected to proceed with implantation of a permanent defibrillator. Hopefully we can intensify his beta-blockade prior to discharge. 2. Coronary disease: Recent STEMI. He did not have his index symptoms of gastrointestinal complaints or vomiting leading up to his event. Not actually active at the time he had his therapy. Will continue his Brilinta and add aspirin today. He can resume his apixaban in another day or so. Will continue high-dose atorvastatin and beta-blockade. 3. Ischemic cardiomyopathy: He seems well compensated. On medical therapy with metoprolol succinate, Jardiance and losartan. History of Present Illness Reason for Consultation: Ventricular fibrillation, syncope Requesting Physician: Raj Attending Physician: Judd Gonzalez History of Present Illness The patient is a 74-year-old gentleman with a history of coronary disease having suffered an acute anterior myocardial infarction on 11/26/2024. He underwent percutaneous intervention to the LAD on that occasion and a staged intervention to his circumflex artery. He was noted to have severely reduced LV systolic function with anterior akinesis and ventricular thrombus. He was sent home on medical therapy and anticoagulation. A LifeVest was prescribed. The patient states that yesterday while performing some physical activity he had an episode of dizziness and lightheadedness. He apparently suffered a syncopal episode and this coincided with development of ventricular fibrillation. He had successful resuscitation by his wearable defibrillator. He received a second therapy while he was conscious. He does not remember the first therapy. Up until that point in time he had been feeling well. His index symptoms appear to be more gastrointestinal in nature and at the time of his presentation on November 26 he had significant nausea and vomiting. Though symptoms have not recurred. Currently feeling well. Currently denying dizziness or lightheadedness. Has not been aware of any palpitations. He has not had significant breathing trouble. No lower extremity edema. Allergies Allergy/AdvReac Type Severity Reaction Status Date / Time No Known Allergies Allergy Unverified 12/09/24 15:31 Home Medications Medication Instructions Recorded Confirmed Type .Prevagen 1 tab PO DAILY 11/27/24 12/15/24 History nitroglycerin 0.4 mg sublingual 0.4 mg sublingual Q5M PRN chest 11/30/24 12/15/24 Rx tablet (Nitrostat) pain #30 tabs apixaban 5 mg tablet (Eliquis) 5 mg PO BID #180 tabs 12/09/24 12/15/24 Rx atorvastatin 80 mg tablet 80 mg PO DAILY #90 tabs 12/09/24 12/15/24 Rx empagliflozin 10 mg tablet 10 mg PO DAILY #90 tabs 12/09/24 12/15/24 Rx (Jardiance) losartan 25 mg tablet 12.5 mg (1/2 x 25 mg) PO DAILY #30 12/09/24 12/15/24 Rx tabs metoprolol succinate 25 mg 25 mg PO QAM #90 tabs 12/09/24 12/15/24 Rx tablet,extended release 24 hr pantoprazole 40 mg tablet,delayed 40 mg PO QAM #30 tabs 12/09/24 12/15/24 Rx release ticagrelor 90 mg tablet (Brilinta) 90 mg PO BID #180 tabs 12/09/24 12/15/24 Rx Stiolto Respimat 2 puff DAILY 12/15/24 12/15/24 History Patient History Social History Smoking Status: Current every day smoker Tobacco Type: Cigarettes Cigarettes Per Day: 30; Do You Dip or Chew Tobacco: No; Hx Alcohol Use: Yes Hx Substance Use: No Preferred Language: [place]ian Communication Ability: Effective Boilers Inspector Required: No Beliefs That Will Affect Care: None Current Living Situation: Spouse Other Information That Helps Us Care for You: No Feels Safe at Home: Yes Safety Concerns: Feels Safe At This Time Assistive Devices: Denture - Upper, Denture - Lower and Glasses Review of Systems Review of Systems: Per HPI Physical Exam Physical Exam: The patient is alert and oriented. Mood and affect appeared normal. He answered all questions appropriately. HEENT: Pupils are equal and reactive to light and accommodation. Extraocular movements are intact. The sclerae are anicteric. Neuro: Cranial nerves intact Lungs: Clear to auscultation bilaterally. He has good air movement without use of accessory muscles. No rales wheezes or rhonchi. Cardiac: Heart demonstrates a regular rate and rhythm with occasional ectopy. Normal S1 and S2. No murmurs on examination. Pulses: The patient has palpable radial pulses bilaterally that are equal in intensity. Good perfusion of the right hand Extremities: There was no evidence of hypoperfusion. There is no cyanosis or clubbing. There is no edema. Skin: I did not appreciate any rashes on examination today. Discoloration of the back due to LifeVest dialectric. Results & Data Vital Signs (Past 12 Hours) Vital Signs Temp Pulse Pulse Resp BP BP Pulse Ox 12/16/24 07:06 36.7 C 73 19 100/68 95 12/16/24 03:23 36.5 C 90 18 123/86 98 12/16/24 03:15 72 12/16/24 02:43 75 17 111/71 94 12/16/24 02:00 66 17 106/73 96 12/16/24 01:39 70 12/16/24 00:00 71 17 111/71 97 O2 Del Method 12/16/24 07:06 Room Air 12/16/24 03:23 Room Air 12/16/24 03:15 12/16/24 02:43 Room Air 12/16/24 02:00 Room Air 12/16/24 01:39 12/16/24 00:00 Room Air Laboratory Results Abnormal Lab Results 12/15/24 12/15/24 12/16/24 21:40 22:08 00:15 WBC 12.90 H RBC 4.04 L Hgb 11.9 L Hct 34.9 L MCV 86.4 MCH 29.5 MCHC 34.1 RDW Std Deviation 46.5 H RDW Coeff of Roseanne 14.7 H Plt Count 354 MPV 9.3 L Immature Gran % (Auto) 0.5 Neut % (Auto) 80.0 Lymph % (Auto) 13.3 [place] % (Auto) 4.2 Eos % (Auto) 1.2 Baso % (Auto) 0.8 Neut # (Auto) 10.33 H Lymph # (Auto) 1.71 [place] # (Auto) 0.54 Eos # (Auto) 0.15 Baso # (Auto) 0.10 Immature Gran # (Auto) 0.07 PT 11.2 INR 1.0 APTT 28 PTT Ratio 1.0 Heparin Anti-Xa, LM Wt 0.76 Heparin Anti-Xa, Unfract Sodium 137 Potassium 4.1 Chloride 109 H Carbon Dioxide 22 Anion Gap 6 BUN 22 Creatinine 1.78 H Est Cr Clr Drug Dosing 31.7 eGFR 39.54 BUN/Creatinine Ratio 12.4 Glucose 103 H Calcium 9.1 Magnesium 2.1 Total Bilirubin 0.4 AST 16 ALT 14 Alkaline Phosphatase 66 Troponin I High Sens 109.9 H* 95.4 H* D Total Protein 7.1 Albumin 4.1 Globulin 3.0 Albumin/Globulin Ratio 1.4 TSH 2.847 Adenovirus (PCR) Not Detected B. pertussis DNA (PCR) Not Detected B.parapertussis DNA PCR Not Detected C. pneumoniae DNA (PCR) Not Detected Coronavirus OC43 (PCR) Not Detected Coronavirus HKU1 (PCR) Not Detected Coronavirus 229E (PCR) Not Detected SARS-CoV-2 (PCR) Not Detected Coronavirus NL63 (PCR) Not Detected Human Metapneumovir PCR Not Detected Influenza Type A (PCR) Not Detected Influenza Type B (PCR) Not Detected M. pneumoniae (PCR) Not Detected Parainfluenza 1 (PCR) Not Detected Parainfluenza 2 (PCR) Not Detected Parainfluenza 3 (PCR) Not Detected Parainfluenza 4 (PCR) Not Detected RSV (PCR) Not Detected Entero/Rhino (PCR) Not Detected 12/16/24 06:14 WBC 8.50 RBC 3.47 L Hgb 9.8 L Hct 29.9 L MCV 86.2 MCH 28.2 MCHC 32.8 RDW Std Deviation 46.1 RDW Coeff of Roseanne 14.6 H Plt Count 274 MPV 9.1 L Immature Gran % (Auto) 0.6 Neut % (Auto) 64.7 Lymph % (Auto) 24.4 [place] % (Auto) 6.7 Eos % (Auto) 2.8 Baso % (Auto) 0.8 Neut # (Auto) 5.50 Lymph # (Auto) 2.07 [place] # (Auto) 0.57 Eos # (Auto) 0.24 Baso # (Auto) 0.07 Immature Gran # (Auto) 0.05 PT 11.2 INR 1.0 APTT 39 H PTT Ratio 1.4 Heparin Anti-Xa, LM Wt Heparin Anti-Xa, Unfract 0.56 Sodium 140 Potassium 4.0 Chloride 111 H Carbon Dioxide 22 Anion Gap 7 BUN 26 H Creatinine 1.56 H Est Cr Clr Drug Dosing 35.4 eGFR 46.32 BUN/Creatinine Ratio 16.7 Glucose 98 Calcium 8.6 Magnesium 2.1 Total Bilirubin 0.3 AST 13 ALT 11 Alkaline Phosphatase 56 Troponin I High Sens 102.9 H* Total Protein 5.8 L Albumin 3.4 Globulin 2.4 L Albumin/Globulin Ratio 1.4 TSH Adenovirus (PCR) B. pertussis DNA (PCR) B.parapertussis DNA PCR C. pneumoniae DNA (PCR) Coronavirus OC43 (PCR) Coronavirus HKU1 (PCR) Coronavirus 229E (PCR) SARS-CoV-2 (PCR) Coronavirus NL63 (PCR) Human Metapneumovir PCR Influenza Type A (PCR) Influenza Type B (PCR) M. pneumoniae (PCR) Parainfluenza 1 (PCR) Parainfluenza 2 (PCR) Parainfluenza 3 (PCR) Parainfluenza 4 (PCR) RSV (PCR) Entero/Rhino (PCR) Diagnostic Findings Echocardiogram 11/29/2024: Moderately reduced LV systolic function with ejection fraction 3035%. Apical akinesis. Mid ventricle hypokinesis involving the anterior, anteroseptal, septal and lateral segments. No significant valvular heart disease. No LV thrombus. ECG Additional Comments: EKG obtained at the time admission revealed a sinus rhythm with PVCs. Left axis deviation. Old and evolving anterior myocardial infarction. PG Care Time/CCT Total # of Minutes Spent Total Time Spent with Patient: Total time spent is greater than 50% in coordination of care (as documented) at patient's floor/unit and/or counseling patient: Coding Level of Care Code 71845 INT INP/OBS CARE 3/75MIN Diagnoses Ventricular fibrillation I49.01 CAD (coronary artery disease) I25.10 Ischemic cardiomyopathy I25.5
[2024-12-16] MEDS: ASPIRIN 81 MG CHEW PO STA (11:20)
[2024-12-16] MEDS: BUPIVACAINE 0.25% PF 30 ML VIAL ONE (11:45)
[2024-12-16] MEDS: LIDOCAINE 1% LOCAL 20 ML VIAL ONE (11:45)
[2024-12-16] MEDS: WATER, STERILE FOR INJ 10 ML VIAL ONE (11:45)
[2024-12-16] MEDS: ceFAZolin 330 MG/ML 1 GM VIAL ONE (11:46)
[2024-12-16] MEDS: VANCOMYCIN HCL 1000MG/20ML VIAL ONE (12:17)
[2024-12-16] MEDS: MIDAZOLAM HCL 5 MG/ML 1 ML VIAL ONE (12:48)
[2024-12-16] MEDS: fentaNYL citrate PF 100 MCG/2 ML VIAL ONE (12:48)
[2024-12-16] MEDS ORDERED: oxyCODONE HCL IR 5 MG TAB (IMMEDIATE RELEASE) PO PRN (12:59)
--- NOTE | 2024-12-16 12:59 | Electrophysiology Report ---
Date of Service December 16, 2024 Electrophysiology Procedure Electrophysiology Procedure Report Procedure performed: Implantation of dual-chamber ICD Staff rubber heel and sole press tender: Vicente Mota MD Indication: The patient is a 74-year-old gentleman with a history of coronary artery disease having suffered a recent myocardial infarction. He presented to the hospital with an episode of ventricular fibrillation requiring defibrillation by a wearable defibrillator. No reversible cause was identified. The patient was thought to be a candidate for an ICD as secondary prevention against sudden cardiac . Procedure detail: The patient was informed Holly benefits alternatives to the intended procedure. He understood and wished to proceed. He is taken to electrophysiology suite in the fasting state. Conscious sedation was administered per protocol and the patient was monitored electrocardiography throughout today's procedure. Preoperative antibiotic was also administered. The left upper pectoral area was prepped and draped in usual sterile fashion. This area was anesthetized using subcutaneous ministration of lidocaine and Marcaine solution. An incision was made at the site and carried down the prepectoralis fascia using sharp dissection. Electrocautery was also employed for dissection as well as for hemostasis. The device pocket was fashioned and the tissues above the pectoralis muscle. Subsequently the left axillary vein was accessed twice using modified center technique. A micropuncture kit was employed for access. A sheath was placed over guidewire and use facilitate passage of the ICD lead to the right ventricular apex under fluoroscopic guidance. Adequate sensing and threshold parameters were obtained prior to active fixation of the lead to the endocardial surface. The proximal portion of the lead was then sutured to prepectoralis fascia with nonabsorbable suture. Sheath was placed over the remaining guidewire and used to facilitate passage of a pacing lead to the right atrium under fluoroscopic guidance. Adequate sensing and threshold parameters were obtained prior to active fixation of the lead to the endocardial surface. The proximal portion lead was then sutured prepectoralis fat using nonabsorbable suture. The device pocket is irrigated with antibiotic solution. The leads were then attached to the device device and leads were then placed in the pocket and the pocket was closed in 3 layers of absorbable suture. Steri-Strips and sterile dressing were applied. The device was tested noninvasively prior to inclusion the procedure. The patient tolerated procedure well. There were no immediate complications. Equipment used: New pulse generator. Pediatric Physical Therapist Prized. Model number DDPA 2 D4 serial number [id number] Right atrial lead: Pediatric Physical Therapist Medtr[employer]. Model #5076 serial number [id number] Right ventricular lead: Pediatric Physical Therapist [employer]. Model number 6935M serial number [id number] Measured data: Right atrial lead: P waves measured 3.1 mV. Pacing threshold was 0.5 V at 0.4 ms with pacing impedance of 532 ohms Right ventricular lead: R waves measured 5.1 mV. Pacing threshold was 0.75 V at 0.4 ms with a pacing impedance of 380 ohms Impression: Successful implantation of dual-chamber ICD MNPG Electrophysiology codes ICD Procedure 1: ICD: 69323 Insert single or dual ICD system PG Moderate Sedation Codes Moderate Sedation Codes Procedure 1: Sedation/Anesthesia: 07885 Mod Sedation by the same physician;Init15 Min Child Age 5 & Up Procedure 2: Sedation/Anesthesia: 05765 Mod Sedation by the same physician; Ea [id number] Minutes
--- NOTE | 2024-12-16 12:59 | Post Anesthesia Assessment ---
Date of Service December 16, 2024 Post Sedation Assessment Vital Signs Temp Pulse Pulse Resp BP BP Pulse Ox 12/16/24 11:35 36.7 C 72 16 116/76 95 12/16/24 11:03 37 C 67 20 130/92 97 12/16/24 07:06 36.7 C 73 19 100/68 95 12/16/24 03:23 36.5 C 90 18 123/86 98 12/16/24 03:15 72 12/16/24 02:43 75 17 111/71 94 12/16/24 02:00 66 17 106/73 96 12/16/24 01:39 70 12/16/24 00:00 71 17 111/71 97 12/15/24 22:02 83 18 94/66 L 98 12/15/24 21:40 83 12/15/24 21:26 36.4 C L 99 H 18 100/66 95 12/15/24 21:25 98 O2 Del Method 12/16/24 11:35 Room Air 12/16/24 11:03 Room Air 12/16/24 07:06 Room Air 12/16/24 03:23 Room Air 12/16/24 03:15 12/16/24 02:43 Room Air 12/16/24 02:00 Room Air 12/16/24 01:39 12/16/24 00:00 Room Air 12/15/24 22:02 Room Air 12/15/24 21:40 12/15/24 21:26 Room Air 12/15/24 21:25 Room Air Recovery Score Activity: Moves 4 extremities Respiration: Deep Breath/Cough Circulation: +/-20% PreAnes Value Consciousness: Fully Awake Oxygen Saturation: O2 needed for >90% Discharge Sedation Level of Care: Fast Track Phase II Post Sedation Plan On clinical assessment, the patient appears to have tolerated the sedation without complications. Patient is recovering as anticipated. Patient will continue to be monitored by nursing and may be discharged when sedation discharge criteria are met per below protocol. Upon Completions of procedure up to 15 minutes continue every 5 minute vital signs and the P.A.R. score; then discharge to a Phase I or Fast Track to Phase II per the following guidelines: * Discharge Patient to appropriate Phase II area if PAR is 8 or greater or return to pre- procedure baseline. The post - procedure orders will be as directed. * If PAR score is less than 8 or not return to pre-procedure baseline then patient will follow Phase I monitoring till PAR is reached for Phase II. The Phase I may be done in procedure room or may call to secure a Phase I area. * If naloxone or flumazenil are used for reversal, hold in Phase I for continued monitoring from when last reversal dose was given for a minimum of 60 minutes or longer pending the nurse and/or physician discretion of patient condition before discharge to Phase II. Please call the Sedation Physician to re-evaluate and complete post-note for discharge to Phase II area. Do NOT discharge from procedure sedation or Phase 1 until post- sedation evaluation note is complete by procedure /sedation MD Sedation Discharge Instructions to be given to the patient at discharge to home.
--- NOTE | 2024-12-16 15:00 | Electrocardiogram Report ---
Test Reason : Blood Pressure : */* mmHG Vent. Rate : 65 BPM Atrial Rate : 65 BPM P-R Int : 126 ms QRS Dur : 82 ms QT Int : 474 ms P-R-T Axes : 57 -63 197 degrees QTcB Int : 492 ms Sinus rhythm with occasional Premature ventricular complexes Left axis deviation Low voltage QRS Evolving anteroseptal infarct Abnormal ECG When compared with ECG of 15-Dec-2024 21:36, (unconfirmed) Premature ventricular complexes are now Present Confirmed by Vicente Mota ([id number]) on 12/16/2024 2:59:57 PM Referred By: Vicente Woods Confirmed By: Vicente Mota
--- NOTE | 2024-12-16 15:04 | Electrocardiogram Report ---
Test Reason : Blood Pressure : */* mmHG Vent. Rate : 80 BPM Atrial Rate : 80 BPM P-R Int : 152 ms QRS Dur : 78 ms QT Int : 430 ms P-R-T Axes : 79 -64 247 degrees QTcB Int : 495 ms Normal sinus rhythm Left axis deviation Low voltage QRS Evolving anteroseptal DE Abnormal ECG When compared with ECG of 28-Nov-2024 21:55, Questionable change in initial forces of Lateral leads ST no longer elevated in Anterior leads T wave inversion now evident in Inferior leads Confirmed by Vicente Mota ([id number]) on 12/16/2024 3:04:16 PM Referred By: Vicente Woods Confirmed By: Vicente Mota
--- NOTE | 2024-12-16 15:10 | Electrocardiogram Report ---
Test Reason : Blood Pressure : */* mmHG Vent. Rate : 66 BPM Atrial Rate : 66 BPM P-R Int : 140 ms QRS Dur : 74 ms QT Int : 482 ms P-R-T Axes : 38 39 183 degrees QTcB Int : 505 ms Atrial-paced rhythm with Premature atrial complexes Low voltage QRS Evolving anterolateral PR Prolonged QT Abnormal ECG When compared with ECG of 16-Dec-2024 05:28, (unconfirmed) Electronic atrial pacemaker has replaced Sinus rhythm QRS axis Shifted right Nonspecific T wave abnormality has replaced inverted T waves in Inferior leads Confirmed by Vicente Mota ([id number]) on 12/16/2024 3:10:24 PM Referred By: Vicente Woods Confirmed By: Vicente Mota
[2024-12-16] MEDS: ceFAZolin 1000MG 1,000 MG/7.5 ML SYR IV ONE (21:00)
--- NOTE | 2024-12-16 21:26 | Hospitalist Progress Note ---
Date of Service December 16, 2024 Assessment & Plan (1) Uses LifeVest defibrillator: (2) V tach: (3) Ventricular fibrillation: (4) History of placement of stent in LAD coronary artery: Plan The patient is a 74-year-old male with a past medical history including STEMI, severe LV dysfunction, nonsustained V. tach, tobacco use disorder, COPD with emphysema, transaminitis, pulmonary nodule, hypothyroidism. The patient had been admitted from 11/26/24-11/30/24, during which time he was found to have an acute AR, with a 100% mid LAD lesion that required 2 JESUS. 80% mid left circumflex post staged PCI with additional JESUS on 11/28/2024. 60% OM, jailed diagonal-medical management. Severe LV dysfunction with EF 25 to 30% with apical akinesis. Life vest in place. The patient presented to the emergency department as a referral from cardiology due to LifeVest defibrillation earlier this evening. Request from cardiology is that the patient be admitted to the hospital, with further potential management to be performed as needed this hospitalization. The patient reports that he has been shoveling snow, and has been running tobacco, he reports that there have been about 6 instances where he is noted a buzzing over the battery pack, but thought that maybe there was a loose connection. This evening he noted that there was a loud pop, he was out for about 30 seconds, and then came to, and was brought to the ED for assessment. #LifeVest defibrillation for episodes of ventricular fibrillation- Patient was noted to have episodes of defibrillation by his LifeVest earlier this evening, and was referred to the emergency department for admission by cardiology N.p.o. except medications Hold Eliquis, with last dose having been the morning of 12/15 Heparin drip standard dose without bolus Continue metoprolol succinate Continue Brilinta, with next dose due this evening to be given now Hold losartan due to borderline low blood pressure and acute kidney injury The patient will be admitted to telemetry for serial cardiac enzymes, serial EKG's, cardiac rhythm monitoring Consult cardiology Dr. Vicente Woods Serial CBC with differential, chemistry profile, PT/PTT/INR and troponin Troponin elevated at 109.9 placed defibrillator, will monitor overnight and anticipate discharge in AM Acute kidney injury- Creatinine 1.78, with base 1.18 Holding losartan 12.5 mg daily NSS at 80 mL/h x 1 L Recheck laboratories in the a.m. Chronic medical issues: Hyperlipidemia-Continue atorvastatin Diabetes mellitus/CHF-temporarily hold empagliflozin as this evening due to renal issues, can restart in the a.m. if appropriate GERD-continue pantoprazole COPD-continue Stiolto Respimat Admission and Anticipated Discharge Date Admission Date: December 15, 2024 Subjective Patient reports no new symptoms. He tolerated procedure. Physical Exam Physical Exam: The patient is awake, alert and oriented 3, well developed and well nourished, normocephalic and atraumatic, lying in bed and in no acute distress. HEENT--PERRL, EOMI, Rheumatologic--normal range of motion. Psychiatric--normal affect. Results & Data Results & Data Vital Signs (Past 12 Hours) Vital Signs Temp Pulse Pulse Resp BP Pulse Ox O2 Del Method 12/16/24 19:00 36.6 C 67 18 104/69 96 Room Air 12/16/24 15:45 36.6 C 67 18 96/61 L 97 Room Air 12/16/24 15:00 61 16 94/61 L 98 Room Air 12/16/24 14:30 36.2 C L 61 16 96/62 L 97 Room Air 12/16/24 14:00 36.6 C 79 16 99/68 L 92 Room Air 12/16/24 13:45 36.6 C 64 16 93/61 L 97 Room Air 12/16/24 13:30 36.6 C 66 16 94/62 L 96 Room Air 12/16/24 13:15 72 20 97/66 L 95 Room Air 12/16/24 13:00 70 20 101/67 97 Room Air 12/16/24 11:35 36.7 C 72 16 116/76 95 Room Air 12/16/24 11:03 37 C 67 20 130/92 97 Room Air PG Care Time/CCT Total # of Minutes Spent Total Time Spent with Patient: Total time spent is greater than 50% in coordination of care (as documented) at patient's floor/unit and/or counseling patient: Coding Level of Care Code 60611 SUB INP/OBS CARE 2/35MIN Diagnoses Uses LifeVest defibrillator Z95.810 V tach I47.20 Ventricular fibrillation I49.01 History of placement of stent in LAD coronary artery Z95.5
[2024-12-17 03:58] VITALS: TEMP 98.1
[2024-12-17 06:55] LABS: Basophils # (auto) 0.07 K/uL (0.00-0.20); Basophils % (auto) 0.8 %; Eosinophils # (auto) 0.17 K/uL (0.00-0.50); Eosinophils % (auto) 1.8 %; Hematocrit (blood only) 32.4 % (42.0-52.0); Hemoglobin 10.7 g/dl (14.0-18.0); Immature Granulocytes # (auto) 0.05 K/uL (0.01-0.20); Immature Granulocytes % (auto) 0.5 %; Lymphocytes # (auto) 1.58 K/uL (1.20-3.40); Mean Corpuscular Hemoglobin 28.5 pg (25.0-34.0); Mean Corpuscular Volume 86.2 fL (80.0-100.0); Mean Platelet Volume 9.3 fL (9.4-12.4); Monocytes # (auto) 0.67 K/uL (0.11-0.59); Monocytes % (auto) 7.2 %; Neutrophils # (auto) 6.75 K/uL (1.40-6.50); Neutrophils % (auto) 72.7 %; Platelet Count 260 K/uL (130-400); RDW Coefficient of Variation 14.7 % (11.5-14.5); RDW Standard Deviation 46.5 fL (36.4-46.3); Red Blood Count 3.76 M/uL (4.70-6.10); White Blood Count 9.29 K/ul (4.8-10.8)
[2024-12-17 07:27] LABS: Partial Thromboplastin Time 27 Seconds (21-31); Prothrombin Time 11.1 Seconds (9.0-12.0)
[2024-12-17 07:40] LABS: Albumin Globulin Ratio 1.4 (0.9-2); Albumin Level 3.5 gm/dl (3.4-5.0); BUN Creatinine Ratio 18.4 (10-20); Bilirubin,Total 0.6 mg/dl (0.2-1.0); Calcium 8.8 mg/dl (8.6-10.3); Creatinine Clr Calc Pharmacy 38.1 ml/min; Globulin 2.5 gm/dl (2.5-4.0); Potassium 4.4 mmol/L (3.5-5.1)
[2024-12-17 07:53] VITALS: BP 111/67; RESP 17; O2SAT 98
[2024-12-17] MEDS: ACETAMINOPHEN 325 MG TAB PO PRN (08:17)
[2024-12-17] MEDS: ASPIRIN 81 MG CHEW PO ONE (09:20)
[2024-12-17 09:53] VITALS: PULSE 68
--- NOTE | 2024-12-17 10:17 | XRay Report ---
XR chest 2V PA/lateral CLINICAL HISTORY: EXACT TIME ORDERED Evaluate for pneumothorax and l COMPARISON STUDY: 11/26/2024 FINDINGS: Interval dual-lead left-sided pacemaker is present. No pneumothorax seen. No consolidation or pleural effusion. Stable hyperexpanded lungs. Heart size and pulmonary vasculature are normal. The re is expected mild soft tissue gas at the left upper chest. IMPRESSION: No pneumothorax. ACT 112: Negative or not required by law. Electronically signed by: Oleg Asencio M.D. 12/17/2024 10:15 AM
[2024-12-17] MEDS: METOPROLOL SUCC 25MG EXT REL TAB PO ONE (10:23)
--- NOTE | 2024-12-17 10:36 | Discharge Summary ---
Discharge Summary Date of Service December 17, 2024 Principal Dx & Hospital Course #1 = Principal Diagnosis (1) Uses LifeVest defibrillator: (2) V tach: (3) Ventricular fibrillation: (4) History of placement of stent in LAD coronary artery: Plan The patient is a 74-year-old male with a past medical history including STEMI, severe LV dysfunction, nonsustained V. tach, tobacco use disorder, COPD with emphysema, transaminitis, pulmonary nodule, hypothyroidism. The patient had been admitted from 11/26/24-11/30/24, during which time he was found to have an acute ME, with a 100% mid LAD lesion that required 2 JESUS. 80% mid left circumflex post staged PCI with additional JESUS on 11/28/2024. 60% OM, jailed diagonal-medical management. Severe LV dysfunction with EF 25 to 30% with apical akinesis. Life vest in place. The patient presented to the emergency department as a referral from cardiology due to LifeVest defibrillation earlier this evening. Request from cardiology is that the patient be admitted to the hospital, with further potential management to be performed as needed this hospitalization. The patient reports that he has been shoveling snow, and has been running tobacco, he reports that there have been about 6 instances where he is noted a buzzing over the battery pack, but thought that maybe there was a loose connection. This evening he noted that there was a loud pop, he was out for about 30 seconds, and then came to, and was brought to the ED for assessment. #LifeVest defibrillation for episodes of ventricular fibrillation- Patient was noted to have episodes of defibrillation by his LifeVest earlier this evening, and was referred to the emergency department for admission by cardiology Don Cee, with last dose having been the morning of 12/15 Heparin drip standard dose without bolus: prior to procedure. Continue metoprolol succinate Continue Brilinta, with next dose due this evening to be given now Held losartan due to borderline low blood pressure and acute kidney injury Placed dual chamber ICD. Patient tolerated procedure and will be discharged. #Acute kidney injury- Creatinine 1.78, with base 1.18 Holding losartan 12.5 mg daily NSS at 80 mL/h x 1 L creatinine improved to 1.4 #Chronic systolic CHF 74-year-old male who presents after an episode of Ventricular fibrillation that was successfully terminated by his vest device. Patient with history of severe left ventricular dysfunction with an EF of 25 to 30% and apical hypokinesis. Treatment: LifeVest, telemetry, I's and O's, daily weights, Chronic medical issues: Hyperlipidemia-Continue atorvastatin Diabetes mellitus/CHF-temporarily hold empagliflozin as this evening due to renal issues, can restart in the a.m. if appropriate GERD-continue pantoprazole COPD-continue Stiolto Respimat Admission HPI Per Admitting Provider The patient is a 74-year-old male with a past medical history including STEMI, severe LV dysfunction, nonsustained V. tach, tobacco use disorder, COPD with emphysema, transaminitis, pulmonary nodule, hypothyroidism. The patient had been admitted from 11/26/24-11/30/24, during which time he was found to have an acute ME, with a 100% mid LAD lesion that required 2 JESUS. 80% mid left circumflex post staged PCI with additional JESUS on 11/28/2024. 60% OM, jailed diagonal-medical management. Severe LV dysfunction with EF 25 to 30% with apical akinesis. Life vest in place. The patient presented to the emergency department as a referral from cardiology due to LifeVest defibrillation earlier this evening. Request from cardiology is that the patient be admitted to the hospital, with further potential management to be performed as needed this hospitalization. The patient reports that he has been shoveling snow, and has been running tobacco, he reports that there have been about 6 instances where he is noted a buzzing over the battery pack, but thought that maybe there was a loose connection. This evening he noted that there was a loud pop, he was out for about 30 seconds, and then came to, and was brought to the ED for assessment. Discharge Exam The patient is awake, alert and oriented 3, well developed and well nourished, normocephalic and atraumatic, lying in bed and in no acute distress. HEENT--PERRL, EOMI, Rheumatologic--normal range of motion. Psychiatric--normal affect. Discharge Plan Discharge Items Patient Disposition: Home - Self-Care Reason For Visit: LIFE VEST DEFRIBILLATION Discharge Diagnosis: life vest defibrillation Ventricular fibrillation Condition on Discharge: Good Activity: Per Instructions section Activity Comment: No lifting left arm above shoulder behind neck for 6 weeks Lifting: No more than 10 pounds Lifting Comment: No more than 10 pounds with left arm Bathing: Keep incision dry Bathing Comment: Keep wound dry and Steri-Strips intact until follow-up in our clinic. Sexual Activity: After one week Exercise/Sports: Gradually increase as tolerated Exercise Comment: No very strenuous exertion Driving/Machine Use: No driving for 30 days Non-emergency contact: Supply Chain Procurement Manager Call non-emergency contact if: you have any medication questions, you have a fever, your wound has increased redness, your wound has increased drainage and your wound pain has increased Follow-up/Referrals: Chrsi Howell, [Primary Care Provider] - 12/23/24 1:30 pm (Hospital follow up with Dr. Howell - Monday12/23/24 at 1:30) Diet: Heart Healthy Addtl Attending Provider Instructions: After having an implantable cardioverter defibrillator (ICD) placed, you should follow these instructions to care for yourself: Protect the incision Keep the incision clean and dry for 45 days.After that, you can shower, but avoid spraying water directly on the incision.You can cover the incision with a gauze bandage if it weeps or rubs against clothing Limit activity Avoid lifting anything heavier than 1015 pounds for 23 weeks.Don't push, pu ll, or twist too much.For 46 weeks, don't raise your arm higher than your shoulder on the side of the ICD. See your utility bill collection clerk You'll need regular follow-up visits with your utility bill collection clerk to make sure your ICD is working properly. Be careful around magnets Some devices with strong magnetic cabello might interfere with your defibrillator. Be careful with electronic devices Keep cell phones and other electronic devices at least 6 inches away from your ICD. Report any pain or swelling Let your nurse know if you experience pain or swelling at the device insertion site. You may resume Eliquis tomorrow morning. Do not take tonight's dose. Pending Studies at Discharge: No Stand-Alone Forms: My [facility] [employer], Smoking Cessation Medications and DC Order Prescriptions: Continued Eliquis 5 mg tablet 5 mg PO BID Qty: 180 3RF Jardiance 10 mg tablet 10 mg PO DAILY Qty: 90 3RF metoprolol succinate 25 mg tablet extended release 24 hr 25 mg PO QAM Qty: 90 3RF Brilinta 90 mg tablet 90 mg PO BID Qty: 180 3RF pantoprazole 40 mg tablet,delayed release (DR/EC) 40 mg PO QAM Qty: 30 6RF .Prevagen 1 tab PO DAILY nitroglycerin [Nitrostat] 0.4 mg Tablet, Sublingual 0.4 mg sublingual Q5M PRN (Reason: chest pain) Qty: 30 0RF Stiolto Respimat inhaler 2 puff DAILY atorvastatin 80 mg tablet 80 mg PO DAILY Qty: 90 3RF amiodarone 400 mg tablet 400 mg PO BID 30 Days Qty: 60 3RF Rx Instructions: Take 1 tablet by mouth twice daily for 7 days then reduce to 1 tablet by mouth daily. Held losartan 25 mg tablet 12.5 mg PO DAILY Qty: 30 6RF Hold Instructions: Provider's Order Talk with Primary Care. before restarting. Discharge Orders: Discharge Order (Routine); Ordered 12/17/24 Ordered By: Judd Gonzalez Admission Data Admit Date/Time: 12/15/24 23:40 Attending Provider: Judd Gonzalez Admit Provider: Mejia Anthony Primary Care Provider: Chris Howell Other Providers: Vicente Mota Other Interventions: Discharge Summary Assessment (RN) Last Done: 12/17/24 10:20 Hospital Stay Data Consultations 12/15/24 22:41 ED Decision to Admit Stat 12/16/24 03:14 Consult Cardiology Routine Procedures Performed Operation Date: 12/16/24 11:00 Actual Procedures p ICD Insertion Single or Dual - Vicente Mota MD Diagnostic Imagining Performed 12/16/24 11:00 EP Lab Images for PACS ONCE Pending Results Patient Have Any Pending Studies at Discharge: No Discharge Instructions Given to Patient (Per Discharging Provider) After having an implantable cardioverter defibrillator (ICD) placed, you should follow these instructions to care for yourself: Protect the incision Keep the incision clean and dry for 45 days.After that, you can shower, but avoid spraying water directly on the incision.You can cover the incision with a gauze bandage if it weeps or rubs against clothing Limit activity Avoid lifting anything heavier than 1015 pounds for 23 weeks.Don't push, pull, or twist too much.For 46 weeks, don't raise your arm higher than your shoulder on the side of the ICD. See your utility bill collection clerk You'll need regular follow-up visits with your utility bill collection clerk to make sure your ICD is working properly. Be careful around magnets Some devices with strong magnetic cabello might interfere with your defibrillator. Be careful with electronic devices Keep cell phones and other electronic devices at least 6 inches away from your ICD. Report any pain or swelling Let your nurse know if you experience pain or swelling at the device insertion site. You may resume Eliquis tomorrow morning. Do not take tonight's dose. Total Time Total Time Spent Total Time Spent (In Minutes): 32 Coding Level of Care Code 69229 INP/OBS DISCH >30 MIN Diagnoses Uses LifeVest defibrillator Z95.810 V tach I47.20 Ventricular fibrillation I49.01 History of placement of stent in LAD coronary artery Z95.5
[2024-12-17] MEDS: AMIODARONE 200 MG TAB PO SCH (12:01)
--- NOTE | 2024-12-17 13:58 | Electrocardiogram Report ---
Test Reason : Blood Pressure : */* mmHG Vent. Rate : 75 BPM Atrial Rate : 75 BPM P-R Int : 148 ms QRS Dur : 74 ms QT Int : 454 ms P-R-T Axes : 75 -77 223 degrees QTcB Int : 506 ms Sinus rhythm with frequent Premature ventricular complexes and occasional demand atrial pacing Left axis deviation Inferior infarct , age undetermined Anteroseptal infarct Prolonged QT Abnormal ECG Confirmed by Vicente Mota ([id number]) on 12/17/2024 1:57:36 PM Referred By: Vicente Woods Confirmed By: Vicente Mota
== END 2024-12-17 14:01 | disposition home or self-care (01) | DRG 276 ==
LOC: ED 21:25 → SUATTDRO 23:40 → 2S 23:40
PROC: EPB.ICD (2024-12-16 11:00)
DX: I47.20 Ventricular tachycardia, unspecified; K21.9 Gastro-esophageal reflux disease without esophagitis; Z79.84 Long term (current) use of oral hypoglycemic drugs; Z79.899 Other long term (current) drug therapy; I25.5 Ischemic cardiomyopathy; N17.9 Acute kidney failure, unspecified; E11.9 Type 2 diabetes mellitus without complications; I25.10 Atherosclerotic heart disease of native coronary artery without angina pectoris; Z95.811 Presence of heart assist device; J43.9 Emphysema, unspecified; Y93.H1 Activity, digging, shoveling and raking; I50.22 Chronic systolic (congestive) heart failure; J44.9 Chronic obstructive pulmonary disease, unspecified; Z95.5 Presence of coronary angioplasty implant and graft; Z79.01 Long term (current) use of anticoagulants; I21.3 ST elevation (STEMI) myocardial infarction of unspecified site; I49.01 Ventricular fibrillation; E03.9 Hypothyroidism, unspecified; E78.5 Hyperlipidemia, unspecified; F17.210 Nicotine dependence, cigarettes, uncomplicated